=== PATIENT | male | born 1985 | race Caucasian/White ===

== ENCOUNTER 2021-01-02 11:29 | Emergency (ER) | payer OTHER ==
[~2021-01-02] VITALS: Ht 180.3 cm; Wt 100.0 kg
[2021-01-02 14:27] LABS: BASO % 0.1 % (0.0-1.0); EOS # 0.1 10^3/uL (0.0-0.5); EOS % 0.9 % (0.0-3.0); HEMATOCRIT 46.1 % (42.0-52.0); HEMOGLOBIN 14.9 g/dl (13.5-17.5); LYMPH # 1.1 10^3/uL (1.5-5.0); LYMPH % 8.1 % (24.0-44.0); MEAN CORPUSCULAR HGB CONC 32.3 g/dl (32.0-36.5); MEAN CORPUSCULAR VOLUME 83.7 fl (80.0-96.0); MONO # 1.2 10^3/uL (0.0-0.8); MONO % 8.2 % (2.0-8.0); NEUTROPHILS # 11.6 10^3/uL (1.5-8.5); NEUTROPHILS % 82.3 % (36.0-66.0); PLATELET COUNT, AUTOMATED 216 10^3/uL (150-450); RED BLOOD COUNT 5.51 10^6/uL (4.30-6.10); WHITE BLOOD COUNT 14.1 10^3/uL (4.0-10.0)
[2021-01-02] MEDS ORDERED: VALA1TAB5 PO (14:28)
[2021-01-02 14:34] LABS: APPEARANCE, URINE CLEAR (CLEAR); BACTERIA, URINE AUTO NEGATIVE (NEGATIVE); BILIRUBIN, URINE AUTO NEGATIVE (NEGATIVE); BLOOD, URINE BLOOD 1+ (NEGATIVE); COLOR, URINE STRAW (YELLOW); GLUCOSE, URINE (UA) AUTO NEGATIVE (NEGATIVE); KETONE, URINE AUTO TRACE mg/dL (NEGATIVE); LEUKOCYTE ESTERASE, URINE AUTO NEGATIVE (NEGATIVE); MUCUS, URINE SMALL (NEGATIVE); NITRITE, URINE AUTO NEGATIVE (NEGATIVE); PROTEIN, URINE AUTO NEGATIVE (NEGATIVE); RBC, URINE AUTO 2 /HPF (0-3); SPECIFIC GRAVITY URINE AUTO 1.006 (1.002-1.035); SQUAMOUS EPITHELIAL CELL UR AU 0 /HPF (0-6); UROBILINOGEN, URINE AUTO 0.2 mg/dL (0.0-2.0); WBC, URINE AUTO 1 /HPF (0-3)
[2021-01-02 14:56] LABS: BLOOD UREA NITROGEN 13 MG/DL (7-18); CARBON DIOXIDE LEVEL 27 MEQ/L (21-32); CHLORIDE LEVEL 107 MEQ/L (98-107); CK-MB VALUE MASS < 1.0 NG/ML (<3.6); CPK CREATINE PHOSPHOKINASE 206 U/L (39-308); CREATININE FOR GFR 1.27 MG/DL (0.70-1.30); GLOMERULAR FILTRATION RATE > 60.0 (>60); GLUCOSE, FASTING 80 MG/DL (70-100); MB/CK RELATIVE INDEX 0.49 (< OR =4); POTASSIUM SERUM 4.2 MEQ/L (3.5-5.1); SODIUM LEVEL 139 MEQ/L (136-145); TROPONIN I < 0.02 NG/ML (< 0.10)
[2021-01-02 15:29] VITALS: BP 137/67
== END 2021-01-02 15:30 | disposition home or self-care (01) ==
LOC: M ED 11:29
DX: B02.9 Zoster without complications (principal); R53.83 Other fatigue; G89.29 Other chronic pain; M54.5 Low back pain; F17.200 Nicotine dependence, unspecified, uncomplicated

== ENCOUNTER 2021-04-27 12:42 | Inpatient (IN) | payer OTHER ==
[~2021-04-27] VITALS: Ht 180.3 cm; Wt 96.8 kg
[~2021-04-27 12:42] MED LIST: VALA1TAB5 PO
--- OUTSIDE RECORDS SUMMARY | 2021-04-27 12:47 | CCD ---
Author Author [facility] Organization [facility] Address Unknown Phone Unavailable Care Team Providers Care Fat Purification Worker Name Role Phone Betancourt, Yas CONCRETE BUILDING ASSEMBLER Unavailable Unavailable Betancourt, Yas CONCRETE BUILDING ASSEMBLER Unavailable Unavailable Betancourt, Yas CONCRETE BUILDING ASSEMBLER Unavailable Unavailable Betancourt, Yas CONCRETE BUILDING ASSEMBLER Unavailable Unavailable Betancourt, Yas CONCRETE BUILDING ASSEMBLER Unavailable Unavailable Betancourt, Yas CONCRETE BUILDING ASSEMBLER Unavailable Unavailable Betancourt, Yas CONCRETE BUILDING ASSEMBLER Unavailable Unavailable Betancourt, Yas CONCRETE BUILDING ASSEMBLER Unavailable Unavailable Betancourt, Yas CONCRETE BUILDING ASSEMBLER Unavailable Unavailable Betancourt, Yas CONCRETE BUILDING ASSEMBLER Unavailable Unavailable Betancourt, Yas CONCRETE BUILDING ASSEMBLER Unavailable Unavailable Betancourt, Yas CONCRETE BUILDING ASSEMBLER Unavailable Unavailable Betancourt, Yas CONCRETE BUILDING ASSEMBLER Unavailable Unavailable Didier Palomino MD Unavailable Unavailable Didier Palomino MD Unavailable Unavailable Didier Palomino MD Unavailable Unavailable Didier Palomino MD Unavailable Unavailable Didier Palomino MD Unavailable Unavailable Didier Palomino MD Unavailable Unavailable UNKNOWN, [facility] Unavailable Unavailable Yeimy AMADO MD Unavailable Unavailable Yeimy AMADO MD Unavailable Unavailable Yeimy AMADO MD Unavailable Unavailable Yeimy AMADO MD Unavailable Unavailable Yeimy AMADO MD Unavailable Unavailable Yeimy AMADO MD Unavailable Unavailable Yeimy AMADO MD Unavailable Unavailable Yeimy AMADO MD Unavailable Unavailable Yeimy AMADO MD Unavailable Unavailable Yeimy AMADO MD Unavailable Unavailable Yeimy AMADO MD Unavailable Unavailable Yeimy AMADO MD Unavailable Unavailable Yeimy AMADO MD Unavailable Unavailable Yeimy AMADO MD Unavailable Unavailable Yeimy AMADO MD Unavailable Unavailable Yeimy AMADO MD Unavailable Unavailable Yeimy AMADO MD Unavailable Unavailable ANEUDY, Yeimy CAO MD Unavailable Unavailable ANEUDY, Yeimy CAO MD Unavailable Unavailable ANEUDY, Yeimy CAO MD Unavailable Unavailable NON, PHYSICIAN STAFF Unavailable Unavailable Re-disclosure Warning The records that you are about to access may contain information from federally-assisted alcohol or drug abuse programs. If such information is present, then the following federally mandated warning applies: This information has been disclosed to you from records protected by federal confidentiality rules (42 CFR part 2). The federal rules prohibit you from making any further disclosure of this information unless further disclosure is expressly permitted by the written consent of the person to whom it pertains or as otherwise permitted by 42 CFR part 2. A general authorization for the release of medical or other information is NOT sufficient for this purpose. The Federal rules restrict any use of the information to criminally investigate or prosecute any alcohol or drug abuse patient.The records that you are about to access may contain highly sensitive health information, the redisclosure of which is protected by Article 27-F of the [facility] Public Health law. If you continue you may have access to information: Regarding HIV / AIDS; Provided by facilities licensed or operated by the [facility] Office of Mental Health; or Provided by the [facility] Office for People With Developmental Disabilities. If such information is present, then the following [facility] mandated warning applies: This information has been disclosed to you from confidential records which are protected by state law. State law prohibits you from making any further disclosure of this information without the specific written consent of the person to whom it pertains, or as otherwise permitted by law. Any unauthorized further disclosure in violation of state law may result in a fine or long term sentence or both. A general authorization for the release of medical or other information is NOT sufficient authorization for further disc losure. Encounters Encounter Providers Location Date Indications Data Source(s ) Emergency Attender: NASH AMADO MDConsultant: PHIL UNKNOW N 04/18/2021 05:13:00 PM EDT - 04/18/2021 08:09:00 PM EDT [facility] Patient discharged. Emergency Attender: Didier Palomino MDConsultant: STAFF NON 04/11/2021 11:48:00 AM EDT - 04/11/2021 02:20:00 PM EDT [facility] Patient discharged. Outpatient Attender: Yas Boykin adriana 12/28/2020 03:35:00 PM EDT [facility] ([facility]) Medications Medication Brand Name Start Date Product Form Dose Route Admi nistrative Instructions Pharmacy Instructions Status Indications Reaction Description Data Source(s) Mupirocin 0.02 MG/MG Topical Ointment Mupirocin 12/28/2020 12:00:00 AM EDT active [facility] ([facility]) Cephalexin 500 MG Oral Tablet Cephalexin 12/28/2020 12:00:00 AM EDT ORAL active [facility] ([facility] Ibuprofen 800 MG Oral Tablet Ibuprofen 12/28/2020 12:00:00 AM EDT ORAL active [facility] ([facility] Insurance Providers Payer name Policy type / Coverage type Policy ID Covered libertarian ID Covered libertarian's relationship to chavez Policy Chavez Plan Information [facility] [employer] [id number] [facility] [employer] - O/P [id number] 18 [id number] [facility] [employer] - O/P [id number] Problems, Conditions, and Diagnoses Code Display Name Description Problem Type Effective Dates Data Source(s) L57961 Personal history of nicotine dependence Personal history of nicotine dependence Diagnosis 04/18/2021 05:13:00 PM EDT [facility] Z8616 PERSONAL HISTORY OF COVID-19 PERSONAL HISTORY OF COVID -19 Diagnosis 04/18/2021 05:13:00 PM EDT [facility] U47758 CONTACT WITH AND SUSPECTED EXPOSURE TO C OVID-19 CONTACT WITH AND SUSPECTED EXPOSURE TO COVID-19 Diagnosis 04/18/2021 05:13:[address] [facility] E860 Dehydration Dehydration Diagnosis 04/18/2021 05:13:00 PM EDT [facility] J069 Acute upper respiratory infection, unspe cified Acute upper respiratory infection, unspecified Diagnosis 04/18/2021 05:13:00 PM EDT [facility] R059 Cough, unspecified Cough, unspecified Diagnosis 05:13:00 PM EDT [facility] J40 Bronchitis, not specified as acute or ch ronic Bronchitis, not specified as acute or chronic Diagnosis 04/11/2021 11:48:00 AM EDT [facility] R0600 Dyspnea, unspecified Dyspnea, unspecified Diagnosis 04/11/2021 11:48:00 AM EDT [facility] Surgeries/Procedures Procedure Description Date Indications Data Source(s) OFFICE OUTPATIENT NEW 30 MINUTES 12/28/2020 12:00:00 A M EDT [facility], [facility]) Results ID Date Data Source [id number] 04/18/2021 05:13:00 PM EDT [facility] 1 OrderSheet [facility] Emergency Department [address] [place] [address] Phone #: ext- [phone] 04/18/2021 16:46 Patient: JAH ZAMORA Sex: M : 1985 Age: 35yWEIGHT:95.2 kg (S) HEIGHT:71 inches (S) BMI:29.3ALLERGIES: NoneCHIEF COMPLAINT: coughDIAGNOSIS: O/E - dehydrated, Upper respiratory infectionLAB ORDERSOrder Description Priority Entered Acknowledged InitialedCBC w Diff STAT 18:06 04/18/2021 Ack'd: 18:08 18:25 Aneudy Coughlin Norma MD; Oleksandr CoughlinCMP STAT 18:06 04/18/2021 Ack'd: 18:08 18:25 Aneudy Coughlin Norma MD; Oleksandr CoughlinLactic Acid STAT 18:06 04/18/2021 Ack'd: 18:08 18:25 Aneudy Coughlin Norma MD; Oleksandr CoughlinInfluenza Nasal A B STAT 18:06 04/18/2021 Ack'd: 18:08 18:25 Aneudy Coughlin Norma MD; Oleksandr CoughlinRSV STAT 18:06 04/18/2021 Ack'd: 18:08 18:25 Aneudy Coughlin Norma MD; Oleksandr CoughlinCORONAVIRUS STAT 18:06 04/18/2021 Ack'd: 18:09 18:25 MUKUND Coughlin-19 (Not Nash Amado MD; Oleksandr CoughlinSymptomatic asDefined by CDC)(04/18/2021) (NotFirst Test) (NotHospitalized) (Not) (NotResident inCongregate CareSetting) (NotEmployed inHealthcare Setting)Magnesium STAT 18:06 04/18/2021 Ack'd: 18:09 18:25 Aneudy Coughlin Norma MD; Oleksandr Coughlin 2 OrderSheet [facility] Emergency Department [address] [place] [address] Phone #: ext- [phone] 04/18/2021 16:46 --------- Patient: JAH ZAMORA Sex: M : 1985 Age: 35yDIAGNOSTIC STUDY ORDERSOrder Description Priority Entered Acknowledged InitialedChest Portable 1 STAT 18:06 04/18/2021 Ack'd: 18:09 18:25 Jorje Coughlin Norma MD; Oleksandr Coughlin(Oxygen?(No)) NOTES: ?COVID Reason for Study: CongestionMEDICATION/IV/DRIP/FLUID ORDERSOrder Description Priority Entered Acknowledged InitialedIV NS 1000 mL 18:06 04/18/2021 18:26 Ced,Bolus : Bolus 1000 Nash Amado MD; Sukhwinder (X1)IV NS 1000 mL 18:15 04/18/2021 19:11 Ced,Bolus : Bolus 1000 Nash Amado MD; OleksandrmL (X1)DuoNeb 3 mL X2 19:15 04/18/2021 19:27 CedDoses (Filtered): 6 Nash Amado MD; Sukhwinder (3 mL [id number])GENERAL ORDERSOrder Description Priority Entered Acknowledged Initialed[Electronically signed by Oleksandr Coughlin (20:09 04/18/2021)][Electronically signed by Nash Amado MD (06:33 04/19/2021)][Electronically locked by Oleksandr Coughlin (20:09 04/18/2021)] Name Value Range Interpretation Code Description Data Marlene rce(s) Supporting Document(s) ID Date Data Source [id number] 04/18/2021 05:13:00 PM EDT [facility] 1 Medication Reconciliation Report [facility] Emergency Department [address] [place] [address] Phone #: ext- [phone] 04/18/2021 16:46 Patient: JAH ZAMORA Sex: M : 1985 Age: 35yWeight: 95.2 kgHeight/Length: 71 in.BMI: 29.3ALLERGIES: NoneThe patient's Home Medications are listed below:CONTINUE TAKING THE FOLLOWING MEDICATIONS: Antidepressant name unknown busPIRone HCl Oral Cyclobenzaprine HCl Oral Gabapentin Oral Melatonin Oral (3 mg) ProAir HFA Inhalation 2 puffs, prn Tessalon Perles Oral, prn traZODone HCl OralThe source(s) of the original Home Medication information:patientThe following Medications were given to the patient in the Emergency Department:NS [IV] IV Fluids bolus 1000 mL wide open, administered: 18:26 04/18/2021NS [IV] IV Fluids bolus 1000 mL wide open, administered: 19:11 1Duoneb [Neb Tx] Neb TX 2 unit dose, administered: 19:27 04/18/2021The following Medications were prescribed to the patient: 2 Medication Reconciliation Report [facility] Emergency Department [address] [place] [address] Phone #: ext- [phone] 04/18/2021 16:46 Patient: JAH ZAMORA Sex: M : 1985 Age: 35yalbuterol sulfate HFA 90 mcg/actuation aerosol inhaler Inhale 2 puff four times a day as needed for 7 days-- prn wheezing. Dispense 18 gram. Refills: 1. Substitution permitted. Note to Pharmacy - USE RxDISCOUNT CARD: $45.56, BIN:[id number], PCN:ANGELA, Group:[id number], ID:[id number].Pharmacy - [facility] [address] [address] [facility] [address] ; [place] [address]. . -- Nash Amado MD Name Value Range Interpretation Code Description Data Marlene rce(s) Supporting Document(s) ID Date Data Source [id number] 04/18/2021 05:13:00 PM EDT [facility] 1 Medication Administration Record [facility] Emergency Department [address] [place] [address] Phone #: ext- [phone] 04/18/2021 16:46 Patient: JAH ZAMORA Sex: M : 1985 Age: 35yWeight: 95.2 kgHeight/Length: 71 inBMI: 29.3ALLERGIES: None Date/Time Medication Administered Medication OrderedStart NS [IV] IV NS 1000 mL Bolus : Bolus 569925:26 04/18/2021 Dose: IV Fluids mL (X1)Oleksandr Coughlin, Bolus: 1000 mL wide open---- Dispensed: 1000 mL bagStop Site: #1 left AC20:00 04/18/2021Oleksandr Coughlin,Start NS [IV] IV NS 1000 mL Bolus : Bolus 543005:11 04/18/2021 Dose: IV Fluids mL (X1)Oleksandr Coughlin, Bolus: 1000 mL wide open---- Dispensed: 1000 mL bagStop Site: #1 left AC20:00 04/18/2021Oleksandr Coughlin,Given DUONEB [NEB TX] DuoNeb 3 mL X2 Doses (Filtered):19:27 04/18/2021 Dose: 2 unit dose Nebulizer Neb TX 6 mL (3 mL X2 Doses)Oleksandr Coughlin,----Stop19:45 04/18/2021Oleksandr Coughlin, Name Value Range Interpretation Code Description Data Marlene rce(s) Supporting Document(s) ID Date Data Source [id number] 04/18/2021 05:13:00 PM EDT [facility] 1 General Instructions [facility] Emergency Department [address] [place] [address] Phone #: ext- [phone] 04/18/2021 16:46 Patient: JAH ZAMORA Sex: M : 1985 Age: 35yMild dehydrationAcute upper respiratory infection.INSTRUCTIONSDo not work (until cleared from quarantine when you receive negative covid results.).(drink plenty of fluids. you may take tylenol and motrin for pain. return if worse or any new symptoms.take the inhaler as instructed.).Warnings: Further evaluation is necessary.GENERAL WARNINGS: Return or contact your physician immediately if your condition worsens orchanges unexpectedly, if not improving as expected, or if other problems arise.Your Current Medications: Your current home medications have been reviewed.CONTINUE TAKING THE FOLLOWING MEDICATIONS:Antidepressant name unknown*.busPIRone HCl Oral.Cyclobenzaprine HCl Oral.Gabapentin Oral.Melatonin Oral : Tablet 3 mg.ProAir HFA Inhalation : 2 puffs, prn.Tessalon Perles Oral : prn.traZODone HCl Oral.Prescription Medications:albuterol sulfate HFA 90 mcg/actuation aerosol inh aler Inhale 2 puff four times a day as needed for 7 days-- prn wheezing. Dispense 18 gram. Refills: 1. Substitution permitted. Note to Pharmacy - USE RxDISCOUNT CARD: $45.56, BIN:[id number], PCN:ANGELA, Group:[id number], ID:[id number].Pharmacy - [facility] [address] [address] [facility] [address] ; [place] [address]. .Follow-up:Follow up with your doctor Wednesday even if well. Call for an appointment. Reason for referral: evaluation.Summary of care provided to patient via paper.Understanding of the discharge instructions verbalized by patient. 2 General Instructions [facility] Emergency Department [address] [place] [address] Phone #: ext- [phone] 04/18/2021 16:46 Patient: JAH ZAMORA Acc t#: [id number] Sex: M : 1985 Age: 35y ADDITIONAL INFORMATIONDehydration (Adult)Dehydration occurs when your body loses too much fluid. This may be the result of prolongedvomiting or diarrhea, excessive sweating, or a high fever. It may also happen if you don't drinkenough fluid when you're sick or out in the heat. Misuse of diuretics (water pills) can also be a cause.Symptoms include thirst, decreased urine output, and darker colored urine. You may also feel dizzy,weak, fatigued, or very drowsy. The diet described below is usually enough to treat dehydration. Insome cases, you may need medicine.Home care Drink at least 12, 8-ounce glasses of fluid every day to resolve the dehydration. Fluid may include water; orange juice; lemonade; apple, grape, or cranberry juice; clear fruit drinks; electrolyte replacement and sports drinks; and teas and coffee without caffeine. Don't drink alcohol. If you have been diagnosed with a kidney disease, ask your doctor how much and what types of fluids you should drink to prevent dehydration. If you have kidney disease, fluid can build up in the body. This can be dangerous to your health. If you have a fever, muscle aches, or a headache as a result of a cold or flu, you may take acetaminophen or ibuprofen, unless another medicine was prescribed. If you have chronic liver or kidney disease, or have ever had a stomach ulcer or gastrointestinal bleeding, talk with your healthcare provider before using these medicines. Don't take aspirin if you are younger than 18 and have a fever. In children with fever, aspirin raises the chance for severe liver injury and .Follow-up careFollow up with your healthcare provider, or as advised.When to seek medical adviceCall your healthcare provider right away if any of these occur: Continued vomiting Frequent diarrhea (more than 5 times a day); blood (red or black color) or mucus in diarrhea Swollen abdomen or increasing abdominal pain Reduced urine output or extreme thirst Fever of 100.4F (38C) or higher 3 General Instructions [facility] Emergency Department [address] [place] [address] Phone #: ext- [phone] 04/18/2021 16:46 Patient: JAH ZAMORA Sex: M : 1985 Age: 35yCall 911Call 911 or get medical care right away if you have any of the following: Weakness, dizziness, or fainting Unusual drowsiness or confusion Blood in vomit or stool [phone] [employer] [place] [address]. All rights reserved. This information is not intended as asubstitute for professional medical care. Always follow your healthcare professional's instructions.Viral Upper Respiratory Illness (Adult) 4 General Instructions [facility] Emergency Department [address] [place] [address] Phone #: ext- [phone] 04/18/2021 16:46 Patient: JAH ZAMORA Sex: M : 1985 Age: 35yYou have a viral upper respiratory illness (URI), which is another term for the comm on cold. Thisillness is contagious during the first few days. It is spread through the air by coughing and sneezing. Itmay also be spread by direct contact (touching the sick person and then touching your own eyes,nose, or mouth). Frequent handwashing will decrease risk of spread. Most viral illnesses go awaywithin 7 to 10 days with rest and simple home remedies. Sometimes the illness may last for severalweeks. Antibiotics will not kill a virus, and they are generally not prescribed for this condition.Home care If symptoms are severe, rest at home for the first 2 to 3 days. When you resume activity, don't let yourself get too tired. 5 General Instructions [facility] Emergency Department [address] [place] [address] Phone #: ext- [phone] 04/18/2021 16:46 Patient: JAH ZAMORA Sex: M : 1985 Age: 35y Don't smoke. If you need help stopping, talk with your healthcare provider. Avoid being exposed to cigarette smoke (yours or others'). You may use acetaminophen or ibuprofen to control pain and fever, unless another medicine was prescribed. If you have chronic liver or kidney disease, have ever had a stomach ulcer or gastrointestinal bleeding, or are taking blood-thinning medicines, talk with your healthcare provider before using these medicines. Aspirin should never be given to anyone under 18 years of age who is ill with a viral infection or fever. It may cause severe liver or brain damage. Your appetite may be poor, so a light diet is fine. Stay well hydrated by drinking 6 to 8 glasses of fluids per day (water, soft drinks, juices, tea, or soup). Extra fluids will help loosen secretions in the nose and lungs. Hpnl-ejq-wwnipvv cold medicines will not shorten the length of time you're sick, but they may be helpful for the following symptoms: cough, sore throat, and nasal and sinus congestion. If you take prescription medicines, ask your healthcare provider or pharmacist which lzsj-nmk-hblhdmg medicines are safe to use. (Note: Don't use decongestants if you have high blood pressure.)Follow-up careFollow up with your healthcare provider, or as advised.When to seek medical adviceCall your healthcare provider right away if any of these occur: Cough with lots of colored sputum (mucus) Severe headache; face, neck, or ear pain Difficulty swallowing due to throat pain Fever of 100.4F (38C) or higher, or as directed by your healthcare provider Call 911 Call 911 if any of these occur: Chest pain, shortness of breath, wheezing, or difficulty breathing Coughing up blood Very severe pain with swallowing, especially if it goes along with a muffled voice [employer]. [address] [place] [address]. All rights reserved. 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 Always follow your healthcare professional's instructions. You have been given the following additional information: Dehydration (Adult) URI, Viral, No Abx (Adult) Do not work (until cleared from quarantine when you rec eive negative covid results.).(Electronically signed by Nash Amado MD 04/19/2021 06:33) Name Value Range Interpretation Code Description Data Marlene rce(s) Supporting Document(s) ID Date Data Source [id number] 04/18/2021 05:13:00 PM EDT [facility] 1 Clinical Report - Nurses [facility] Emergency Department [address] [place] [address] Phone #: ext- [phone] 04/18/2021 16:46 Patient: JAH ZAMORA Sex: M : 1985 Age: 35yTRIAGEArrived by private vehicle. Historian: patient. Accompanied by spouse (In Vehicle).Triage time: 16:47 04/18/2021. Acuity: LEVEL 3.Chief Complaint: (COVID symptoms).Alert.Onset. (8 days ago). ( Pt states he has been sick for the last 8 days, chest tightness, sore throat, chills,productive clear cough, feels that his feet and hands are tingly. Pt states he was seen in this ER 1 weekago and COVID test at this time was negative however pt continues to feel worse and is concerned. Ptstates his lungs feel very sore. 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 --16:53 04/18/21 Ginny Lozano R.N.16:47 04/18/21. Pain level now 12/28. --16:53 10/29/21 Ginny Lozano R.N.20:08 04/18/21. BP: deferred. HR: deferred. RR: deferred. O2 saturation: deferred. Temp: deferred. Painlevel now deferred. --20:09 04/18/21 CdeOleksandr.Weight: 95.2 kg stated. Height/Length: 71 inches Per Patient. BMI: 29.3. --16:45 04/18/21 Ginny Lozano R.N.MedicationsProAir HFA Inhalation 2 puffs, as needed. --16:51 04/18/21 Ginny Lozano R.N. Tessalon Perles Oral, as needed. --16:51 04/18/21 Ginny Lozano R.N. Antidepressant name unknown. busPIRone HCl Oral. Cyclobenzaprine HCl Oral. Gabapentin Oral. Melatonin Oral (Tablet 3 mg). traZODone HCl Oral. --17:21 04/18/21 Valerie Donnelly R.N.AllergiesNone. --17:21 04/18/21 Valerie Donnelly R.N.PROBLEMS:Arthritis.Anxiety Reaction. 2 Clinical Report - Nurses [facility] Emergency Department [address] [place] [address] Phone #: ext- [phone] 04/18/2021 16:46 Patient: JAH ZAMORA Sex: M : 1985 Age: 35y COVID-19. Herpes Zoster. Depression. --17:21 04/18/21 Valerie Donnelly R.N. Medication/allergy information source: the patient. --16:53 04/18/21 Ginny Lozano R.N. ADDITIONAL SURGERIES: None. --17:21 04/18/21 Valerie Donnelly R.N. History PAST MEDICAL HX: Immunizations: up-to-date and (Pt has had COVID-19 vaccine). SOCIAL HX: Former smoker (Pt vapes). No alcohol use or drug use. He was offered HIV testing but declined. Patient education was provided. He was of fered hepatitis C testing but declined. Patient education was provided. ( COVID screen positive for cough, chest tightness, sore throat; Pt has had contact with another coworker who is also currently on quarantine, pt denies travel, denies loss of taste/smell). He has not traveled outside the [place] Infectious disease exposure: No infectious disease exposure. The patient may have been exposed to Coronavirus. Mask placed on patient. Staff notified. Patient taken to negative air flow isolation room. Patient is not a known carrier of tuberculosis, hepatitis, HIV, MRSA or VRE. Patient is not a known carrier of CRE. SELF HARM ASSESSMENT: Self harm assessment was performed. The patient answered "no" to the question(s) "Do you have thoughts of harming or killing yourself?" and "Do you have a plan for harming or killing yourself?". ABUSE ASSESSMENT: Abuse assessment. The patient had positive responses to the question(s) "Do you feel safe in your home?". Abuse denied. No suspicion of abuse. No report of abuse. NUTRITIONAL RISK ASSESSMENT: The nutritional risk assessment revealed no deficiencies. FUNCTIONAL ASSESSMENT: Functional assessment: no impairments noted. LEARNING NEEDS ASSESSMENT: The learning needs assessment revealed no barriers. FALL RISK ASSESSMENT: Fall risk assessment completed. No risk factors identified. SKIN INTEGRITY ASSESSMENT: Skin integrity risk assessment completed. No skin integrity risk identified. --16:53 04/18/21 Ginny Lozano R.N. Interventions Identification band on patient. --16:53 04/18/21 Ginny Lozano R.N.PHYSICAL ASSESSMENTGENERAL / NEURO / PSYCH: Alert. Oriented X 4. Appears in no acute distress. 3 Clinical Report - Nurses [facility] Emergency Department [address] [place] [address] Phone #: ext- [phone] 04/18/2021 16:46 Patient: JAH ZAMORA Sex: M : 1985 Age: 35y HEENT: Pupils equal, round and reactive to light. No facial asymmetry noted. Mucous membranes are pink. RESPIRATORY: Mild respiratory distress. The patient can speak in full sentences. Chest nontender. Decreased breath sounds diffusely over both lungs. Expiratory wheezes in the left upper lung. CVS: Normal sinus rhythm noted. Capillary refill less than 2 seconds. Pulses within normal limits. GI / : Abdomen soft and nontender and normal bowel sounds. SKIN: Skin intact. Skin is warm and dry. Normal skin turgor. --17:32 04/18/21 Oleksandr Coughlin.NURSING PROGRESS NOTESReassurance given. Two patient identifiers checked. Call light placed in reach. Side rails up x 2. Bedplaced in lowest position. Brakes of bed on. Patient ready for evaluation. --17:32 04/18/21 Oleksandr Coughlin 17:32 04/18/21. BP: 144/96. MAP: 112. HR: 108. RR: 20. O2 saturation: 96%. Temp: 98 F. Pain level now: 09/28. --17:32 04/18/21 Oleksandr Coughlin 18:13 04/18/21. BP: 143/95. MAP: 111. HR: 102. O2 saturation: 95%. --18:13 04/18/21 Jeff Ashley 18:26 04/18/2021 Site #1 started via IV in the left antecubital space with an 20g angiocath, with aseptic technique and good blood return; one attempt. Saline lock flushed with 10 mL saline. --18:26 04/18/21 Oleksandr Coughlin 18:26 04/18/2021 Started bag #1 1000 mL IV Fluids NS; bolus of 1000 mL wide open via site #1 via IV pump. Allergies verified and confirmed 5 rights. IV patency established. IV site checked: no pain, redness, or swelling. IV flushed thoroughly pre- and post- medication administration. Information reviewed with patient including reason for taking this medication, signs of allergic reaction and precautions. Verbalizes understanding. --18:26 04/18/21 Oleksandr Coughlin 19:11 04/18/2021 Started bag #1 1000 mL IV Fluids NS; bolus of 1000 mL wide open via site #1 via IV pump. Allergies verified and confirmed 5 rights. IV patency established. IV site checked: no pain, redness, or swelling. IV flushed thoroughly pre- and post-medication administration. Information reviewed with patient including reason for taking this medication, signs of allergic reaction and precautions. Verbalizes understanding. --19:11 04/18/21 Oleksandr Coughlin 19:27 04/18/2021 Duoneb Neb TX Nebulizer 2 unit dose given. Given by the nurse. Allergies verified and confirmed 5 rights. Information reviewed with patient including reason for taking this medication, signs of allergic reaction and precautions. Verbalizes understanding. --19:27 04/18/21 Oleksandr Coughlin Monitoring of patient in place. Reassurance given to the patient. Reassessment after medication administered. Respiratory distress still present but improving. Reassessment after fluids administered. He is calm and resting quietly. Overall patient status is the same. RESPIRATORY: No respiratory distress. Decreased breath sounds diffusely over both lungs. CVS: Normal sinus rhythm noted. SKIN: Skin is warm and dry. Skin color within normal limits. Two patient identifiers checked. Call light 4 Clinical Report - Nurses [facility] Emergency Department [address] [place] [address] Phone #: ext- [phone] 04/18/2021 16:46 Patient: JAH ZAMORA Sex: M : 1985 Age: 35y placed in reach. Side rails up x 2. Bed placed in lowest position. Brakes of bed on. Patient waiting for disposition. --19:33 04/18/21 Oleksandr Coughlin 19:39 04/18/21. BP: 135/86. MAP: 102. HR: 85. O2 saturation: 100%. --19:40 10/29/21 Jeff Ashley.DISPOSITION / DISCHARGE 20:01 04/18/21. BP: 157/77. MAP: 103. HR: 94. RR: 18. O2 saturation: 99%. Temp: 98.3 F. --20:02 04/18/21 Jeff Ashley Departure time: 20:07 04/18/2021. No learning barriers present. Discharge instructions provided and reviewed with the patient. Reviewed warnings (rETURN FOR WORSENING CONDITION). Reviewed medication(s) side effects, precautions, dosing and course information. Prescription(s) given to the patient and sent electronically to pharmacy (albuterol inh.). Reviewed referral to a primary care physician for followup. Activity restrictions (rest) reviewed. Work note given. Patient verbalized understanding. Written instructions provided in Niuean. No treatment instructions, diet instructions, follow up contact number given or stop smoking instructions. The patient was discharged by the physician. He was discharged home and unaccompanied at time of discharge. He left ambulatory and via private vehicle. Patient driving. --20:07 04/18/21 Oleksandr Coughlin 20:07 04/18/21. Pain level now: 0/10. --20:07 04/18/21 Oleksandr Coughlin 19:45 04/18/2021 Donavon MCCARTHY discontinued upon discharge. --20:08 04/18/21 Oleksandr Coughlin 19:57 04/18/2021 Site #1 removed upon discharge. Bandage applied. --20:07 04/18/21 Oleksandr Coughlin 20:00 04/18/2021 IV Fluids NS vi a IV site #1 Discontinued: upon discharge. Total amount infused: 1000 mL. --20:08 04/18/21 Oleksandr Coughlin 20:00 04/18/2021 IV Fluids NS via IV site #1 Discontinued: upon discharge. Total amount infused: 1000 mL. IV patency established. IV site checked: no pain, redness, or swelling. IV flushed thoroughly. --20:08 04/18/21 Oleksandr Coughlin.Locked/Released at 04/18/2021 20:09 by Oleksandr Coughlin Name Value Range Interpretation Code Description Data Marlene rce(s) Supporting Document(s) ID Date Data Source [id number] 04/18/2021 05:13:00 PM EDT [facility] 1 Clinical Report - Physicians/Mid Levels [facility] Emergency Department [address] [place] [address] Phone #: ext- [phone] 04/18/2021 16:46 Patient: JAH ZAMORA Sex: M : 1985 Age: 35y Arrived- By ambulance. Historian- patient and EMS personnel. Disposition decision: 19:55 04/18/2021.HISTORY OF PRESENT ILLNESS Chief Complaint: COUGH. This started 8 days ago and is still present. At its maximum, severity described as moderate. When seen in the E.D., severity described as mild. Modifying factors- worsened by cough. Relieved by rest. No loss of appetite, weight loss, headache, visual disturbance or muscle aches. No weakness. He has had fatigue. Denies sleep problem. (Onset. (8 days ago). ( Pt states he has been sick for the last 8 days, chest tightness, sore throat, chills, productive clear cough, feels that his feet and hands are tingly. Pt states he was seen in this ER 1 week ago and COVID test at this time was negative however pt continues to feel worse and is concerned. Pt states his lungs feel very sore. Pt finished prescribed prednisone, was also given tessalon and proair).). Similar symptoms previously. Recent medical care: The patient was seen recently by a health care provider.REVIEW OF SYSTEMSNo fever, sinus drainage, nasal congestion or difficulty breathing. No chest pain or pain, abdominal painor pain or nausea. No vomiting, diarrhea, black stools or bloody stools. No skin rash or rash, back painor pain or calf pain. No headache, blackouts, double vision or vision or fever. No ear pain, runny nose,difficulty breathing, vomiting or urinary frequency. No hematuria, joint pain, headache, seizure or easybruising. No difficulty with urination. The patient has had a sore throat, chills and a sore throat, coughand cough. He has had chills and nausea. No difficulty with ambulation.PAST HISTORYSee nurses notes. Problems: Anxiety Reaction. Depression. Additional Surgeries: None. Medications: Antidepressant name unknown. busPIRone HCl Oral. Cyclobenzaprine HCl Oral. Gabapentin Oral. 2 Clinical Report - Physicians/Mid Levels [facility] Emergency Department [address] [place] [address] Phone #: ext- [phone] 04/18/2021 16:46 Patient: JAH ZAMORA Sex: M : 1985 Age: 35y Melatonin Oral (Tablet 3 mg). traZODone HCl Oral. Tessalon Perles Oral, as needed. ProAir HFA Inhalation 2 puffs, as needed. Allergies: None.SOCIAL HISTORYNo drug use.ADDITIONAL NOTESThe nursing notes have been reviewed.PHYSICAL EXAMVital Signs: 04/18/2021 20:07 Pain level now: 0/10.04/18/2021 20:01 BP: 157/77. MAP: 103. HR: 94. RR: 18. O2 saturation: 99%. Temp: 98.3 F.04/18/2021 19:39 BP: 135/86. MAP: 102. HR: 85. O2 saturation: 100%.04/18/2021 18:13 BP: 143/95. MAP: 111. HR: 102. O2 saturation: 95%.04/18/2021 17:32 BP: 144/96. MAP: 112. HR: 108. RR: 20. O2 saturation: 96%. Temp: 98 F. Pain levelnow: 4/10. Have been reviewed and appear to be correct. Hypertensive. Heart rate normal.Respiratory rate normal. Temperature normal. Oxygen saturation normal.Appearance: Alert. No acute distress.Eyes: Pupils equal, round and reactive to light. Eyes normal inspection.ENT: Ears normal. Nose normal. Pharynx normal.Neck: Normal inspection. Neck supple.CVS: Normal heart rate and rhythm. Heart sounds normal. Pulses normal.Respiratory: No respiratory distress. Mild bilateral wheezes present. Chest nontender.Abdomen: No visible injury. Soft and nontender. Bowel sounds normal.Back: Normal inspection.Skin: Skin warm and dry. Normal skin color. No rash. Normal skin turgor.Extremities: Extremities exhibit normal ROM. No lower extremity edema.Neuro: Oriented X 3. No motor deficit. No sensory deficit.LABS, X-RAYS, AND EKGLaboratory Tests: CBC w Diff: (CHEN: 04/18/2021 18:22) ( MsgRcvd 04/18/2021 19:10) Final results Test Result Flag Units (Reference) CBC W/AUTOMATED DIFF COMPLETE BLOOD COUNT WBC 14.1 H 10/uL (4.2 - 11.0) RBC 5.58 10/uL (4.50 - 6.30) HEM OGLOBIN 15.7 g/dL (14.0 - 16.0) HEMATOCRIT 47.0 % (41.0 - 51.0) MCV 84.2 fL (80.0 - 94.0) MCH 28.1 pg (27.0 - 34.0) MCHC 33.4 g/dL (31.0 - 36.0) 3 Clinical Report - Physicians/Mid Levels [facility] Emergency Department [address] [place] [address] Phone #: ext- [phone] 04/18/2021 16:46 ------ Patient: JAH ZAMORA Sex: M : 1985 Age: 35y RDW 13.4 % (11.5 - 14.8) PLATELETS 275 10/uL (150 - 450) MPV 10.2 fL (7.4 - 10.4) NEUT 53.0 % (37.0 - 80.0) LYMPH 26.5 % (25.0 - 40.0) MONO 10.0 H % (3.0 - 8.0) EOS 9.4 H % (0.0 - 7.0) BASO 0.5 % (0.0 - 2.0) %IG 0.6 H % (0.0 - 0.0) %NRBC 0.0 % (0.0 - 0.0) #NEUT 7.45 H 10/uL (2.00 - 6.90) #LYMPH 3.73 H 10/uL (0.60 - 3.40) #MONO 1.41 H 10/uL (0.00 - 0.90) #EOS 1.32 H 10/uL (0.00 - 0.70) #BASO 0.07 10/uL (0.00 - 0.20) #IG 0.09 10/uL (0.00 - 0.10) #NRBC 0.00 10/uL (0.00 - 0.00) MANUAL DIFF SEE BELOW SEGS 63 % (37 - 80) %LYMPH 20 L % (25 - 40) %MONO 8 % (3 - 8) %EOS 9 H % (0 - 7) RBC MORPH SEE BELOW { SICKLE CELL (NORMAL: NONE SEEN ) SMUDGE CELLS 1+ A (NORMAL: NONE PLT EST NORMAL (NORMAL: NASH COMMENT: CMP: (CHEN: 04/18/2021 18:22) ( MsgRcvd 04/18/2021 18:51) Final results Test Result Flag Units (Reference) COMPREHENSIVE METABOLIC PANEL COMPREHENSIVE METABOLIC PANEL SODIUM 139 mEq/L (134 - 153) POTASSIUM 4.2 mEq/L (3.6 - 5.0) CHLORIDE 105 mEq/L (98 - 107) CO2 24 MEQ/L (22 - 30) GLUCOSE 136 H MG/DL (70 - 99) BUN 11 MG/DL (7 - 21) CREATININE 1.1 MG/DL (0.7 - 1.5) BUN/CREAT 10 (8 - 27) TOTAL PROTEIN 7.1 G/DL (6.3 - 8.2) ALBUMIN 4.5 G/DL (3.9 - 5.0) GLOBULIN 2.6 GM/DL (2.4 - 3.2) A/G RATIO 1.7 (0.8 - 2.0) CALCIUM 9.0 MG/DL (8.4 - 10.2) TOTAL BILI <0.7 MG/DL (0.2 - 1.3) ALKALINE PHOS 55 U/L (38 - 126) SGOT/AST 13 U/L (5 - 40) SGPT/ALT 20 U/L (7 - 56) ANION GAP 10.0 mmol/L (8.0 - 16.0) AGE 35 yrs NON-AA GFR >60 mL/min AFR AMER GFR >60 mL/min Male GFR Interprentation 20-49 yrs >60 mL/min Uvuhma27-08 yrs >56 mL/min Normal 60-69 yrs >49 mL/min Normal 70-79yrs>42 mL/min Normal 80 and above >35 mL/min Normal Female GFR 4 Clinical Report - Physicians/Mid Levels [facility] Emergency Department [address] [place] [address] Phone #: ext- [phone] 04/18/2021 16:46 Patient: JAH ZAMORA Sex: M : 1985 Age: 35y Interpretation 20-39 yrs >60 mL/min Normal 40-49 yrs >58 mL/min Normal 50-59 yrs >51 mL/min Normal 60-69 yrs >45 mL/min Normal 70-79 yrs >39 mL/min Normal 80 and above >32 mL/min Normal Lactic Acid: (CHEN: 04/18/2021 18:22) ( MsgRcvd 04/18/2021 18:42) Final results Test Result Flag Units (Reference) LACTIC ACID 2.5 H MMOL/L (0.2 - 2.2) Influenza Nasal A B: (CHEN: 04/18/2021 18:22) ( MsgRcvd 04/18/2021 19:01) Final results Test Result Flag Units (Reference) INFLUENZA A NEGATIVE (NORMAL: NEGAT INFLUENZA B NEGATIVE (NORMAL: NEGAT INFLUENZA A REENTER NEGATIVE (NORMAL: NEGAT INFLUENZA B REENTER NEGATIVE (NORMAL: NEGAT PROCEDURAL CONTROL VALID KIT LOT # [id number] 04/18/21.MRW. KIT EXP DATE 02.16.22 04/18/21.MRW.The Influenza A utilizing an isothermal nucleic acid amplification technology for thequalitative detection of influenza A and B viral RNA.Negative results do not preclude influenza virus infection and should not beused as the sole basis for diagnosis, treatment or other patient managementdecisions. RSV: (CHEN: 04/18/2021 18:22) ( MsgRcvd 04/18/2021 18:53) Final results Test Result Flag Units (Reference) RSV ANTIGEN NEGATIVE (NORMAL: NEGAT RSV ANTIGEN REENTER NEGATIVE (NORMAL: NEGAT { PROCEDURAL CONTROL VALID ){ KIT LOT # [id number] ){ KIT EXP DATE 10.01.21 ) Magnesium: (CHEN: 04/18/2021 18:22) ( MsgRcvd 04/18/2021 18:51) Final results Test Result Flag Units (Reference) MAGNESIUM 2.0 MG/DL (1.7 - 2.2) Chest Portable 1 View: (CHEN: 04/18/2021 18:06) ( MsgRcvd 04/18/2021 19:46) In Progress CHEST PORTABLE Reason(s): Congestion TRANSPORTATION: P IV? O2? Oxygen?(No) Room: ED CMTS: ?COVID.PROGRESS AND PROCEDURESCourse of Care: pt presents for evaluation of his viral illness. he was tested negative for covid 1 weekago. he was retested today. cxr negative. flu and rsv negative. he was given 2 l of ns and 2 duonebs.he felt markedly better. a rx for inhalers written. pt w as discharged and instructed to quarantine until hiscovid results are negative. Patient/family counseled. 5 Clinical Report - Physicians/Mid Levels [facility] Emergency Department [address] [place] [address] Phone #: ext- [phone] 04/18/2021 16:46 Patient: JAH ZAMORA Sex: M : 1985 Age: 35y Disposition: Discharged. Condition: good and stable.CLINICAL IMPRESSION Mild dehydration Acute upper respiratory infection.INSTRUCTIONS Do not work (until cleared from quarantine when you receive negative covid results.). (drink plenty of fluids. you may take tylenol and motrin for pain. return if worse or any new symptoms. take the inhaler as instructed.). Warnings: Further evaluation is necessary. GENERAL WARNINGS: Return or contact your physician immediately if your condition worsens or changes unexpectedly, if not improving as expected, or if other problems arise. Your Current Medications: Your current home medications have been reviewed. CONTINUE TAKING THE FOLLOWING MEDICATIONS: Antidepressant name unknown*. busPIRone HCl Oral. Cyclobenzaprine HCl Oral. Gabapentin Oral. Melatonin Oral : Tablet 3 mg. ProAir HFA Inhalation : 2 puffs, prn. Tessalon Perles Oral : prn. traZODone HCl Oral. Prescription Medications: albuterol sulfate HFA 90 mcg/actuation aerosol inhaler Inhale 2 puff four times a day as needed for 7 days -- prn wheezing. Dispense 18 gram. Refills: 1. Substitution permitted. Note to Pharmacy - USE Rx DISCOUNT CARD: $45.56, BIN:[id number], PCN:[id number], Group:[id number], ID:[id number]. Pharmacy - [facility] [id number] [facility] [address] ; [place] [address]. . Follow-up: Follow up with your doctor Wednesday even if well. Call for an appointment. Reason for referral: evaluation. Summary of care provided to patient via paper. Understanding of the discharge instructions verbalized by patient. 6 Clinical Report - Physicians/Mid Levels [facility] Emergency Department [address] [place] [address] Phone #: ext- [phone] 04/18/2021 16:46 Patient: JAH ZAMORA Sex: M : 1985 Age: 35y(Electronically signed by Nash Amado MD 04/19/2021 06:33) Name Value Range Interpretation Code Description Data Marlene rce(s) Supporting Document(s) ID Date Data Source [id number] 04/18/2021 05:13:00 PM EDT [facility] Addenda for JAH ZAMORA VisitID: [id number] Date: 11:28pt informed of negative covid test, pt verbalized understanding(Electronically signed by Valerie Donnelly R.N. - 04/21/2021 11:28) Name Value Range Interpretation Code Description Data Marlene rce(s) Supporting Document(s) ID Date Data Source [id number] 04/19/2021 09:36:[address] [facility] [address] [place] [address] PHONE: [phone] FAX: [phone] Name .................. : NOAH TYSON Acct Number.................. : [id number] ROOM. ................. : [facility] MR Number ................... : [id number] Stay type ............. : E/R Discharge Date......... ... : 04/18/21 Admit Date ... ...... : 04/18/21 Admit Phys .................... : COONEYNORM Date of ....... : 1985 Family Phys ................... : UNKNOWN BEVERLY Phone .................. : [phone] Age ................................ : 35 Film# .................. .:[id number] Sex ................................. : M Unsigned transcriptions are preliminary reports and do not represent a medical or legal document CHEST PORTABLE [id number] COMPLETE:04/18/21 19:46 MARCIO [id number] Reason(s): Congestion PORTABLE CHEST SINGLE VIEW 6:41 PM HISTORY: Congestion COMPARISON: 04/11/21 FINDINGS: Mediastinal and hilar structures are normal. Cardiac silhouette is unremarkable. Lungs are clear. No pulmonary edema. No pleural effusions or pneumothorax. IMPRESSION: Normal exam. Electronically Reviewed and Signed By Pastor Dobson MD , 04/19/21 09:36, MANFRED Transcribe Initials: DZ , Transcribe Date: 04/19/21 09:10, Dictation Date: Copy for: EMERGENCY DEPT via modem Copy for: 710 MED REC DISCHARGED Page 1 of 1 Name Value Range Interpretation Code Description Data Marlene rce(s) Supporting Document(s) ID Date Data Source [id number] 04/18/2021 06:22:00 PM [facility] Name Value Range Interpretation Code Description Data Marlene rce(s) Supporting Document(s) SARS coronavirus 2 RNA Not Detected [facility] and reported by [facility]. ID Date Data Source [id number] 04/21/2021 06:20:00 AM EDT [facility] Name Value Range Interpretation Code Description Data Marlene rce(s) Supporting Document(s) SARS-CoV-2, KEVEN Not Detected Not Detected [facility] This nucleic acid amplification test was developed and its performancecharacteristics determined by [facility]. Nucleic acidamplification tests include RT-PCR and TMA. This test has not beenFDA cleared or approved. This test has been authorized by FDA underan Emergency Use Authorization (EUA). This test is only authorizedfor the duration of time the declaration that circumstances existjustifying the authorization of the emergency use of in vitrodiagnostic tests for detection of SARS-CoV-2 virus and/or diagnosisof COVID-19 infection under section 564(b)(1) of the Act, 21 U.S.C.360bbb-3(b) (1), unless the authorization is terminated or revokedsooner.When diagnostic testing is negative, the possibility of a falsenegative result should be considered in the context of a patient'srecent exposures and the presence of clinical signs and symptomsconsistent with COVID- 19. An individual without symptoms of COVID-19and who is not shedding SARS-CoV-2 virus would expect to have anegative (not detected) result in this assay. ID Date Data Source [id number] 04/18/2021 07:09:00 PM EDT [facility] Name Value Range Interpretation Code Description Data Marlene rce(s) Supporting Document(s) CBC W/AUTOMATED DIFF [facility] COMPLETE BLOOD COUNT Leukocytes [#/volume] in Blood by Automated count 14.1 10^3/uL 4.2 - 11.0 H [facility] Erythrocytes [#/volume] in Blood by Automated count 5.58 10^6/uL 4. 50 - 6.30 [facility] Hemoglobin [Mass/volume] in Blood 15.7 g/dL 14.0 - 16.0 [facility] Hematocrit [Volume Fraction] of Blood by Automated count 47.0 % 4 1.0 - 51.0 [facility] Erythrocyte mean corpuscular volume [Entitic volume] by Auto mated count 84.2 fL 80.0 - 94.0 [facility] Erythrocyte mean corpuscular hemoglobin [Entitic mass] by Automated count 28.1 pg 27.0 - 34.0 [facility] Erythrocyte mean corpuscular hemoglobin concentration [Mass/volume] by Automated count 33.4 g/dL 31.0 - 36.0 [facility] Erythrocyte distribution width [Ratio] by Automated count 13.4 % 11.5 - 14.8 [facility] Platelets [#/volume] in Blood by Automated count 275 10^3/uL 150 - 45 0 [facility] Platelet mean volume [Entitic volume] in Blood by Automated count 10.2 fL 7.4 - 10.4 [facility] Neutrophils/100 leukocytes in Blood by Automated count 53.0 % 37. 0 - 80.0 [facility] Lymphocytes/100 leukocytes in Blood by Manual count 26.5 % 25.0 - 40.0 [facility] Monocytes/100 leukocytes in Blood by Automated count 10.0 % 3.0 - 8.0 H [facility] Eosinophils/100 leukocytes in Blood by Automated count 9.4 % 0.0 - 7.0 H [facility] Basophils/100 leukocytes in Blood by Automated count 0.5 % 0.0 - 2.0 [facility] %IG 0.6 % 0.0 - 0.0 H [facility] %NRBC 0.0 % 0.0 - 0.0 [facility] Neutrophils [#/volume] in Blood by Automated count 7.45 10^3/uL 2.00 - 6.90 H [facility] Lymphocytes [#/volume] in Blood by Automated count 3.73 10^3/uL 0.60 - 3.40 H [facility] Monocytes [#/volume] in Blood by Automated count 1.41 10^3/uL 0.00 - 0.90 H [facility] Eosinophils [#/volume] in Blood by Automated count 1.32 10^3/uL 0.00 - 0.70 H [facility] Basophils [#/volume] in Blood by Automated count 0.07 10^3/uL 0.00 - 0.20 [facility] #IG 0.09 10^3/uL 0.00 - 0.10 [facility] #NRBC 0.00 10^3/uL 0.00 - 0.00 [facility] MANUAL DIFF SEE BELOW [facility] ital Segmented neutrophils/100 leukocytes in Blood by Manual count 63 % 37 - 80 [facility] %LYMPH 20 % 25 - 40 L [facility] %MONO 8 % 3 - 8 [facility] %EOS 9 % 0 - 7 H [facility] RBC MORPH SEE BELOW [facility] { SICKLE CELL (NORMAL: NONE SEEN ) Smudge cells [Presence] in Blood by Light microscopy 1+ NASH L: NONE SEEN A [facility] Platelet adequacy [Presence] in Blood by Light microscopy NORMAL NORMAL: NORMAL [facility] COMMENT: ID Date Data Source [id number] 04/18/2021 07:00:00 PM EDT [facility] Name Value Range Interpretation Code Description Data Marlene rce(s) Supporting Document(s) Influenza virus A Ag [Presence] in Nasopharynx by Immunoassa y NEGATIVE NORMAL: NEGATIVE [facility] Influenza virus B Ag [Presence] in Nasopharynx by Immunoassa y NEGATIVE NORMAL: NEGATIVE [facility] NEGATIVENEGATIVE PROCEDURAL CO NTROL VALID KIT LOT # _[id number] 04/18/21.MRW. KIT EXP DATE 02.16.22 04/18/21.MRW.The Influenza A & B assay is a rapid molecular in vitro diagnostic testutilizing an isothermal nucleic acid amplification technology for thequalitative detection of influenza A and B viral RNA.Negative results do not preclude influenza virus infection and should not beused as the sole basis for diagnosis, treatment or other patient managementdecisions. ID Date Data Source [id number] 04/18/2021 06:53:00 PM EDT [facility] Value Range Interpretation Code Description Data Marlene rce(s) Supporting Document(s) RSV ANTIGEN NEGATIVE NORMAL: NEGATIVE [facility] RSV ANTIGEN REENTER NEGATIVE NORMAL: NEGATIVE [facility] { PROCEDURAL CONTROL VALID ){ KIT LOT # [id number] ){ KIT EXP DATE 10.01.21 ) ID Date Data Source [id number] 04/18/2021 06:51:00 PM EDT [facility] Name Value Range Interpretation Code Description Data Marlene rce(s) Supporting Document(s) COMPREHENSIVE METABOLIC PANEL [facility] COMPREHENSIVE METABOLIC PANEL Sodium [Moles/volume] in Serum or Plasma 139 mEq/L 134 - 153 [facility] Potassium [Moles/volume] in Serum or Plasma 4.2 mEq/L 3.6 - 5.0 [facility] Chloride [Moles/volume] in Serum or Plasma 105 mEq/L 98 - 107 [facility] Carbon dioxide, total [Moles/volume] in Serum or Plasma 24 MEQ/L 22 - 30 [facility] Glucose [Mass/volume] in Serum or Plasma 136 MG/DL 70 - 99 [facility] BUN 11 MG/DL 7 - 21 [facility] al Creatinine [Mass/volume] in Serum or Plasma 1.1 MG/DL 0.7 - 1.5 [facility] BUN/CREAT 10 8 - 27 [facility] Protein [Mass/volume] in Serum or Plasma 7.1 G/DL 6.3 - 8.2 [facility] Albumin [Mass/volume] in Serum or Plasma 4.5 G/DL 3.9 - 5.0 [facility] Globulin [Mass/volume] in Serum by calculation 2.6 GM/DL 2.4 - 3.2 [facility] A/G RATIO 1.7 0.8 - 2.0 [facility] Calcium [Mass/volume] in Serum or Plasma 9.0 MG/DL 8.4 - 10.2 [facility] Bilirubin.total [Mass/volume] in Serum or Plasma <0.7 MG/DL 0.2 - 1.3 [facility] Alkaline phosphatase [Enzymatic activity/volume] in Serum or Plasma 55 U/L 38 - 126 [facility] Aspartate aminotransferase [Enzymatic activity/volume] in Serum or Plasma 13 U/L 5 - 40 [facility] Alanine aminotransferase [Enzymatic activity/volume] in Seru m or Plasma 20 U/L 7 - 56 [facility] Anion gap 3 in Serum or Plasma 10.0 mmol/L 8.0 - 16.0 [facility] AGE 35 yrs [facility] al NON-AA GFR >60 mL/min [facility] ital AFR AMER GFR >60 mL/min [facility] Ho spital Male GFR In terprentation 20-49 yrs >60 mL/min Normal 50-59 yrs >56 mL/min Normal 60-69 yrs >49 mL/min Normal 70-79yrs >42 mL/min Normal 80 and above >35 mL/min Normal Female GFR Interpretation 20-39 yrs >60 mL/min Normal 40-49 yrs >58 mL/min Normal 50-59 yrs >51 mL/min Normal 60-69 yrs >45 mL/min Normal 70-79 yrs >39 mL/min Normal 80 and above >32 mL/min Normal ID Date Data Source [id number] 04/18/2021 06:51:00 PM EDT [facility] Name Value Range Interpretation Code Description Data Marlene rce(s) Supporting Document(s) Magnesium [Mass/volume] in Serum or Plasma 2.0 MG/DL 1.7 - 2.2 [facility] ID Date Data Source [id number] 04/18/2021 06:42:00 PM EDT [facility] Name Value Range Interpretation Code Description Data Marlene rce(s) Supporting Document(s) Lactate [Moles/volume] in Serum or Plasma 2.5 MMOL/L 0.2 - 2.2 H [facility] ID Date Data Source [id number] 04/11/2021 11:48:00 AM EDT [facility] 1 OrderSheet [facility] Emergency Department [address] [place] [address] Phone #: ext- [phone] 04/11/2021 11:32 Patient: JAH ZAMORA Sex: M : 1985 Age: 35yWEIGHT:95.2 kg (S) HEIGHT:71 inches (S) BMI:29.3ALLERGIES: NoneCHIEF COMPLAINT: chest pain, dyspneaDIAGNOSIS: Severe acute respiratory syndrome coronavirusLAB ORDERSOrder Description Priority Entered Acknowledged InitialedCBC w Diff STAT 12:21 12:27 Josué STEPHEN;CMP STAT 12:21 04/11/2021 12:27 Josué Peng RN PA;Troponin-T STAT 12:21 04/11/2021 12:27 Josué STEPHEN;Influenza Nasal A B STAT 12:21 04/11/2021 12:27 Josué Peng RN PA;Rapid Strep Screen STAT 12:21 04/11/2021 12:27 Josué Peng RN PA;CORONAVIRUS STAT 13:51 04/11/2021 13:53 TerryCOVID-19 Bry Peng RN(Symptomatic as PA;Defined by CDC)(04/10/2021) (FirstTest) (NotHospitalized) (Not) (NotResident inCongregate CareSetting) (NotEmployed inHealthcare Setting)DIAGNOSTIC STUDY ORD ERSOrder Description Priority Entered Acknowledged InitialedChest 2 View STAT 12:21 04/11/2021 12:27 Josué 2 OrderSheet [facility] Emergency Department [address] [place] [address] Phone #: ext- [phone] 04/11/2021 11:32 Patient: JAH ZAMORA Sex: M : 1985 Age: 35y(Oxygen?(No)) Bry Peng RN PA; Reason for Study: Chest PainMEDICATION/IV/DRIP/FLUID ORDERSOrder Description Priority Entered Acknowledged InitialedDuoNeb 3 mL X2 12:21 04/11/2021 12:42 TerryDoses (Filtered): 6 Bry Peng RNmL (3 mL X2 PA;Doses)Dexamethasone 12:21 04/11/2021 12:43 TerryPO 10mg Bry Peng RN PA;Toradol IM 60 mg 12:21 04/11/2021 12:43 Josué Peng RN PA;GENERAL ORDERSOrder Description Priority Entered Acknowledged InitialedEKG 12:21 04/11/2021 12:27 Josué Peng RN PA;Blood Pressure 12:04/11/2021 12:27 Jackonityefri STEPHEN;[employer] Architect 12:04/11/2021 12:27 Josué(continuous) Bry Peng RN PA;Pulse oximeter 12:04/11/2021 12:27 Josué(Continuous) Bry STEPHEN;Vitals 12:04/11/2021 12:27 Josué STEPHEN;[Electronically signed by Josué Peng RN (14:30 04/11/2021)][Electronically signed by Bry Joseph (21:32 04/11/2021)][Electronically locked by Josué Peng RN (14:30 04/11/2021)] Name Value Range Interpretation Code Description Data Marlene rce(s) Supporting Document(s) ID Date Data Source [id number] 04/11/2021 11:48:00 AM EDT [facility] 1 Medication Reconciliation Report [facility] Emergency Department [address] [place] [address] Phone #: ext- [phone] 04/11/2021 11:32 [id number] Sex[facility] M : 1985 Age: 35yWeight: 95.2 kgHeight/Length: 71 in.BMI: 29.3ALLERGIES: NoneThe patient's Home Medications are listed below:CONTINUE TAKING THE FOLLOWING MEDICATIONS: Antidepressant name unknown busPIRone HCl Oral, 2x a day Cyclobenzaprine HCl Oral 10 mg Gabapentin Oral 300 mg, daily, at bedtime Melatonin Oral (3 mg) 1 tablet traZODone HCl Oral 50 mgThe source(s) of the original Home Medication information:Not obtained.The following Medications were given to the patient in the Emergency Department:Duoneb [Neb Tx] Neb TX 2 unit dose, administered: 12:42 04/11/2021examethasone [PO] PO 10 mg, administered: 12:42 04/11/2021Toradol [IM] IM 60 mg, administered: 12:43 04/11/2021The following Medications were prescribed to the patient:Medrol (Keagan) 4 mg tablets in a dose pack Take 1 tablet as directed for 6 days -- Dispense 21 tablet.Refills: 0. Substitution permitted.Pharmacy - [facility] [phone] [facility] [address] ; [place] [address]. FaxNumber: [phone]. 2 Medication Reconciliation Report [facility] Emergency Department [address] [place] [address] Phone #: ext- [phone] 04/11/2021 11:32 Patient: JAH ZAMORA Sex: M : 1985 Age: 35yazithromycin 250 mg tablet -- Take 2 tablets on the first day then one tablet daily for 4 days, totalduration is 5 days. Dispense 6 tablet. Refills: 0. Substitution permitted.Pharmacy - [facility] [id number] [facility] [address] ; [place] [address]. FaxNumber: .albuterol sulfate HFA 90 mcg/actuation aerosol inhaler Inhale 2 puff four times a day -- Dispense 8.5gram. Refills: 0. Substitution permitted.Pharmacy - [facility] [phone] [facility] [address] ; [place] [address]. Phone: .benzonatate 200 mg capsule Take 1 capsule three times a day as needed for 10 days -- Dispense 30capsule. Refills: 0. Substitution permitted.Pharmacy - [facility] [phone] [facility] [address] ; [place] [address]. . -- ZAFAR De Jesus Name Value Range Interpretation Code Description Data Marlene rce(s) Supporting Document(s) ID Date Data Source [id number] 04/11/2021 11:48:00 AM EDT [place] [id number] Medication Administration Record [facility] Emergency Department [address] [place] [address] Phone #: ext- [phone] 04/11/2021 11:32 Patient: JAH ZAMORA Sex: M : 1985 Age: 35yWeight: 95.2 kgHeight/Length: 71 inBMI: 29.3ALLERGIES: None Date/Time Medication Administered Medication OrderedGiven DUONEB [NEB TX] DuoNeb 3 mL X2 Doses (Filtered):12:42 04/11/2021 Dose: 2 unit dose Nebulizer Neb TX 6 mL (3 mL X2 Doses)Josué Peng RN----Stop13:16 04/11/2021Pretty Wilson DEXAMETHASONE [PO] Dexamethasone PO 10mg12:42 04/11/2021 Dose: 10 mg Solution/Elixir Pretty Stallings TORADOL [IM] (KETOROLAC Toradol IM 60 mg12:43 04/11/2021 TROMETHAMINE)Josué Peng RN Dose: 60 mg IM Name Value Range Interpretation Code Description Data Marlene rce(s) Supporting Document(s) ID Date Data Source [id number] 04/11/2021 11:48:00 AM EDT [facility] 1 General Instructions [facility] Emergency Department [address] [place] [address] Phone #: ext- [phone] 04/11/2021 11:32 [id number] Sex: M : 1985 Age: 35y Coronavirus COVID-19 presumed (confirmatory testing pending) with bronchitis.INSTRUCTIONS Do not work (3-5 days until Covid Test is complete). Warnings: Further evaluation is necessary. It is very important to follow up with a healthcare provider. GENERAL WARNINGS: Return or contact your physician immediately if your condition worsens or changes unexpectedly, if not improving as expected, or if other problems arise. SPECIFICALLY, return if there is worse lanie of the chest pain or difficulty breathing. Your Current Medications: Your current home medications have been reviewed. CONTINUE TAKING THE FOLLOWING MEDICATIONS: Antidepressant name unknown*. busPIRone HCl Oral : 2x a day. Cyclobenzaprine HCl Oral : 10 mg. Gabapentin Oral : 300 mg daily, at bedtime. Melatonin Oral : Tablet 3 mg, 1 tablet. traZODone HCl Oral : 50 mg. Prescription Medications: Medrol (Keagan) 4 mg tablets in a dose pack Take 1 tablet as directed for 6 days -- Dispense 21 tablet. Refills: 0. Substitution permitted. Pharmacy - [facility] [address] [facility] [address] [address] ; [place] [address]. . azithromycin 250 mg tablet -- Take 2 tablets on the first day then one tablet daily for 4 days, total duration is 5 days. Dispense 6 tablet. Refills: 0. Substitution permitted. [facility] [address] [facility] [address] [address] ; [place] [address]. . albuterol sulfate HFA 90 mcg/actuation aerosol inhaler Inhale 2 puff four times a day -- Dispense 8.5 gram. Refills: 0. Substitution permitted. [facility] [phone] [facility] [address] ; [place] [address]. . benzonatate 200 mg capsule Take 1 capsule three times a day as needed for 10 days -- Dispense 30 capsule. Refills: 0. Substitution permitted. 2 General Instructions [facility] Emergency Department [address] [facility], [place] [address] Phone #: ext- [phone] 04/11/2021 11:32 Patient: JAH ZAMORA Sex: M : 1985 Age: 35y Pharmacy - [facility] [id number] [facility] [address] ; [place] [address]. . Follow-up: Follow up with your doctor as needed. Reason for referral: evaluation and treatment. Summary of care provided to patient. Understanding of the discharge instructions verbalized by patient. ADDITIONAL INFORMATIONUnderstanding Coronavirus Disease 2019 (COVID-19)Coronavirus disease 2019 (COVID-19) is a virus that causes a respiratory illness. It is caused by acoronavirus called 2019 novel coronavirus (2019-nCoV). There are many types of coronavirus.Coronaviruses are a very common cause of bronchitis. They may sometimes cause lung infection(pneumonia). Symptoms can range from mild to severe respiratory illness. These viruses are alsofound in some animals. COVID- 19 was first found in people in [facility], in late 2019. In 2020,several cases of COVID-19 have been confirmed in the [place] COVID-19 is a rapidly- emerginginfectious disease. This means that scientists are actively researching it. There are informationupdates regularly.Public health officials are working to find the source. How the virus spreads is not yet fullyunderstood, but it seems to spread and infect people fairly easily. Some people who have beeninfected in an area may be unsure how or where they became infected. The virus may be spreadthrough droplets of fluid that a person coughs or sneezes into the air. It may be spread if you touch asurface with virus on it, such as a handle or object, and then touch your eyes, nose, or mouth.For the latest information, visit the CDC website at www.cdc.gov/coronavirus/2019-ncov.What are the symptoms of COVID-19?Some people have no symptoms or mild symptoms. Symptoms may appear 2 to 14 days aftercontact with the virus. Symptoms can include: Fever Coughing Trouble breathingWhat are possible complications from COVID-19?In many cases, this virus can cause infection (pneumonia) in both lungs. In some cases, this can 3 General Instructions [facility] Emergency Department [address] [place] [address] Phone #: ext- [phone] 04/11/2021 11:32 Patient: JAH ZAMORA Sex: M : 1985 Age: 35ycause .How is COVID-19 diagnosed?Your healthcare provider will ask about your symptoms. He or she will also ask about your recenttravel and contact with sick people. If your healthcare provider thinks you may have COVID-19, ryan wylie will work closely with your local health department and the CDC on testing. Follow all instructionsfrom your healthcare provider. COVID-19 is diagnosed by: Nasal and throat swab. A cotton-tipped swab is wiped inside your nose or throat. This is done to check for viruses in your nasal mucus. Sputum culture. A small sample of mucus coughed from your lungs (sputum) is collected if you have a cough. It is checked for the virus.How is COVID-19 treated?There is currently no medicine to treat the virus. Treatment is done to help your body while it fightsthe virus. This is known as supportive care. Supportive care may include: Pain medicine. These include acetaminophen and ibuprofen. They are used to help ease pain and reduce fever. Bed rest. This helps your body fight the illness.For severe illness, you may need to stay in the hospital. Care during severe illness may include: IV (intravenous) fluids.These are given through a vein to help keep your body hydrated. Oxygen. Supplemental oxygen or ventilation with a breathing machine (ventilator) may be given. This is done so you get enough oxygen in your body.Are you at risk for COVID-19?You are at risk for infection if you've been to a place where people have been sick with this virus or ifthere are people with COVID-19 in your area. You are at risk if you: Recently traveled to an area with a COVID-19 outbreak Had contact with a sick person who recently traveled to an area with a COVID-19 outbreak Had contact with a person who was diagnosed with or who may have COVID-19How can COVID-19 be prevented?There is no vaccine yet. The best prevention is to not have contact with the virus. The CDC advisesthat people should not travel to areas where there are COVID-19 outbreaks right now for any reason 4 General Instructions [facility] Emergency Department [address] [place] [address] Phone #: ext- [phone] 04/11/2021 11:32 Patient: JAH ZAMORA Sex: M : 1985 Age: 35ythat is not urgent. For the most current CDC travel advisories, visit the CDC website atwww.cdc.gov/coronavirus/2019-ncov/travelers.To help prevent spreading the infection, wash your hands often, or use an alcohol-based hand fork lift mechanic.The CDC advises that you shouldn't wear a face mask if you are not sick.To protect yourself from COVID-19: Wash your hands often with soap and clean, running water for at least 20 seconds. If you don't have access to soap and water, use an alcohol-based hand fork lift mechanic often. Make sure it has at least 60% alcohol. Don't touch your eyes, nose, or mouth unless you have clean hands. Don't have contact with people who are sick. Follow local instructions about being in public. For example, you may be told to not use public transport for a period of time. 5 General Instructions [facility] Emergency Department [address] [place] [address] Phone #: ext- [phone] 04/11/2021 11:32 Patient: JAH ZAMORA Sex: M : 1985 Age: 35y Experts don't know if animals spread 2019-nCoV. But it's always a good idea to wash your hands after touching any animals. Don't touch animals that may be sick. Don't share eating or drinking tools with sick people. Don't kiss someone who is sick. Clean surfaces often with disinfectant.If you were in an area with COVID-19 in the last 14 days: Call your healthcare provider. He or she can talk with local health staff to see what action may be needed. Follow all instructions from your provider. Take your temperature every morning and evening for at least 14 days. This is to check for fever. Keep a record of the readings. Keep watch for symptoms of the virus. Tell your provider right away if you have symptoms. Stay home if you are sick for any reason.If you were in an area with COVID-19 and have a fever or other symptoms: Stay home. Don't panic. Keep in mind that other illnesses can cause similar symptoms. Stay away from work, school, and public places. Limit physical contact with family members. Don't kiss anyone or share eating or drinking utensils. Clean surfaces you touch with disinfectant. This is to help prevent the virus from spreading. Cough or sneeze into a tissue, then throw away the tissue in the trash. Or cough or snee ze into the bend of your elbow. Wear a face mask. Call your healthcare provider. Explain that you have been exposed to COVID-19 and have symptoms. Do this before going to any hospital. Wait for instructions. Keep in mind that healthcare staff may wear protective equipment such as masks, gowns, gloves, and eye protection. You may be put in a separate room. This is to prevent the possible virus from spreading. Tell the healthcare staff about recent travel. This includes local travel on public transport. Staff may need to find other people you have been in contact with. Follow all instructions the healthcare staff give you. 6 General Instructions [facility] Emergency Department [address] [place] [address] Phone #: ext- [phone] 04/11/2021 11:32 Patient: JAH ZAMORA Sex: M : 1985 Age: 35yIf you have been diagnosed with COVID-19 Stay home. Don't leave your home unless you need to get medical care. Follow all instructions from your healthcare provider. Call your healthcare provider's office before going. They can prepare and give you instructions. This will help prevent the virus from spreading. Don't go to work, school, or public areas. Don't use public transport or taxis. Stay away from other people in your home. Wear a face mask. This is to protect other people from your germs. They do not need to wear face masks. Don't share household items or food. Cover your face with a tissue when you cough or sneeze. Throw the tissue away. Then wash your hands. Wash your hands often.Caregivers should: Follow all instructions from healthcare staff. Wear protective clothing as advised. Make sure the sick person wears a mask. Wash hands often. Keep track of the sick person's symptoms. Clean surfaces, fabrics, and laundry thoroughly. Keep other people away from the sick person.When to call your healthcare providerCall your healthcare provider: If you've recently traveled and have symptoms If you have been diagnosed with COVID-19 and your symptoms are worse [phone] [employer]. [address] [place] [address], [place] [address]. All rights reserved. 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 Always follow your healthcare professional's instructions. You have been given the following additional information: Coronavirus Disease 2019 (COVID-19) Do not work (3-5 days until Covid Test is complete).(Electronically signed by ZAFAR De Jesus 04/11/2021 21:32) Name Value Range Interpretation Code Description Data Marlene rce(s) Supporting Document(s) ID Date Data Source [id number] 04/11/2021 11:48:00 AM EDT [facility] 1 Clinical Report - Nurses [facility] Emergency Department [address] [place] [address] Phone #: ext- [phone] 04/11/2021 11:32 Patient: JAH ZAMORA Sex: M : 1985 Age: 35yTRIAGEArrived by private vehicle. Historian: patient. 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 Acuity: LEVEL 4.Chief Complaint: SORE THROAT and (SOB).11:57 04/11/21.This started last night. No fever, trouble handling secretions, mouth sores, ear pain or sinus pain. Noenlarged lymph nodes or facial pain. No toothache or swollen jaw.Treatment SUPERVISORY TRAINING SPECIALIST:None.SEPSIS SCREEN: SIRS SCREEN NEGATIVE. SEPSIS SCREEN NEGATIVE. No suspected or confirmedsigns of infection present. (11:57 04/11/2021). --11:57 04/11/21 Josué Peng RN11:50 04/11/21. BP: 129/87 (regular adult cuff) taken on the left arm, via an automated monitor, whilesitting. MAP: 101. HR: 79. RR: 18. O2 saturation: 95% on room air. Temp: 98.5 F (oral). Pain level now:12/28. --11:57 04/11/21 Josué Peng RN.Weight: 95.2 kg stated. Height/Length: 71 inches Per Patient. BMI: 29.3. --11:50 04/11/21 Josué Peng RN.MedicationsCyclobenzaprine HCl Oral 10 mg. --11:53 04/11/21 Josué Peng RN traZODone HCl Oral 50 mg. --11:53 04/11/21 Josué Peng RN Melatonin Oral (Tablet 3 mg) 1 tablet. --11:53 04/11/21 Josué Peng RN Gabapentin Oral 300 mg, daily at bedtime. --11:54 04/11/21 Josué Peng RN busPIRone HCl Oral, 2x a day. --11:54 04/11/21 Josué Peng RN Antidepressant name unknown. --11:54 04/11/21 Josué Peng RN.AllergiesNone. --11:52 04/11/21 Josué Peng RN.PROBLEMS:Herpes Zoster.Arthritis.Anxiety Reaction. 2 Clinical Report - Nurses [facility] Emergency Department [address] [place] [address] Phone #: ext- [phone] 04/11/2021 11:32 Patient: JAH ZAMORA [facility]#: [id number] Sex: M : 1985 Age: 35y Depression. --11:55 04/11/21 Josué Peng RN. ADDITIONAL SURGERIES: None. --11:55 04/11/21 Josué Peng RN. History 11:57 04/11/21. PAST MEDICAL HX: No history of dental caries. No history of strep throat, mononucleosis or abscess. SOCIAL HX: Smoker- current status unknown (06/24 ppd). No alcohol use or drug use. He was offered HIV testing but declined and hepatitis C testing but declined. He has not traveled outside the [place] Infectious disease exposure: No infectious disease exposure. SELF HARM ASSESSMENT: Self harm assessment was performed. The patient answered "no" to the question(s) "Have you recently felt down, depressed, or hopeless?", "Do you have thoughts of harming or killing yourself?", "Do you have a plan for harming or killing yourself?", "Have you recently had thoughts about harming or killing others?", "Do you have any dangerous items in your possession?", "Have you noticed less interest or pleasure in doing things?", "Are you here because you tried to hurt yourself?" and "Have you ever tried to hurt yourself before today?". ABUSE ASSESSMENT: Abuse history: reports abuse. (no). Abuse assessment. No suspicion of abuse. NUTRITIONAL RISK ASSESSMENT: The nutritional risk assessment revealed no deficiencies. FUNCTIONAL ASSESSMENT: Functional assessment: no impairments noted. LEARNING NEEDS ASSESSMENT: The learning needs assessment revealed no barriers. FALL RISK ASSESSMENT: Fall risk assessment completed. No risk factors identified. SKIN INTEGRITY ASSESSMENT: Skin integrity risk assessment completed. No skin integrity risk identified. --11:57 04/11/21 Josué Peng RN. Interventions 11:57 04/11/21. Identification band on patient. To room. --11:57 04/11/21 Josué Peng RN.PHYSICAL ASSESSMENTAmbulatory to room.GENERAL / NEURO / PSYCH: Alert. Oriented X 4. Appears in no acute distress.HEENT: Pupils equal, round and reactive to light. Pharynx within normal limits. Voice within normallimits.RESPIRATORY: Nonproductive cough. Decreased breath sounds right upper lung anteriorly; abnormalbreath sounds left upper lung anteriorly.CVS: Capillary refill less than 2 seconds. 3 Clinical Report - Nurses [facility] Emergency Department [address] [place] [address] Phone #: ext- [phone] 04/11/2021 11:32 Patient: JAH ZAMORA Sex: M : 1985 Age: 35y SKIN: Skin is warm and dry. --11:58 04/11/21 Josué Peng RN.NURSING PROGRESS NOTESPatient gowned. Head of bed elevated 75 degrees. Two patient identifiers checked. Call light placed inreach. Bed placed in lowest position. Brakes of bed on. Patient ready for evaluation- chart flagged.--11:58 04/11/21 Josué Peng RN 12:05 04/11/21. BP: 133/84. HR: 74. RR: 16. O2 saturation: 94%. --12:06 04/11/21 [facility] 12:42 04/11/2021 Duoneb Neb TX Nebulizer 2 unit dose given. Given by the nurse. Allergies verified and confirmed 5 rights. Information reviewed with patient. --12:42 04/11/21 Josué Peng RN 12:42 04/11/2021 Dexamethasone PO Solution/Elixir 10 mg given. Allergies verified and confirmed 5 rights. Information reviewed with patient. --12:43 04/11/21 Josué Peng RN 12:43 04/11/2021 Toradol (Ketorolac Tromet hamine) IM 60 mg given. Given in the left deltoid. Allergies verified and confirmed 5 rights. --12:43 04/11/21 Josué Peng RN Cardiac rhythm: normal sinus rhythm; (1230). EKG time: (12:30 04/11/2021). EKG was performed by a tech and shown to the PA. nsr. Checked patient name and birthdate. Blood samples drawn by tech. (1230). Patient ID band checked for patient name and birthdate: patient confirmed. Flu swab obtained by RN via nasal swab. Labeled in the presence of the patient and sent to lab (1235). Patient ID band checked for patient name and birthdate: patient confirmed. Throat swab obtained by nurse for rapid strep; labeled in the presence of the patient and sent to lab (1235). --12:44 04/11/21 Josué Peng RN 13:08 04/11/21. BP: 137/83. HR: 98. RR: 18. O2 saturation: 100%. --13:09 04/11/21 [facility] Patient transported to radiology by wheelchair with mask and hearing aid technician. (1320). --13:21 04/11/21 Josué Peng RN 13:16 04/11/2021 Donavon MCCARTHY discontinued upon: receiving physician order. --13:21 04/11/21 Josué Peng RN Patient returned from radiology by wheelchair with mask and hearing aid technician. (1328). --13:27 04/11/21 Josué Peng RN.DISPOSITION / DISCHARGE 14:05 04/11/21. BP: 133/85. HR: 103. RR: 16. O2 saturation: 99%. Temp: 98.7 F. Pain level now 7/10. --14:06 04/11/21 [facility] 13:45 04/11/2021 Toradol IM Response: pain is improving. Symptoms have improved the patient feels better. Physician assistant professor of drama notified. --14:20 04/11/21 Josué Peng RN 4 Clinical Report - Nurses [facility] Emergency Department [address] [place] [address] Phone #: ext- [phone] 04/11/2021 11:32 Patient: JAH ZAMORA Sex: M : 1985 Age: 35y 14:09 04/11/2021 Dexamethasone PO Response: no adverse reaction. Physician assistant professor of drama notified. --14:19 04/11/21 Josué Peng RN 14:15 04/11/21. Departu re time: 14:15 04/11/2021. Condition at departure: improved. No learning barriers present. Discharge instructions provided and reviewed with the patient. Reviewed medication(s) side effects, precautions, dosing and course information. Prescription(s) sent electronically to pharmacy. Reviewed rest instructions. Reviewed referrals. Provided to follow-up provider. Patient verbalized understanding. Written instructions provided in Niuean. 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 He was discharged home. He left ambulatory and via private vehicle. Patient driving. --14:19 04/11/21 Josué molina RN.Locked/Released at 04/11/2021 14:30 by Josué Peng RN Name Value Range Interpretation Code Description Data Marlene rce(s) Supporting Document(s) ID Date Data Source [id number] 0001 04/11/2021 11:48:00 AM EDT [facility] 1 Clinical Report - Physicians/Mid Levels [facility] Emergency Department [address] [place] [address] Phone #: ext- [phone] 04/11/2021 11:32 Patient: JAH ZAMORA Sex: M : 1985 Age: 35y Time Seen: 12:15 04/11/2021. Arrived- By private vehicle. Historian- patient.HISTORY OF PRESENT ILLNESS Chief Complaint: DYSPNEA and CHEST PAIN Cough, Sore Throat. This started last night last night started with sore throat and chest congestion with pain in both lower lungs and both upper lungs with deep breathing, pt works [employer] [place], no fever, pt coughing up clear to yellow phlegm and is still present. It was abrupt in onset and has been constant. The dyspnea is described as moderate. The patient has had sputum production, a cough, chest discomfort, dyspnea on exertion and chest pain. He has experienced sweating episodes. No fever, wheezing, chills, calf pain or foot swelling. No dizziness, numbness or palpitations. Similar symptoms previously. None. Recent medical care: The patient was seen recently at another facility in a clinic.REVIEW OF SYSTEMSThe patient has had a sore throat but not had weight loss. No muscle aches, eye irritation, nasaldischarge, nausea or vomiting. No abdominal pain, diarrhea, black stools, bloody stools or headache.No fainting episodes, difficulty with urination, skin rash, enlarged lymph nodes or joint pain.PAST HISTORYProblems:Herpes Zoster.Arthritis.Anxiety Reaction.Depression. Additional Surgeries: None. Medications: Antidepressant name unknown. busPIRone HCl Oral, 2x a day. Gabapentin Oral 300 mg, daily at bedtime. Melatonin Oral (Tablet 3 mg) 1 tablet. traZODone HCl Oral 50 mg. Cyclobenzaprine HCl Oral 10 mg. Allergies: None. 2 Clinical Report - Physicians/Mid Levels [facility] Emergency Department [address] [place] [address] Phone #: ext- [phone] 04/11/2021 11:32 Patient: JAH ZAMORA Sex: M : 1985 Age: 35ySOCIAL HISTORYLight tobacco smoker (cigarette)- less than 1/2 a pack per day. No alcohol use or drug use.PHYSICAL EXAMVital Signs: 04/11/2021 12:06 BP: 133/84. MAP: 100. HR: 74. RR: 16. O2 saturation: 94%. Have beenreviewed as normal. Oxygen saturation normal.Appearance: Alert. No acute distress.Eyes: Pupils equal, round and reactive to light. Eyes normal inspection.ENT: Ears normal. Nose normal. Pharynx normal.Neck: Normal inspection.CVS: Normal heart rate and rhythm. Heart sounds normal.Respiratory: No respiratory distress. Breath sounds normal.Abdomen: Soft and nontender. No organomegaly.Back: Normal inspection.Skin: Skin warm and dry. Normal skin color. No rash. Normal skin turgor.Extremities: Extremities exhibit normal ROM.Neuro: Oriented X 3.LABS, X- RAYS, AND EKGChest X-ray: No acute disease. Views: PA and lateral. The X-rays were interpreted by the radiologistand contemporaneously by me. Interpretation time: 13:49 04/11/2021.Laboratory Tests: Laboratory tests have been ordered, with results reviewed and considered in themedical decision making process. CBC w Diff: (CHEN: 04/11/2021 12:42) ( MsgRcvd 04/11/2021 12:57) Final results Test Result Flag Units (Reference) CBC W/AUTOMATED DIFF COMPLETE BLOOD COUNT WBC 8.9 10/uL (4.2 - 11.0) RBC 5.50 10/uL (4.50 - 6.30) HEMOGLOBIN 15.3 g/dL (14.0 - 16.0) HEMATOCRIT 45.6 % (41.0 - 51.0) MCV 82.9 fL (80.0 - 94.0) MCH 27.8 pg (27.0 - 34.0) MCHC 33.6 g/dL (31.0 - 36.0) RDW 13.2 % (11.5 - 14.8) PLATELETS 254 10/uL (150 - 450) MPV 10.4 fL (7.4 - 10.4) NEUT 33.4 L % (37.0 - 80.0) LYMPH 43.1 H % (25.0 - 40.0) MONO 10.8 H % (3.0 - 8.0) EOS 12.0 H % (0.0 - 7.0) BASO 0.5 % (0.0 - 2.0) %IG 0.2 H % (0.0 - 0.0) %NRBC 0.0 % (0.0 - 0.0) #NEUT 2.97 10/uL (2.00 - 6.90) #LYMPH 3.82 H 1 0/uL (0.60 - 3.40) #MONO 0.96 H 10/uL (0.00 - 0.90) #EOS 1.06 H 10/uL (0.00 - 0.70) #BASO 0.04 10/uL (0.00 - 0.20) #IG 0.02 10/uL (0.00 - 0.10) #NRBC 0.00 10/uL (0.00 - 0.00) 3 Clinical Report - Physicians/Mid Levels [facility] Emergency Department [address] [place] [address] Phone #: ext- [phone] 04/11/2021 11:32 Patient: JAH ZAMORA Sex: M : 1985 Age: 35y MANUAL DIFF NOT INDICATED RBC MORPH NOT INDICATEDCMP: (CHEN: 04/11/2021 12:42) ( MsgRcvd 04/11/2021 13:29) Final results Test Result Flag Units (Reference) COMPREHENSIVE METABOLIC PANEL COMPREHENSIVE METABOLIC PANEL SODIUM 142 mEq/L (134 - 153) POTASSIUM 4.4 mEq/L (3.6 - 5.0) CHLORIDE 106 mEq/L (98 - 107) CO2 25 MEQ/L (22 - 30) GLUCOSE 96 MG/DL (70 - 99) BUN 17 MG/DL (7 - 21) CREATININE 1.4 MG/DL (0.7 - 1.5) BUN/CREAT 12 (8 - 27) TOTAL PROTEIN 7.1 G/DL (6.3 - 8.2) ALBUMIN 4.9 G/DL (3.9 - 5.0) GLOBULIN 2.2 L GM/DL (2.4 - 3.2) A/G RATIO 2.2 H (0.8 - 2.0) CALCIUM 10.0 MG/DL (8.4 - 10.2) TOTAL BILI <0.7 MG/DL (0.2 - 1.3) ALKALINE PHOS 52 U/L (38 - 126) SGOT/AST 14 U/L (5 - 40) SGPT/ALT 15 U/L (7 - 56) ANION GAP 11.0 mmol/L (8.0 - 16.0) AGE 35 yrs NON-AA GFR >60 mL/min AFR AMER GFR >60 mL/min Male GFR Interprentation 20-49 yrs >60 mL/min [place]29-16 yrs >56 mL/min Normal 60-69 yrs >49 mL/min Normal 70-79yrs>42 mL/min Normal 80 and above >35 mL/min Normal Female GFRInterpretation 20-39 yrs >60 mL/min Normal 40-49 yrs >58 mL/minNormal 50-59 yrs >51 mL/min Normal 60-69 yrs >45 mL/min Lwhgur07-96 yrs >39 mL/min Normal 80 and above >32 mL/min NormalTroponin-T: (CHEN: 04/11/2021 12:42) ( [facility] 04/11/2021 13:29) Final results Test Result Flag Units (Reference) TROPONIN T <0.01 NG/ML (0.00 - 0.10) TROPONIN T0.1 ng/ml Recommended as the clinical threshold value forTroponin T.Influenza Nasal A B: (CHEN: 04/11/2021 12:42) ( [facility] 04/11/2021 13:06) Final results Test Result Flag Units (Reference) INFLUENZA A NEGATIVE (NORMAL: NEGAT INFLUENZA B NEGATIVE (NORMAL: NEGAT INFLUENZA A REENTER NEGATIVE (NORMAL: NEGAT INFLUENZA B REENTER NEGATIVE (NOR MAL: NEGAT PROCEDURAL CONTROL VALID KIT LOT # _[id number] 04/11/21.1305.JSK. KIT EXP DATE _02/16/22 04/11/21.1305.JSK.The Influenza A utilizing an isothermal nucleic acid amplification technology for thequalitativedetection of influenza A and B viral RNA.Negative results do not preclude influenza virus infection and shouldnot beused as the sole basis for diagnosis, treatment or other patient managementdecisions.Rapid Strep Screen: (CHEN: 04/11/2021 12:42) ( MsgRcvd 04/11/2021 13:00) Final results Test Result Flag Units (Reference) 4 Clinical Report - Physicians/Mid Levels [facility] Emergency Department [address] [place] [address] Phone #: ext- [phone] 04/11/2021 11:32 Patient: JAH ZAMORA Sex: M : 1985 Age: 35y RAPID STREP NEGATIVE (NORMAL: NEGAT RAPID STREP REENTER NEGATIVE (NORMAL: NEGAT { PROCEDURAL CONTROL VALID ){ KIT LOT # [id number] ){ KIT EXP DATE 07/18/22 )The Strep A 2 assay utilizes isothermal nucleic acid amplification technology fothe qualitative detection of Group A Strep bacterial nucleic acid in throat swabspecimens.All negative test results no longer need to be confirmed with a culture. Follow-up testing requiring a culture is necessary if clinical symptoms persist, or inthe event of an acute rheumatic fever outbreak. A culture will need to beordered by the Qualified Medical Provider.Negative results do not preclude infection with Group A Strep and should not beused as the sole basis for treatment..PROGRESS AND PROCEDURESCourse of Care: 13:49 Apr 11 2021. Evaluation after observation; results of tests back. (Discussed testresults and Chest x-ray and pt yvrose like to be tested for Covid, due to s/s will do PCR.). Patient counseled in person regarding the patient's stable condition, test results, diagnosis and need for follow-up. Patient agrees with plan of care. 13:50 Apr 11 2021. Disposition: Discharged home in good and improved condition (13:51 Apr 11 2021).CLINICAL IMPRESSION Coronavirus COVID-19 presumed (confirmatory testing pending) with bronchitis.INSTRUCTIONS Do not work (3-5 days until Covid Test is complete). Warnings: Further evaluation is necessary. It is very important to follow up with a healthcare provider. GENERAL WARNINGS: Return or contact your physician immediately if your condition worsens or changes unexpectedly, if not improving as expected, or if other problems arise. SPECIFICALLY, return if there is worsening of the chest pain or difficulty breathing. Your Current Medications: Your current home medications have been reviewed. CONTINUE TAKING THE FOLLOWING MEDICATIONS: Antidepressant name unknown*. busPIRone HCl Oral : 2x a day. Cyclobenzaprine HCl Oral : 10 mg. Gabapentin Oral : 300 mg daily, at bedtime. Melatonin Oral : Tablet 3 mg, 1 tablet. traZODone HCl Oral : 50 mg. Prescription Medications: 5 Clinical Report - Physicians/Mid [facility] Emergency Department [address] [place] [address] Phone #: ext- [phone] 04/11/2021 11:32 [id number] Sex: M : 1985 Age: 35y Medrol (Keagan) 4 mg tablets in a dose pack Take 1 tablet as directed for 6 days -- Dispense 21 tablet. Refills: 0. Substitution permitted. Pharmacy - [facility] [address] ; [place] [address]. Phone: . azithromycin 250 mg tablet -- Take 2 tablets on the first day then one tablet daily for 4 days, total duration is 5 days. Dispense 6 tablet. Refills: 0. Substitution permitted. Pharmacy - [facility] [id number] ; [place] [address]. . albuterol sulfate HFA 90 mcg/actuation aerosol inhaler Inhale 2 puff four times a day -- Dispense 8.5 gram. Refills: 0. Substitution permitted. Pharmacy - [facility] [address] ; [place] [address]. . benzonatate 200 mg capsule Take 1 capsule three times a day as needed for 10 days -- Dispense 30 capsule. Refills: 0. Substitution permitted. Pharmacy - [facility] [address] ; [place] [address]. Phone: . Follow-up: Follow up with your doctor as needed. Reason for referral: evaluation and treatment. Summary of care provided to patient. Understanding of the discharge instructions verbalized by patient.(Electronically signed by ZAFAR De Jesus 04/11/2021 21:32) Name Value Range Interpretation Code Description Data Marlene rce(s) Supporting Document(s) ID Date Data Source [id number] 04/11/2021 03:15:[address] [facility] [address] [place] [address] PHONE: [phone] FAX: [phone] Name ..............: NOAH TYSON Acct Number ...........................: [id number] ROOM. ............: VT-20 Number ............................: [id number] Stay type.........: E/R Discharge Date...............:04/11/21 Admit Date .....: 04/11/21 Admit Phys .............................: MARIBEL Aiken Date of ..: 1985 Family Phys ...........................: NON STAFF Phone..............: Age.................................:35 Film# ...............:[id number] Sex.................................:M Unsigned transcriptions are preliminary reports and do [place] represent [place] [id number] COMPLETE:04/11/21 14:22 [facility] [id number] Please See Scanned Results. Name Value Range Interpretation Code Description Data Marlene rce(s) Supporting Document(s) ID Date Data Source [id number] 04/11/2021 02:43:00 [place] [address] PHONE: [phone] FAX: [phone] Name .................. : NOAH TYSON Acct Number.................. : [id number] ROOM. ................. : [address] Number ................... : [id number] Stay type ............. : E/R Discharge Date......... ... : Admit Date ......... : 04/11/21 Admit Phys .................... : MARIBEL Aiken Date of ....... : 1985 Family Phys ................... : NON STAFF Phone .................. : Age ................................ : 35 Film# .................. .:[id number] Sex ................................. : M Unsigned transcriptions are preliminary reports and do not represent a medical or legal document CHEST 2 VIEWS [id number] COMPLETE:04/11/21 12:21 [id number] Reason(s): Chest Pain FRONTAL AND LATERAL CHEST 2 VIEWS INDICATION: Chest pain COMPARISON: None FINDINGS: Mediastinal and hilar structures are normal. Cardiac silhouette is unremarkable. The lungs are clear. No pleural effusions or pneumothorax. Skeletal structures appear intact. IMPRESSION: Normal exam. Electronically Reviewed and Signed By Tony Pitts MD , 04/11/21 14:43, DIMITRI Transcribe Initials: SSR, Transcribe Date: 04/11/21 13:58, Dictation Date: Copy for: [facility] via fax Copy for: EMERGENCY DEPT via modem Copy for: 710 MED REC DISCHARGED Page 1 of 1 Name Value Range Interpretation Code Description Data Marlene rce(s) Supporting Document(s) ID Date Data Source [id number] 04/11/2021 01:52:00 PM EDT [facility] Name Value Range Interpretation Code Description Data Marlene rce(s) Supporting Document(s) SARS coronavirus 2 RNA Not Detected [facility] This lab was ordered by [facility] alison and reported by [facility]. ID Date Data Source [id number] 04/12/2021 07:14:00 PM EDT [facility] Name Value Range Interpretation Code Description Data Marlene rce(s) Supporting Document(s) SARS-CoV-2, KEVEN Not Detected Not Detected [facility] This nucleic acid amplification test was developed and its performancecharacteristics determined by [facility]. Nucleic acidamplification tests include RT-PCR and TMA. This test has not beenFDA cleared or approved. This test has been authorized by FDA underan Emergency Use Authorization (EUA). This test is only authorizedfor the duration of time the declaration that circumstances existjustifying the authorization of the emergency use of in vitrodiagnostic tests for detection of SARS-CoV-2 virus and/or diagnosisof COVID-19 infection under section 564(b)(1) of the Act, 21 U.S.C.360bbb-3(b) (1), unless the authorization is terminated or revokedsooner.When diagnostic testing is negative, the possibility of a falsenegative result should be considered in the context of a patient'srecent exposures and the presence of clinical signs and symptomsconsistent with COVID- 19. An individual without symptoms of COVID-19and who is not shedding SARS-CoV-2 virus would expect to have anegative (not detected) result in this assay. SARS-CoV-2, KEVEN 2 DAY TAT Performed [facility] ID Date Data Source [id number] 04/11/2021 01:29:00 PM EDT [facility] Name Value Range Interpretation Code Description Data Marlene rce(s) Supporting Document(s) TROPONIN T <0.01 NG/ML 0.00 - 0.10 [facility] TROPONIN T0.1 ng/ml Recommended as the c linical threshold value forTroponin T. ID Date Data Source [id number] 04/11/2021 01:29:00 PM EDT [facility] Name Value Range Interpretation Code Description Data Marlene rce(s) Supporting Document(s) COMPREHENSIVE METABOLIC PANEL [facility] COMPREHENSIVE METABOLIC PANEL Sodium [Moles/volume] in Serum or Plasma 142 mEq/L 134 - 153 [facility] Potassium [Moles/volume] in Serum or Plasma 4.4 mEq/L 3.6 - 5.0 [facility] Chloride [Moles/volume] in Serum or Plasma 106 mEq/L 98 - 107 [facility] Carbon dioxide, total [Moles/volume] in Serum or Plasma 25 MEQ/L 22 - 30 [facility] Glucose [Mass/volume] in Serum or Plasma 96 MG/DL 70 - 99 [facility] BUN 17 MG/DL 7 - 21 [facility] al Creatinine [Mass/volume] in Serum or Plasma 1.4 MG/DL 0.7 - 1.5 [facility] BUN/CREAT 12 8 - 27 [facility] al Protein [Mass/volume] in Serum or Plasma 7.1 G/DL 6.3 - 8.2 [facility] Albumin [Mass/volume] in Serum or Plasma 4.9 G/DL 3.9 - 5.0 [facility] Globulin [Mass/volume] in Serum by calculation 2.2 GM/DL 2.4 - 3.2 L [facility] A/G RATIO 2.2 0.8 - 2.0 [facility] Calcium [Mass/volume] in Serum or Plasma 10.0 MG/DL 8.4 - 10.2 [facility] Bilirubin.total [Mass/volume] in Serum or Plasma <0.7 MG/DL 0.2 - 1.3 [facility] Alkaline phosphatase [Enzymatic activity/volume] in Serum or Plasma 52 U/L 38 - 126 [facility] Aspartate aminotransferase [Enzymatic activity/volume] in Serum or Plasma 14 U/L 5 - 40 [facility] Alanine aminotransferase [Enzymatic activity/volume] in Seru m or Plasma 15 U/L 7 - 56 [facility] Anion gap 3 in Serum or Plasma 11.0 mmol/L 8.0 - 16.0 [facility] AGE 35 yrs [facility] al NON-AA GFR >60 mL/min [facility] ital AFR AMER GFR >60 mL/min [facility] Ho spital Male GFR In terprentation 20-49 yrs >60 mL/min Normal 50-59 yrs >56 mL/min Normal 60-69 yrs >49 mL/min Normal 70-79yrs >42 mL/min Normal 80 and above >35 mL/min Normal Female GFR Interpretation 20-39 yrs >60 mL/min Normal 40-49 yrs >58 mL/min Normal 50-59 yrs >51 mL/min Normal 60-69 yrs >45 mL/min Normal 70-79 yrs >39 mL/min Normal 80 and above >32 mL/min Normal ID Date Data Source [id number] 04/11/2021 01:05:00 PM EDT [facility] Name Value Range Interpretation Code Description Data Marlene rce(s) Supporting Document(s) Influenza virus A Ag [Presence] in Nasopharynx by Immunoassa y NEGATIVE NORMAL: NEGATIVE [facility] Influenza virus B Ag [Presence] in Nasopharynx by Immunoassa y NEGATIVE NORMAL: NEGATIVE [facility] NEGATIVENEGATIVE PROCEDURAL CO NTROL VALID KIT LOT # [id number] 04/11/21.1305.JSK. KIT EXP DATE _02/16/22 04/11/21.1305.JSK.The Influenza A & B assay is a rapid molecular in vitro diagnostic testutilizing an isothermal nucleic acid amplification technology for thequalitative detection of influenza A and B viral RNA.Negative results do not preclude influenza virus infection and should not beused as the sole basis for diagnosis, treatment or other patient managementdecisions. ID Date Data Source [id number] 04/11/2021 01:00:00 PM EDT [facility] Name Value Range Interpretation Code Description [facility] Supporting Document(s) RAPID STREP NEGATIVE NORMAL: NEGATIVE [facility] RAPID STREP REENTER NEGATIVE NORMAL: NEGATIVE [facility] { PROCEDURAL CONTROL VALID ){ KIT LOT # [id number] ){ KIT EXP DATE 07/18/22 )The Strep A 2 assay utilizes isothermal nucleic acid amplification technology fothe qualitative detection of Group A Strep bacterial nucleic acid in throat swabspecimens.All negative test results no longer need to be confirmed with a culture. Follow-up testing requiring a culture is necessary if clinical symptoms persist, or inthe event of an acute rheumatic fever outbreak. A culture will need to beordered by the Qualified Medical Provider.Negative results do not preclude infection with Group A Strep and should not beused as the sole basis for treatment. ID Date Data Source [id number] 04/11/2021 12:57:00 PM EDT [facility] Name Value Range Interpretation Code Description Data [facility] rce(s) Supporting Document(s) CBC W/AUTOMATED DIFF [facility] COMPLETE BLOOD COUNT Leukocytes [#/volume] in Blood by Automated count 8.9 10^3/uL 4.2 - 1 1.0 [facility] Erythrocytes [#/volume] in Blood by Automated count 5.50 10^6/uL 4. 50 - 6.30 [facility] Hemoglobin [Mass/volume] in Blood 15.3 g/dL 14.0 - 16.0 [facility] Hematocrit [Volume Fraction] of Blood by Automated count 45.6 % 4 1.0 - 51.0 [facility] Erythrocyte mean corpuscular volume [Entitic volume] by Auto mated count 82.9 fL 80.0 - 94.0 [facility] Erythrocyte mean corpuscular hemoglobin [Entitic mass] by Automated count 27.8 pg 27.0 - 34.0 [facility] Erythrocyte mean corpuscular hemoglobin concentration [Mass/volume] by Automated count 33.6 g/dL 31.0 - 36.0 [facility] Erythrocyte distribution width [Ratio] by Automated count 13.2 % 11.5 - 14.8 [facility] Platelets [#/volume] in Blood by Automated count 254 10^3/uL 150 - 45 0 [facility] Platelet mean volume [Entitic volume] in Blood by Automated count 10.4 fL 7.4 - 10.4 [facility] Neutrophils/100 leukocytes in Blood by Automated count 33.4 % 37. 0 - 80.0 L [facility] Lymphocytes/100 leukocytes in Blood by Manual count 43.1 % 25.0 - 40.0 H [facility] Monocytes/100 leukocytes in Blood by Automated count 10.8 % 3.0 - 8.0 H [facility] Eosinophils/100 leukocytes in Blood by Automated count 12.0 % 0.0 - 7.0 H [facility] Basophils/100 leukocytes in Blood by Automated count 0.5 % 0.0 - 2.0 [facility] %[facility] 0.2 % [facility].0 [facility] % 0.0 - 0.0 [facility] al Neutrophils [#/volume] in Blood by Automated count 2.97 10^3/uL 2.00 - 6.90 [facility] Lymphocytes [#/volume] in Blood by Automated count 3.82 10^3/uL 0.60 - 3.40 H [facility] Monocytes [#/volume] in Blood by Automated count 0.96 10^3/uL 0.00 - 0.90 H [facility] Eosinophils [#/volume] in Blood by Automated count 1.06 10^3/uL 0.00 - 0.70 H [facility] Basophils [#/volume] in Blood by Automated count 0.04 10^3/uL 0.00 - 0.20 [facility] #IG 0.02 10^3/uL 0.00 - 0.10 [facility] #NRBC 0.00 10^3/uL 0.00 - 0.00 [facility] MANUAL DIFF NOT INDICATED [facility] RBC MORPH NOT INDICATED [facility] spital Procedure Social History No Information Vital Signs ID Date Data Source UNK Name Value Range Interpretation Code Description Data Source(s) Systolic blood pressure 136 mm[Hg] 136 mm[Hg] [facility] Diastolic blood pressure 83 mm[Hg] 83 mm[Hg] [facility] ([facility] Heart rate 69 /min 69 /min [facility] ([facility] Respiratory rate 14 /min 14 /min [facility] ( [facility] Oxygen saturation in Arterial blood by Pulse oximetry 98 % 98 % [facility] ([facility] Body temperature 97.7 [degF] 97.7 [degF] [facility] ([facility]) Body weight 205.00 [lb_av] 205.00 [lb_av] [facility] ([facility] Body height 71 [in_i] 71 [in_i] [facility] ([facility]) 5'11" Body mass index (BMI) [Ratio] 28.6 kg/m2 28.6 k g/m2 [facility] ([facility])
[2021-04-27] MEDS ORDERED: BUSP5TA PO (13:07)
[2021-04-27] MEDS ORDERED: TRAZ1TAB12 PO (13:07)
[2021-04-27] MEDS ORDERED: CYCL-707 PO (13:07)
[2021-04-27] MEDS ORDERED: GABA-283 PO (13:07)
[2021-04-27] MEDS ORDERED: CELE10TA PO (13:07)
[2021-04-27 13:44] LABS: HEMATOCRIT 45.3 % (42.0-52.0); HEMOGLOBIN 14.8 g/dl (13.5-17.5); MEAN CORPUSCULAR HEMOGLOBIN 27.5 pg (27.0-33.0); MEAN CORPUSCULAR HGB CONC 32.7 g/dl (32.0-36.5); PLATELET COUNT, AUTOMATED 225 10^3/uL (150-450); RED BLOOD COUNT 5.39 10^6/uL (4.30-6.10); WHITE BLOOD COUNT 7.4 10^3/uL (4.0-10.0)
--- OUTSIDE RECORDS SUMMARY | 2021-04-27 14:13 | CCD ---
Author Author [facility] Organization [facility] Address Unknown Phone Unavailable Care Team Providers Care Virtual Classroom Manager Name Role Phone Betancourt, Yas FIRE CHIEF Unavailable Unavailable Betancourt, Yas FIRE CHIEF Unavailable Unavailable Bteancourt, Yas FIRE CHIEF Unavailable Unavailable Betancourt, Yas FIRE CHIEF Unavailable Unavailable Betancourt, Yas FIRE CHIEF Unavailable Unavailable Betancourt, Yas FIRE CHIEF Unavailable Unavailable Betancourt, Yas FIRE CHIEF Unavailable Unavailable Betancourt, Yas FIRE CHIEF Unavailable Unavailable Betancourt, Yas FIRE CHIEF Unavailable Unavailable Betancourt, Yas FIRE CHIEF Unavailable Unavailable Betancourt, Yas FIRE CHIEF Unavailable Unavailable Betancourt, Yas FIRE CHIEF Unavailable Unavailable Betancourt, Yas FIRE CHIEF Unavailable Unavailable Didier Palomino MD Unavailable Unavailable Didier Palomino MD Unavailable Unavailable Didier Palomino MD Unavailable Unavailable Didier Palomino MD Unavailable Unavailable Didier Palomino MD Unavailable Unavailable Didier Palomino MD Unavailable Unavailable UNKNOWN, [facility] Unavailable Unavailable Yeimy AMADO MD Unavailable [...] is protected by Article 27-F of the [facility] Public Health law. If you continue you may have access to information: Regarding HIV / AIDS; Provided by facilities licensed or operated by the [facility] Office of Mental Health; or Provided by the [facility] Office for People With Developmental Disabilities. If such information is present, then the following [facility] mandated warning applies: This information has been [...] law may result in a fine or assisted sentence or both. A general authorization for the release of medical or other information is NOT sufficient authorization for further disc losure. Encounters Encounter Providers Location Date Indications Data Source(s ) Emergency Attender: NASH AMADO MDConsultant: PHIL UNKNOW N 04/18/2021 05:13:00 PM EDT - 04/18/2021 08:09:[address] [facility] Patient discharged. Emergency Attender: Didier Palomino MDConsultant: STAFF NON 04/11/2021 11:48:00 AM EDT - 04/11/2021 02:20:[address] [facility] Patient discharged. Outpatient Attender: Yas Boykin adriana 12/28/2020 03:35:00 PM EDT [facility] ([facility], [facility]) Medications Medication Brand Name Start Date Product Form Dose Route Admi nistrative Instructions Pharmacy Instructions Status Indications Reaction Description Data Source(s) Mupirocin 0.02 MG/MG Topical Ointment Mupirocin 12/28/2020 12:00:00 AM EDT active [facility] ([facility], [facility]) Cephalexin 500 MG Oral Tablet Cephalexin 12/28/2020 12:00:00 AM EDT ORAL active [facility] ([facility], [facility]) Ibuprofen 800 MG Oral Tablet Ibuprofen 12/28/2020 12:00:00 AM EDT ORAL active [facility] ([facility], [facility]) Insurance Providers Payer name Policy type / Coverage type Policy ID Covered alliance party ID Covered alliance party's relationship to chavez Policy Chavez Plan Information [employer] [id number] [employer] - O/P [id number] 18 [id number] [employer] - O/P [id number] Problems, Conditions, and Diagnoses Code Display Name Description Problem Type Effective Dates Data Source(s) W77887 Personal history of nicotine dependence Personal history of nicotine dependence Diagnosis 04/18/2021 05:13:[address] [facility] Z8616 PERSONAL HISTORY OF COVID-19 PERSONAL HISTORY OF COVID -19 Diagnosis 04/18/2021 05:13:[address] [facility] E40882 CONTACT WITH AND SUSPECTED EXPOSURE TO C OVID-19 CONTACT WITH AND SUSPECTED EXPOSURE TO COVID-19 Diagnosis 04/18/2021 05:13:00 PM EDT [facility] E860 Dehydration Dehydration Diagnosis 04/18/2021 05:13:[address] [facility] J069 Acute upper respiratory infection, unspe cified Acute upper respiratory infection, unspecified Diagnosis 04/18/2021 05:13:00 PM EDT [facility] R059 Cough, unspecified Cough, unspecified Diagnosis 05:13:[address] [facility] J40 Bronchitis, not specified as acute or ch ronic Bronchitis, not specified as acute or chronic Diagnosis 04/11/2021 11:48:[address] [facility] R0600 Dyspnea, unspecified Dyspnea, unspecified Diagnosis 04/11/2021 11:48:[address] [facility] Surgeries/Procedures Procedure Description Date Indications Data Source(s) OFFICE OUTPATIENT NEW 30 MINUTES 12/28/2020 12:00:00 A M EDT [facility], [facility]) Results ID Date Data Source [id number] 04/18/2021 05:13:[address] [facility] [address] [facility] Emergency Department [address] [place] [address] Phone #: ext- [phone] 04/18/2021 16:46 Patient: [...] Coughlin Norma MD; Oleksandr Coughlin [address] [facility] Emergency Department [address] [place] [address] Phone #: ext- [phone] 04/18/2021 16:46 --------- [...] 6 Nash Amado MD; Sukhwinder (3 mL [id number])GENERAL ORDERSOrder Description Priority Entered Acknowledged Initialed[Electronically signed by Oleksandr Coughlin (20:09 04/18/2021)][Electronically signed by Nash Amado MD (06:33 04/19/2021)][Electronically locked by Oleksandr Coughlin (20:09 04/18/2021)] Name Value Range Interpretation Code Description Data Marlene rce(s) Supporting Document(s) ID Date Data Source [id number] 04/18/2021 05:13:[address] [facility] [address] [facility] Emergency Department [address] [place] [address] Phone #: ext- [phone] 04/18/2021 16:46 Patient: [...] to the patient: [address] [facility] Emergency Department [address] [place] [address] Phone #: ext- [phone] 04/18/2021 16:46 Patient: JAH ZAMORA Sex: M : 1985 Age: 35yalbuterol sulfate HFA 90 mcg/actuation aerosol inhaler Inhale 2 puff four times a day as needed for 7 days-- prn wheezing. Dispense 18 gram. Refills: 1. Substitution permitted. Note to Pharmacy - USE RxDISCOUNT CARD: $45.56, BIN:[id number], PCN:ANGELA, Group:[id number], ID:[id number].Pharmacy - [facility] [address] ; [place] [address]. . -- Nash Amado MD Name Value Range Interpretation Code Description Data Marlene rce(s) Supporting Document(s) ID Date Data Source [id number] 04/18/2021 05:13:[address] [facility] [address] [facility] Emergency Department [address] [place] [address] Phone #: ext- [phone] 04/18/2021 16:46 Patient: JAH ZAMORA Sex: M : 1985 Age: 35yWeight: 95.2 kgHeight/Length: 71 inBMI: 29.3ALLERGIES: None Date/Time Medication Administered Medication OrderedStart NS [IV] IV NS 1000 mL Bolus : Bolus [id number]:26 04/18/2021 Dose: IV Fluids mL (X1)Oleksandr Coughlin, Bolus: 1000 mL wide open---- Dispensed: 1000 mL bagStop Site: #1 left AC20:00 04/18/2021Oleksandr Coughlin,Start NS [IV] IV NS 1000 mL Bolus : Bolus 743853:11 04/18/2021 Dose: IV Fluids mL (X1)Oleksandr Coughlin, Bolus: 1000 mL wide open---- Dispensed: 1000 mL bagStop Site: #1 left AC20:00 04/18/2021Oleksandr Coughlin,Given DUONEB [NEB TX] DuoNeb 3 mL X2 Doses (Filtered):19:27 04/18/2021 Dose: 2 unit dose Nebulizer Neb TX 6 mL (3 mL X2 Doses)Oleksandr Coughlin,----Stop19:45 04/18/2021Oleksandr Coughlin, Name Value Range Interpretation Code Description Data Marlene rce(s) Supporting Document(s) ID Date Data Source [id number] 04/18/2021 05:13:[address] [facility] [address] [facility] Emergency Department [address] [place] [address] Phone #: ext- [phone] 04/18/2021 16:46 Patient: [...] to Pharmacy - USE RxDISCOUNT CARD: $45.56, BIN:[id number], PCN:ANGELA, Group:[id number], ID:[id number].Pharmacy - [facility] [address] [facility] [address] ; [place] [address]. .Follow-up:Follow up with your doctor Wednesday even if well. Call for an appointment. Reason for referral: evaluation.Summary of care provided to patient via paper.Understanding of the discharge instructions verbalized by patient. [address] [facility] Emergency Department [address] [place] [address] Phone #: ext- [phone] 04/18/2021 16:46 Patient: JAH ZAMORA Acc t#: [id number] Sex: M : 1985 Age: 35y ADDITIONAL [...] 100.4F (38C) or higher [address] [facility] Emergency Department [address] [place] [address] Phone #: ext- [phone] 04/18/2021 16:46 Patient: JAH ZAMORA Sex: M : 1985 Age: 35yCall 911Call 911 or get medical care right away if you have any of the following: Weakness, dizziness, or fainting Unusual drowsiness or confusion Blood in vomit or stool [phone] [employer]. [address] [place] [address] 45595. All rights reserved. This information is not intended as asubstitute for professional medical care. Always follow your healthcare professional's instructions.Viral Upper Respiratory Illness (Adult) [address] [facility] Emergency Department [address] [place] [address] Phone #: ext- [phone] 04/18/2021 16:46 Patient: [...] yourself get too tired. [address] [facility] Emergency Department [address] [place] [address] Phone #: ext- [phone] 04/18/2021 16:46 Patient: [...] loosen secretions in the nose and lungs. Oyly-lqa-xwjijtv cold medicines will not shorten the length of time you're sick, but they may be helpful for the following symptoms: cough, sore throat, and nasal and sinus congestion. If you take prescription medicines, ask your healthcare provider or pharmacist which rwyr-qdk-fwvfilu medicines are safe to use. (Note: Don't [...] it goes along with a muffled voice [employer]. [address] [place] [address] 41825. All rights reserved. This information is not intended as a [address] [facility] Emergency Department [address] [place] [address] Phone #: ext- [phone] 04/18/2021 16:46 Patient: [...] rce(s) Supporting Document(s) ID Date Data Source [id number] 04/18/2021 05:13:[address] [facility] 1 Clinical Report - Nurses 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 --16:53 04/18/21 Ginny Lozano R.N.16:47 04/18/21. Pain level now 12/28. --16:53 10/29/21 Ginny Lozano R.N.20:08 04/18/21. BP: deferred. HR: deferred. RR: deferred. O2 saturation: deferred. Temp: deferred. Painlevel now deferred. --20:09 04/18/21 CedOleksandr.Weight: 95.2 kg stated. Height/Length: 71 inches Per [...] R.N.PROBLEMS:Arthritis.Anxiety Reaction. 2 Clinical Report - Nurses [facility] Emergency Department [address] [place] [address] Phone #: ext- [phone] 04/18/2021 16:46 Patient: [...] acute distress. 3 Clinical Report - Nurses [facility] Emergency Department [address] [place] [address] Phone #: ext- [phone] 04/18/2021 16:46 Patient: JAH ZAMORA Sex: M [...] Call light 4 Clinical Report - Nurses [facility] Emergency Department [address] [place] [address] Phone #: ext- [phone] 04/18/2021 16:46 Patient: JAH ZAMORA Sex: M [...] Patient verbalized understanding. Written instructions provided in [place] [employer]. No treatment instructions, diet instructions, follow up [...] rce(s) Supporting Document(s) ID Date Data Source [id number] 04/18/2021 05:13:[address] [facility] 1 Clinical Report - Physicians/Mid Levels [facility] Emergency Department [address] [place] [address] Phone #: ext- [phone] 04/18/2021 16:46 Patient: [...] Oral. 2 Clinical Report - Physicians/Mid Levels [facility] Emergency Department [address] [place] [address] Phone #: ext- [phone] 04/18/2021 16:46 Patient: [...] 36.0) 3 Clinical Report - Physicians/Mid Levels [facility] Emergency Department [address] [place] [address] Phone #: ext- [phone] 04/18/2021 16:46 ------ Patient: JAH ZAMORA Sex: [...] Male GFR Interprentation 20-49 yrs >60 mL/min Fynzgt28-09 yrs >56 mL/min Normal 60-69 yrs >49 mL/min Normal 70-79yrs>42 mL/min Normal 80 and above >35 mL/min Normal Female GFR 4 Clinical Report - Physicians/Mid Levels [facility] Emergency Department [address] [place] [address] Phone #: ext- [phone] 04/18/2021 16:46 Patient: [...] PROCEDURAL CONTROL VALID ){ KIT LOT # [id number] ){ KIT EXP DATE 10.01.21 ) Magnesium: [...] counseled. 5 Clinical Report - Physicians/Mid Levels [facility] Emergency Department [address] [place] [address] Phone #: ext- [phone] 04/18/2021 16:46 Patient: [...] Pharmacy - USE Rx DISCOUNT CARD: $45.56, BIN:[id number], PCN:ANGELA, Group:[id number], ID:[id number]. Pharmacy - [facility] [address] [facility] [address] ; [place] [address]. . Follow-up: Follow up with your doctor Wednesday even if well. Call for an appointment. Reason for referral: evaluation. Summary of care provided to patient via paper. Understanding of the discharge instructions verbalized by patient. 6 Clinical Report - Physicians/Mid Levels [facility] Emergency Department [address] [place] [address] Phone #: ext- [phone] 04/18/2021 16:46 Patient: JAH ZAMORA Sex: M : 1985 Age: 35y(Electronically signed by Nash Amado MD 04/19/2021 06:33) Name Value Range Interpretation Code Description Data Marlene rce(s) Supporting Document(s) ID Date Data Source [id number] 04/18/2021 05:13:[address] [facility] Addenda for JAH ZAMORA VisitID: [id number] Date: 11:28pt informed of negative covid test, pt verbalized understanding(Electronically signed by Valerie Donnelly R.N. - 04/21/2021 11:28) Name Value Range Interpretation Code Description Data Marlene rce(s) Supporting Document(s) ID Date Data Source [id number] 04/19/2021 09:36:00 AM EDT [facility] [address] [place] [address] PHONE: [phone] FAX: [phone] Name .................. : NOAH TYSON Acct Number.................. : [id number] ROOM. ................. : [facility] MR Number ................... : [id number] Stay type ............. : E/R Discharge Date......... ... : 04/18/21 Admit Date ... ...... : 04/18/21 Admit Phys .................... : COONEYNORM Date of ....... : 1985 Family Phys ................... : UNKNOWN BEVERLY Phone .................. : [phone] Age ................................ : 35 Film# .................. .:[id number] Sex ................................. : M Unsigned transcriptions are preliminary reports and do not represent a medical or legal document CHEST PORTABLE [id number] COMPLETE:04/18/21 19:46 MARCIO [id number] Reason(s): Congestion PORTABLE CHEST SINGLE VIEW 6:41 [...] rce(s) Supporting Document(s) ID Date Data Source [id number] 04/18/2021 06:22:00 PM EDT [facility] Name Value Range Interpretation Code Description Data Marlene rce(s) Supporting Document(s) SARS coronavirus 2 RNA Not Detected [facility] by [facility]. ID Date Data Source [id number] 04/21/2021 06:20:[address] [facility] Name Value Range Interpretation Code Description Data Marlene rce(s) Supporting Document(s) SARS-CoV-2, KEVEN Not Detected Not Detected [facility] This nucleic acid amplification test was developed and its performancecharacteristics determined by [facility]. Nucleic acidamplification tests include RT-PCR and [...] in this assay. ID Date Data Source [id number] 04/18/2021 07:09:[address] [facility] Name Value Range Interpretation Code Description Data Marlene rce(s) Supporting Document(s) CBC W/AUTOMATED DIFF [facility] COMPLETE BLOOD COUNT Leukocytes [#/volume] in Blood by Automated count 14.1 10^3/uL 4.2 - 11.[address] [facility] Erythrocytes [#/volume] in Blood by Automated count 5.58 10^6/uL 4. 50 - 6.30 [facility] Hemoglobin [Mass/volume] in Blood 15.7 g/dL 14.0 - 16.0 [facility] Hematocrit [Volume Fraction] of Blood by Automated count 47.0 % 4 1.0 - 51.0 [facility] Erythrocyte mean corpuscular volume [Entitic volume] by Auto mated count 84.2 fL 80.0 - 94.0 [facility] Erythrocyte mean corpuscular hemoglobin [Entitic mass] by Automated count 28.1 pg 27.0 - 34.0 [facility] Erythrocyte mean corpuscular hemoglobin concentration [Mass/volume] by Automated count 33.4 g/dL 31.0 - 36.0 [facility] Erythrocyte distribution width [Ratio] by Automated count 13.4 % 11.5 - 14.8 [facility] Platelets [#/volume] in Blood by Automated count 275 10^3/uL 150 - [address] [facility] Platelet mean volume [Entitic volume] in Blood by Automated count 10.2 fL 7.4 - 10.4 [facility] Neutrophils/100 leukocytes in Blood by Automated count 53.0 % 37. 0 - 80.0 [facility] Lymphocytes/100 leukocytes in Blood by Manual count 26.5 % 25.0 - 40.0 [facility] Monocytes/100 leukocytes in Blood by Automated count 10.0 % 3.0 - 8.[address] [facility] Eosinophils/100 leukocytes in Blood by Automated count 9.4 % 0.0 - 7.[address] [facility] Basophils/100 leukocytes in Blood by Automated count 0.5 % 0.0 - 2.0 [facility] %IG 0.6 % 0.0 - 0.0 [facility] %NRBC 0.0 % 0.0 - 0.0 [facility] Neutrophils [#/volume] in Blood by Automated count 7.45 10^3/uL 2.00 - 6.[address] [facility] Lymphocytes [#/volume] in Blood by Automated count 3.73 10^3/uL 0.60 - 3.40 H [facility] Monocytes [#/volume] in Blood by Automated count 1.41 10^3/uL 0.00 - 0.90 H [facility] Eosinophils [#/volume] in Blood by Automated count 1.32 10^3/uL 0.00 - 0.[address] [facility] Basophils [#/volume] in Blood by Automated count 0.07 10^3/uL 0.00 - 0.20 [facility] #IG 0.09 10^3/uL 0.00 - 0.10 [facility] #NRBC 0.00 10^3/uL 0.00 - 0.00 [facility] MANUAL DIFF SEE BELOW [employer] ital Segmented neutrophils/100 leukocytes in Blood by Manual count 63 % 37 - 80 [facility] %LYMPH 20 % 25 - 40 [facility] %MONO 8 % 3 - 8 [facility] %EOS 9 % 0 - 7 [facility] RBC MORPH SEE BELOW [facility] { SICKLE CELL (NORMAL: NONE SEEN ) Smudge cells [Presence] in Blood by Light microscopy 1+ NASH L: NONE SEEN A [facility] Platelet adequacy [Presence] in Blood by Light microscopy NORMAL NORMAL: NORMAL [facility] COMMENT: ID Date Data Source [id number] 04/18/2021 07:00:[address] [facility] Name Value Range Interpretation Code Description Data Marlene rce(s) Supporting Document(s) Influenza virus A Ag [Presence] in Nasopharynx by Immunoassa y NEGATIVE NORMAL: NEGATIVE [facility] Influenza virus B Ag [Presence] in Nasopharynx by Immunoassa y NEGATIVE NORMAL: NEGATIVE [facility] NEGATIVENEGATIVE PROCEDURAL CO NTROL VALID KIT LOT [...] other patient managementdecisions. ID Date Data Source [id number] 04/18/2021 06:53:00 PM EDT [facility] Value Range Interpretation Code Description Data Marlene rce(s) Supporting Document(s) RSV ANTIGEN NEGATIVE NORMAL: NEGATIVE [facility] RSV ANTIGEN REENTER NEGATIVE NORMAL: NEGATIVE [facility] { PROCEDURAL CONTROL VALID ){ KIT LOT # [id number] ){ KIT EXP DATE 10.01.21 ) ID Date Data Source [id number] 04/18/2021 06:51:[address] [facility] Name Value Range Interpretation Code Description Data Marlene rce(s) Supporting Document(s) COMPREHENSIVE METABOLIC PANEL [facility] COMPREHENSIVE METABOLIC PANEL Sodium [Moles/volume] in Serum or Plasma 139 mEq/L 134 - 153 [facility] Potassium [Moles/volume] in Serum or Plasma 4.2 mEq/L 3.6 - 5.0 [facility] Chloride [Moles/volume] in Serum or Plasma 105 mEq/L 98 - 107 [facility] Carbon dioxide, total [Moles/volume] in Serum or Plasma 24 MEQ/L 22 - 30 [facility] Glucose [Mass/volume] in Serum or Plasma 136 MG/DL 70 - [address] [facility] BUN 11 MG/DL 7 - 21 [facility] Creatinine [Mass/volume] in Serum or Plasma 1.1 MG/DL 0.7 - 1.5 [facility] BUN/CREAT 10 8 - 27 [facility] Protein [Mass/volume] in Serum or Plasma 7.1 G/DL 6.3 - 8.2 [facility] Albumin [Mass/volume] in Serum or Plasma 4.5 G/DL 3.9 - 5.0 [facility] Globulin [Mass/volume] in Serum by calculation 2.6 GM/DL 2.4 - 3.2 [facility] A/G RATIO 1.7 0.8 - 2.0 [facility] Calcium [Mass/volume] in Serum or Plasma 9.0 MG/DL 8.4 - 10.2 [facility] Bilirubin.total [Mass/volume] in Serum or Plasma <0.7 MG/DL 0.2 - 1.3 [facility] Alkaline phosphatase [Enzymatic activity/volume] in Serum or Plasma 55 U/L 38 - 126 [facility] Aspartate aminotransferase [Enzymatic activity/volume] in Serum or Plasma 13 U/L 5 - 40 [facility] Alanine aminotransferase [Enzymatic activity/volume] in Seru m or Plasma 20 U/L 7 - 56 [facility] Anion gap 3 in Serum or Plasma 10.0 mmol/L 8.0 - 16.0 [facility] AGE 35 yrs [facility] NON-AA GFR >60 mL/min [employer] ital AFR AMER GFR >60 mL/min [facility] Male GFR In terprentation [...] >32 mL/min Normal ID Date Data Source [id number] 04/18/2021 06:51:[address] [facility] Name Value Range Interpretation Code Description Data Marlene rce(s) Supporting Document(s) Magnesium [Mass/volume] in Serum or Plasma 2.0 MG/DL 1.7 - 2.2 [facility] ID Date Data Source [id number] 04/18/2021 06:42:[address] [facility] Name Value Range Interpretation Code Description Data Marlene rce(s) Supporting Document(s) Lactate [Moles/volume] in Serum or Plasma 2.5 MMOL/L 0.2 - 2.[address] [facility] ID Date Data Source [id number] 04/11/2021 11:48:[address] [facility] [address] [facility] Emergency Department [address] [place] [address] Phone #: ext- [phone] 04/11/2021 11:32 Patient: [...] STAT 12:21 04/11/2021 12:27 Josué [address] [facility] Emergency Department [address] [place] [address] Phone #: ext- [phone] 04/11/2021 11:32 Patient: [...] Peng RN PA;Blood Pressure 12:04/11/2021 12:27 Jackonityefri STEPHEN;Patient Access Registrar 12:04/11/2021 12:27 Josué(continuous) Bry Peng RN PA;Pulse oximeter 12:04/11/2021 12:27 Josué(Continuous) Bry STEPHEN;Vitals 12:04/11/2021 12:27 Josué STEPHEN;[Electronically signed by Josué Peng RN (14:30 04/11/2021)][Electronically signed by Bry Joseph (21:32 04/11/2021)][Electronically locked by Josué Peng RN (14:30 04/11/2021)] Name Value Range Interpretation Code Description Data Marlene rce(s) Supporting Document(s) ID Date Data Source [id number] 04/11/2021 11:48:[address] [facility] [address] [facility] Emergency Department [address] [place] [address] Phone #: ext- [phone] 04/11/2021 11:32 [facility]: [id number] Sex[facility] M : 1985 Age: 35yWeight: 95.2 [...] Dispense 21 tablet.Refills: 0. Substitution permitted.Pharmacy - [facility] [phone] [facility] [address] ; [place] [address]. FaxNumber: [phone]. [address] [facility] Emergency Department [address] [place] [address] Phone #: ext- [phone] 04/11/2021 11:32 Patient: JAH ZAMORA Sex: M : 1985 Age: 35yazithromycin 250 mg tablet -- Take 2 tablets on the first day then one tablet daily for 4 days, totalduration is 5 days. Dispense 6 tablet. Refills: 0. Substitution permitted.Pharmacy - [facility] [id number] [facility] [address] ; [place] [address]. FaxNumber: .albuterol sulfate HFA 90 mcg/actuation aerosol inhaler Inhale 2 puff four times a day -- Dispense 8.5gram. Refills: 0. Substitution permitted.Pharmacy - [facility] [phone] [facility] [address] ; [place] [address]. Phone: .benzonatate 200 mg capsule Take 1 capsule three times a day as needed for 10 days -- Dispense 30capsule. Refills: 0. Substitution permitted.Pharmacy - [facility] [phone] [facility] [address] ; [place] [address]. . -- ZAFAR De Jesus Name Value Range Interpretation Code Description Data Marlene rce(s) Supporting Document(s) ID Date Data Source [id number] 04/11/2021 11:48:00 AM EDT [place] [address] [facility] Emergency Department [address] [place] [address] Phone #: ext- [phone] 04/11/2021 11:32 Patient: [...] rce(s) Supporting Document(s) ID Date Data Source [id number] 04/11/2021 11:48:[address] [facility] [address] [facility] Emergency Department [address] [place] [address] Phone #: ext- [phone] 04/11/2021 11:32 Patient: [id number] Sex: M : 1985 Age: 35y Coronavirus [...] tablet. Refills: 0. Substitution permitted. Pharmacy - [facility] [address] ; [place] [address]. . azithromycin 250 mg tablet -- Take 2 tablets on the first day then one tablet daily for 4 days, total duration is 5 days. Dispense 6 tablet. Refills: 0. Substitution permitted. [facility] [address] [facility] [address] ; [place] [address]. . albuterol sulfate HFA 90 mcg/actuation aerosol inhaler Inhale 2 puff four times a day -- Dispense 8.5 gram. Refills: 0. Substitution permitted. [facility] [phone] - [phone] [facility] [address] ; [place] [address]. . benzonatate 200 mg capsule Take 1 capsule three times a day as needed for 10 days -- Dispense 30 capsule. Refills: 0. Substitution permitted. [address] [facility] Emergency Department [address] [facility], [place] [address] Phone #: ext- [phone] 04/11/2021 11:32 Patient: JAH ZAMORA Sex: M : 1985 Age: 35y Pharmacy - [facility] [phone] [facility] [address] ; [place] [address]. . Follow-up: Follow up with your doctor [...] 19 was first found in people in [facility], in late 2019. In 2020,several cases [...] some cases, this can [address] [facility] Emergency Department [address] [place] [address] Phone #: ext- [phone] 04/11/2021 11:32 Patient: [...] now for any reason [address] [facility] Emergency Department [address] [place] [address] Phone #: ext- [phone] 04/11/2021 11:32 Patient: JAH ZAMORA Sex: M : 1985 Age: 35ythat is not urgent. For the most current CDC travel advisories, visit the CDC website atwww.cdc.gov/coronavirus/2019-ncov/travelers.To help prevent spreading the infection, wash your hands often, or use an alcohol-based hand student services dean.The CDC advises that you shouldn't wear a face mask if you are not sick.To protect yourself from COVID-19: Wash your hands often with soap and clean, running water for at least 20 seconds. If you don't have access to soap and water, use an alcohol-based hand student services dean often. Make sure it has at least 60% alcohol. Don't touch your eyes, nose, or mouth unless you have clean hands. Don't have contact with people who are sick. Follow local instructions about being in public. For example, you may be told to not use public transport for a period of time. [address] [facility] Emergency Department [address] [place] [address] Phone #: ext- [phone] 04/11/2021 11:32 Patient: JAH ZAMORA Sex: M [...] healthcare staff give you. [address] [facility] Emergency Department [address] [place] [address] Phone #: ext- [phone] 04/11/2021 11:32 Patient: [...] with COVID-19 and your symptoms are worse [id number] [employer]. [address] [place] [address], [place] [address]. All rights reserved. This information is not intended as a [address] [facility] Emergency Department [address] [place] [address] Phone #: ext- [phone] 04/11/2021 11:32 Patient: [...] rce(s) Supporting Document(s) ID Date Data Source [id number] 04/11/2021 11:48:[address] [facility] 1 Clinical Report - Nurses [facility] Emergency Department [address] [place] [address] Phone #: ext- [phone] 04/11/2021 11:32 Patient: JAH ZAMORA Sex: M : 1985 Age: 35yTRIAGEArrived by private vehicle. Historian: patient. 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 Acuity: LEVEL 4.Chief Complaint: SORE THROAT and (SOB).11:57 04/11/21.This started last night. No fever, trouble handling secretions, mouth sores, ear pain or sinus pain. Noenlarged lymph nodes or facial pain. 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 SEPSIS SCREEN NEGATIVE. [...] Zoster.Arthritis.Anxiety Reaction. 2 Clinical Report - Nurses [facility] Emergency Department [address] [place] [address] Phone #: ext- [phone] 04/11/2021 11:32 Patient: JAH ZAMORA [facility]#: [id number] Sex: M : 1985 Age: 35y Depression. [...] 2 seconds. 3 Clinical Report - Nurses [facility] Emergency Department [address] [place] [address] Phone #: ext- [phone] 04/11/2021 11:32 Patient: [...] RR: 16. O2 saturation: 94%. --12:06 04/11/21 [facility] 12:42 04/11/2021 Duoneb Neb [place] Nebulizer [...] RR: 18. O2 saturation: 100%. 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 (1320). --13:21 04/11/21 Josué Peng RN 13:16 04/11/2021 Donavon MCCARTHY discontinued upon: receiving physician order. 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 (1328). --13:27 04/11/21 Josué Peng RN.DISPOSITION / DISCHARGE 14:05 04/11/21. BP: 133/85. HR: 103. RR: 16. O2 saturation: 99%. Temp: 98.7 F. Pain level now 7/10. --14:06 04/11/21 [facility] 13:45 04/11/2021 Toradol IM Response: pain is improving. Symptoms have improved the patient feels better. Physician physician office assistant notified. --14:20 04/11/21 Josué Peng RN 4 Clinical Report - Nurses [facility] Emergency Department [address] [place] [address] Phone #: ext- [phone] 04/11/2021 11:32 Patient: JAH ZAMORA Sex: M : 1985 Age: 35y 14:09 04/11/2021 Dexamethasone PO Response: no adverse reaction. Physician physician office assistant notified. --14:19 04/11/21 Josué Peng RN 14:15 04/11/21. Departu re time: 14:15 04/11/2021. Condition at departure: improved. No learning barriers present. Discharge instructions provided and reviewed with the patient. Reviewed medication(s) side effects, precautions, dosing and course information. Prescription(s) sent electronically to pharmacy. Reviewed rest instructions. Reviewed referrals. Provided to follow-up provider. Patient verbalized understanding. Written instructions provided in [place] [employer]. The patient was discharged by the physician physician office assistant. He was discharged home. He left ambulatory and via private vehicle. Patient driving. --14:19 04/11/21 Josué molina RN.Locked/Released at 04/11/2021 14:30 by Josué Peng RN Name Value Range Interpretation Code Description Data Marlene rce(s) Supporting Document(s) ID Date Data Source [id number] 04/11/2021 11:48:[address] [facility] 1 Clinical Report - Physicians/Mid Levels [facility] Emergency Department [address] [place] [address] Phone #: ext- [phone] 04/11/2021 11:32 Patient: [...] upper lungs with deep breathing, pt works [employer] [place], no fever, pt coughing up clear to [...] None. 2 Clinical Report - Physicians/Mid Levels [facility] Emergency Department [address] [place] [address] Phone #: ext- [phone] 04/11/2021 11:32 Patient: [...] 0.00) 3 Clinical Report - Physicians/Mid Levels [facility] Emergency Department [address] [place] [address] Phone #: ext- [phone] 04/11/2021 11:32 Patient: [...] Male GFR Interprentation 20-49 yrs >60 mL/min Bupkmh07-74 yrs >56 mL/min Normal 60-69 yrs >49 mL/min Normal 70-79yrs>42 mL/min Normal 80 and above >35 mL/min Normal Female GFRInterpretation 20-39 yrs >60 mL/min Normal 40-49 yrs >58 mL/minNormal 50-59 yrs >51 mL/min Normal 60-69 yrs >45 mL/min Wrcjpd05-83 yrs >39 mL/min Normal 80 and above [...] (Reference) 4 Clinical Report - Physicians/Mid Levels [facility] Emergency Department [address] [place] [address] Phone #: ext- [phone] 04/11/2021 11:32 Patient: JAH ZAMORA Sex: M : 1985 Age: 35y RAPID STREP NEGATIVE (NORMAL: NEGAT RAPID STREP REENTER NEGATIVE (NORMAL: NEGAT { PROCEDURAL CONTROL VALID ){ KIT LOT # [id number] ){ KIT EXP DATE 07/18/22 )The Strep [...] Medications: 5 Clinical Report - Physicians/Mid [facility] Emergency Department [address] [place] [address] Phone #: ext- [phone] 04/11/2021 11:32 Patient: [id number] Sex: M : 1985 Age: 35y Medrol (Keagan) 4 mg tablets in a dose pack Take 1 tablet as directed for 6 days -- Dispense 21 tablet. Refills: 0. Substitution permitted. Pharmacy - [facility] [address] [facility] [address] [address] ; [place] [address]. Phone: . azithromycin 250 mg tablet -- Take 2 tablets on the first day then one tablet daily for 4 days, total duration is 5 days. Dispense 6 tablet. Refills: 0. Substitution permitted. Pharmacy - [facility] [phone] [facility] [address] ; [place] [address]. . albuterol sulfate HFA 90 mcg/actuation aerosol inhaler Inhale 2 puff four times a day -- Dispense 8.5 gram. Refills: 0. Substitution permitted. Pharmacy - [facility] [address] [facility] [address] ; [place] [address]. . benzonatate 200 mg capsule Take 1 capsule three times a day as needed for 10 days -- Dispense 30 capsule. Refills: 0. Substitution permitted. Pharmacy - [facility] [address] [facility] [address] ; [place] [address]. Phone: . Follow-up: Follow up with your doctor as needed. Reason for referral: evaluation and treatment. Summary of care provided to patient. Understanding of the discharge instructions verbalized by patient.(Electronically signed by ZAFAR De Jesus 04/11/2021 21:32) Name Value Range Interpretation Code Description Data Marlene rce(s) Supporting Document(s) ID Date Data Source [id number] 04/11/2021 03:15:00 PM EDT [facility] [address] [place] [address] PHONE: [phone] FAX: [phone] Name ..............: NOAH TYSON Acct Number ...........................: [id number] ROOM. ............: VT-20 Number ............................: [id number] Stay type.........: E/R Discharge Date...............:04/11/21 Admit Date .....: 04/11/21 Admit Phys .............................: MARIBEL Aiken Date of ..: 1985 Family Phys ...........................: NON STAFF Phone..............: Age.................................:35 Film# ...............:[id number] Sex.................................:M Unsigned transcriptions are preliminary reports and do [place] [id number] COMPLETE:04/11/21 14:22 [facility] [id number] Please See Scanned Results. Name Value Range Interpretation Code Description Data Marlene rce(s) Supporting Document(s) ID Date Data Source [id number] 04/11/2021 02:43:00 [place] [address] PHONE: [phone] FAX: [phone] Name .................. : NOAH TYSON Acct Number.................. : [id number] ROOM. ................. : [address] Number ................... : [id number] Stay type ............. : E/R Discharge Date......... ... : Admit Date ......... : 04/11/21 Admit Phys .................... : MARIBEL Aiken Date of ....... : 1985 Family Phys ................... : NON STAFF Phone .................. : Age ................................ : 35 Film# .................. .:[id number] Sex ................................. : M Unsigned transcriptions are preliminary reports and do not represent a medical or legal document CHEST 2 [id number] COMPLETE:04/11/21 12:21 [id number] Reason(s): Chest Pain FRONTAL AND LATERAL CHEST [...] rce(s) Supporting Document(s) ID Date Data Source [id number] 04/11/2021 01:52:00 PM EDT [facility] Name Value Range Interpretation Code Description Data Marlene rce(s) Supporting Document(s) SARS coronavirus 2 RNA Not Detected [facility] This lab was ordered by [facility] alison and reported by [facility]. ID Date Data Source [id number] 04/12/2021 07:14:[address] [facility] Name Value Range Interpretation Code Description Data Marlene rce(s) Supporting Document(s) SARS-CoV-2, KEVEN Not Detected Not Detected [facility] This nucleic acid amplification test was developed and its performancecharacteristics determined by [facility]. Nucleic acidamplification tests include RT-PCR and [...] assay. SARS-CoV-2, KEVEN 2 DAY TAT Performed [facility] ID Date Data Source [id number] 04/11/2021 01:29:[address] [facility] Name Value Range Interpretation Code Description Data Marlene rce(s) Supporting Document(s) TROPONIN T <0.01 NG/ML 0.00 - 0.10 [facility] TROPONIN T0.1 ng/ml Recommended as the c linical threshold value forTroponin T. ID Date Data Source [id number] 04/11/2021 01:29:[address] [facility] Name Value Range Interpretation Code Description Data Marlene rce(s) Supporting Document(s) COMPREHENSIVE METABOLIC PANEL [facility] COMPREHENSIVE METABOLIC PANEL Sodium [Moles/volume] in Serum or Plasma 142 mEq/L 134 - 153 [facility] Potassium [Moles/volume] in Serum or Plasma 4.4 mEq/L 3.6 - 5.0 [facility] Chloride [Moles/volume] in Serum or Plasma 106 mEq/L 98 - 107 [facility] Carbon dioxide, total [Moles/volume] in Serum or Plasma 25 MEQ/L 22 - 30 [facility] Glucose [Mass/volume] in Serum or Plasma 96 MG/DL 70 - 99 [facility] BUN 17 MG/DL 7 - 21 [facility] Creatinine [Mass/volume] in Serum or Plasma 1.4 MG/DL 0.7 - 1.5 [facility] BUN/CREAT 12 8 - 27 [facility] Protein [Mass/volume] in Serum or Plasma 7.1 G/DL 6.3 - 8.2 [facility] Albumin [Mass/volume] in Serum or Plasma 4.9 G/DL 3.9 - 5.0 [facility] Globulin [Mass/volume] in Serum by calculation 2.2 GM/DL 2.4 - 3.[address] [facility] A/G RATIO 2.2 0.8 - 2.0 [facility] Calcium [Mass/volume] in Serum or Plasma 10.0 MG/DL 8.4 - 10.2 [facility] Bilirubin.total [Mass/volume] in Serum or Plasma <0.7 MG/DL 0.2 - 1.3 [facility] Alkaline phosphatase [Enzymatic activity/volume] in Serum or Plasma 52 U/L 38 - 126 [facility] Aspartate aminotransferase [Enzymatic activity/volume] in Serum or Plasma 14 U/L 5 - 40 [facility] Alanine aminotransferase [Enzymatic activity/volume] in Seru m or Plasma 15 U/L 7 - 56 [facility] Anion gap 3 in Serum or Plasma 11.0 mmol/L 8.0 - 16.0 [facility] AGE 35 yrs [facility] NON-AA GFR >60 mL/min [employer] ital AFR AMER GFR >60 mL/min [facility] Male GFR In terprentation [...] >32 mL/min Normal ID Date Data Source [id number] 04/11/2021 01:05:[address] [facility] Name Value Range Interpretation Code Description Data Marlene rce(s) Supporting Document(s) Influenza virus A Ag [Presence] in Nasopharynx by [facility] y NEGATIVE NORMAL: NEGATIVE [facility] Influenza virus B Ag [Presence] in Nasopharynx by [facility] y NEGATIVE NORMAL: NEGATIVE [facility] NEGATIVENEGATIVE PROCEDURAL CO NTROL VALID KIT LOT [...] other patient managementdecisions. ID Date Data Source [id number] 04/11/2021 01:00:[address] [facility] Name Value Range Interpretation Code Description Data [facility](s) Supporting Document(s) RAPID STREP NEGATIVE NORMAL: NEGATIVE [facility] RAPID STREP REENTER NEGATIVE NORMAL: NEGATIVE [facility] { PROCEDURAL CONTROL VALID ){ KIT LOT # [id number] ){ KIT EXP DATE 07/18/22 )The Strep [...] basis for treatment. ID Date Data Source [id number] 04/11/2021 12:57:[address] [facility] Name Value Range Interpretation Code Description Data [facility] rce(s) Supporting Document(s) CBC W/AUTOMATED DIFF [facility] COMPLETE BLOOD COUNT Leukocytes [#/volume] in Blood by Automated count 8.9 10^3/uL 4.2 - [address] [facility] Erythrocytes [#/volume] in Blood by Automated count 5.50 10^6/uL 4. 50 - 6.30 [facility] Hemoglobin [Mass/volume] in Blood 15.3 g/dL 14.0 - 16.0 [facility] Hematocrit [Volume Fraction] of Blood by Automated count 45.6 % 4 1.0 - 51.0 [facility] Erythrocyte mean corpuscular volume [Entitic volume] by Auto mated count 82.9 fL 80.0 - 94.0 [facility] Erythrocyte mean corpuscular hemoglobin [Entitic mass] by Automated count 27.8 pg 27.0 - 34.0 [facility] Erythrocyte mean corpuscular hemoglobin concentration [Mass/volume] by Automated count 33.6 g/dL 31.0 - 36.0 [facility] Erythrocyte distribution width [Ratio] by Automated count 13.2 % 11.5 - 14.8 [facility] Platelets [#/volume] in Blood by Automated count 254 10^3/uL 150 - [address] [facility] Platelet mean volume [Entitic volume] in Blood by Automated count 10.4 fL 7.4 - 10.4 [facility] Neutrophils/100 leukocytes in Blood by Automated count 33.4 % 37. 0 - 80.[address] [facility] Lymphocytes/100 leukocytes in Blood by Manual count 43.1 % 25.0 - 40.[address] [facility] Monocytes/100 leukocytes in Blood by Automated count 10.8 % 3.0 - 8.[address] [facility] Eosinophils/100 leukocytes in Blood by Automated count 12.0 % 0.0 - 7.[address] [facility] Basophils/100 leukocytes in Blood by Automated count 0.5 % 0.0 - 2.0 [facility] %IG 0.2 % 0.0 - 0.0 H [facility] %NRBC 0.0 % 0.0 - 0.0 [facility] al Neutrophils [#/volume] in Blood by Automated count 2.97 10^3/uL 2.00 - 6.90 [facility] Lymphocytes [#/volume] in Blood by Automated count 3.82 10^3/uL 0.60 - 3.40 [facility] Monocytes [#/volume] in Blood by Automated count 0.96 10^3/uL 0.00 - 0.[address] [facility] Eosinophils [#/volume] in Blood by Automated count 1.06 10^3/uL 0.00 - 0.[address] [facility] Basophils [#/volume] in Blood by Automated count 0.04 10^3/uL 0.00 - 0.20 [facility] #IG 0.02 10^3/uL 0.00 - 0.10 [facility] #NRBC 0.00 10^3/uL 0.00 - 0.00 [facility] MANUAL DIFF NOT INDICATED [facility] RBC MORPH NOT INDICATED [facility] Procedure Social History No Information Vital Signs ID Date Data Source UNK Name Value Range Interpretation Code Description Data Source(s) Systolic blood pressure 136 mm[Hg] 136 mm[Hg] [facility] Diastolic blood pressure 83 mm[Hg] 83 mm[Hg] [facility] ([facility]) Heart rate 69 /min 69 /min [facility] ([facility], [facility]) Respiratory rate 14 /min 14 /min [facility] ( [facility]) Oxygen saturation in Arterial blood by Pulse oximetry 98 % 98 % [facility] ([facility]) Body temperature 97.7 [degF] 97.7 [degF] [facility] ([facility]) Body weight 205.00 [lb_av] 205.00 [lb_av] [facility] ([facility]) Body height 71 [in_i] 71 [in_i] [facility] ([facility]) 5'11" Body mass index (BMI) [Ratio] 28.6 kg/m2 28.6 k g/m2 [facility] ([facility])
[2021-04-27 14:14] LABS: AMPHETAMINES LEVEL URINE NEGATIVE (NEGATIVE); BARBITURATES URINE NEGATIVE (NEGATIVE); BENZODIAZEPINES URINE NEGATIVE (NEGATIVE); CANNABINOIDS URINE NEGATIVE (NEGATIVE); COCAINE METABOLITE URINE NEGATIVE (NEGATIVE); METHADONE URINE NEGATIVE (NEGATIVE); OPIATES URINE NEGATIVE (NEGATIVE); PHENCYCLIDINE URINE NEGATIVE (NEGATIVE)
[2021-04-27 14:28] LABS: ALT/SGPT 46 U/L (12-78); BILIRUBIN,DIRECT 0.2 MG/DL (0.0-0.2); BILIRUBIN,TOTAL 0.7 MG/DL (0.2-1.0); BLOOD UREA NITROGEN 14 MG/DL (7-18); CALCIUM LEVEL 9.1 MG/DL (8.5-10.1); CARBON DIOXIDE LEVEL 27 MEQ/L (21-32); CHLORIDE LEVEL 107 MEQ/L (98-107); CREATININE FOR GFR 1.39 MG/DL (0.70-1.30); GLOMERULAR FILTRATION RATE > 60.0 (>60); GLUCOSE, FASTING 101 MG/DL (70-100); POTASSIUM SERUM 3.5 MEQ/L (3.5-5.1); SALICYLATE LEVEL < 1.7 MG/DL (5.0-30.0); SODIUM LEVEL 139 MEQ/L (136-145); THYROID STIMULATING HORMONE 0.614 uIU/ML (0.358-3.740); TOTAL PROTEIN 7.3 GM/DL (6.4-8.2)
[2021-04-27 14:29] LABS: ACETAMINOPHEN LEVEL < 2.0 UG/ML (10.0-30.0); ETHYL ALCOHOL (ETHANOL) < 0.003 % (0.000-0.010)
[2021-04-27] MEDS ORDERED: GABA-282 PO (17:06)
[2021-04-27] MEDS ORDERED: COMMENTS (17:06)
[2021-04-27] MEDS ORDERED: busPIRone 5 MG TAB PO ONE (19:55)
[2021-04-27] MEDS ORDERED: CYCLOBENZAPRINE 10MG TABLET PO ONE (19:55)
[2021-04-27] MEDS ORDERED: traZODone 100 MG TAB PO ONE (19:55)
[2021-04-27] MEDS ORDERED: GABAPENTIN 300 MG CAP PO ONE (19:55)
--- NOTE | 2021-04-27 20:34 | ECGEPIP ---
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
[2021-04-28] MEDS ORDERED: LEXA1TAB PO (08:23)
[2021-04-28] MEDS ORDERED: BUSP10TA PO (08:23)
[2021-04-28] MEDS ORDERED: TRAZ-252 PO (08:23)
[2021-04-28] MEDS ORDERED: CYCL5TAB PO (08:23)
[2021-04-28] MEDS ORDERED: HOME MED LIST COMPLETE! XX SCH (08:25)
[2021-04-28] MEDS ORDERED: ESCITALOPRAM OXALATE 10 MG TAB (LEXAPRO) PO SCH (09:00)
[2021-04-28] MEDS ORDERED: busPIRone 10 MG TAB PO SCH (09:00)
[2021-04-28] MEDS ORDERED: ESCITALOPRAM OXALATE 10 MG TAB (LEXAPRO) PO ONE (09:00)
[2021-04-28] MEDS ORDERED: busPIRone 10 MG TAB PO ONE (09:00)
[2021-04-28 09:44] LABS: RSV AMPLIFICATION NEGATIVE (NEGATIVE)
[2021-04-28] MEDS ORDERED: MAALOX 30 ML SUSP *UDC PO PRN (18:15)
[2021-04-28] MEDS ORDERED: MOM 30ML SUSPENSION UDC PO PRN (18:15)
[2021-04-28] MEDS ORDERED: ACETAMINOPHEN TAB 650MG DOSE (2X325MG) PO PRN (18:15)
[2021-04-28] MEDS ORDERED: traZODone 50 MG TAB PO PRN (18:15)
--- OUTSIDE RECORDS SUMMARY | 2021-04-28 18:36 | CCD ---
Author Author [facility] Organization [facility] Address Unknown Phone Unavailable Care Team Providers Care Molding Fitter Name Role Phone Betancourt, Yas CUSTOMER ENGAGEMENT SPECIALIST Unavailable Unavailable Betancourt, Yas CUSTOMER ENGAGEMENT SPECIALIST Unavailable Unavailable Betancourt, Yas CUSTOMER ENGAGEMENT SPECIALIST Unavailable Unavailable Betancourt, Yas CUSTOMER ENGAGEMENT SPECIALIST Unavailable Unavailable Betancourt, Yas CUSTOMER ENGAGEMENT SPECIALIST Unavailable Unavailable Betancourt, Yas CUSTOMER ENGAGEMENT SPECIALIST Unavailable Unavailable Betancourt, Yas CUSTOMER ENGAGEMENT SPECIALIST Unavailable Unavailable Betancourt, Yas CUSTOMER ENGAGEMENT SPECIALIST Unavailable Unavailable Betancourt, Yas CUSTOMER ENGAGEMENT SPECIALIST Unavailable Unavailable Betancuort, Yas CUSTOMER ENGAGEMENT SPECIALIST Unavailable Unavailable Betancourt, Yas CUSTOMER ENGAGEMENT SPECIALIST Unavailable Unavailable Betancourt, Yas CUSTOMER ENGAGEMENT SPECIALIST Unavailable Unavailable Betancourt, Yas CUSTOMER ENGAGEMENT SPECIALIST Unavailable Unavailable Didier Palomino MD Unavailable Unavailable Didier Palomino MD Unavailable Unavailable Didier Palomino MD Unavailable Unavailable Didier Palomino MD Unavailable Unavailable Didier Palomino MD Unavailable Unavailable Didier Palomino MD Unavailable Unavailable UNKNOWN, [facility] Unavailable Unavailable Yeimy AMADO MD Unavailable Unavailable [...] is protected by Article 27-F of the [facility] Public Health law. If you continue you may have access to information: Regarding HIV / AIDS; Provided by facilities licensed or operated by the [facility] Office of Mental Health; or Provided by the [facility] Office for People With Developmental Disabilities. If such information is present, then the following [facility] mandated warning applies: This information has [...] law may result in a fine or senior care sentence or both. A general authorization for the release of medical or other information is NOT sufficient authorization for further disc losure. Encounters Encounter Providers Location Date Indications Data Source(s ) Emergency Attender: NASH AMADO MDConsultant: PHIL UNKNOW N 04/18/2021 05:13:00 PM EDT - 04/18/2021 08:09:00 PM EDT [facility] Patient discharged. Emergency Attender: Didier Palomino MDConsultant: STAFF NON 04/11/2021 11:48:00 AM EDT - 04/11/2021 02:20:00 PM EDT [facility] Patient discharged. Outpatient Attender: Yas Boykin adriana 12/28/2020 03:35:00 PM EDT [facility] ([facility], [facility]) Medications Medication Brand Name Start Date Product Form Dose Route Admi nistrative Instructions Pharmacy Instructions Status Indications Reaction Description Data Source(s) Mupirocin 0.02 MG/MG Topical Ointment Mupirocin 12/28/2020 12:00:00 AM EDT active [facility] ([facility], [facility]) Cephalexin 500 MG Oral Tablet Cephalexin 12/28/2020 12:00:00 AM EDT ORAL active [facility] ([facility], [facility]) Ibuprofen 800 MG Oral Tablet Ibuprofen 12/28/2020 12:00:00 AM EDT ORAL active [facility] ([facility], [facility]) Insurance Providers Payer name Policy type / Coverage type Policy ID Covered constitution party ID Covered constitution party's relationship to chavez Policy Chavez Plan Information [facility] ACTIVE DUTY [id number] [facility] HUMANA - O/P [id number] 18 [id number] [facility] HUMANA - O/P [id number] 18 [id number] Problems, Conditions, and Diagnoses Code Display Name Description Problem Type Effective Dates Data Source(s) M99756 Personal history of nicotine dependence Personal history of nicotine dependence Diagnosis 04/18/2021 05:13:00 PM EDT [facility] Z8616 PERSONAL HISTORY OF COVID-19 PERSONAL HISTORY OF COVID -19 Diagnosis 04/18/2021 05:13:00 PM EDT [facility] [id number] CONTACT WITH AND SUSPECTED EXPOSURE TO C OVID-19 CONTACT WITH AND SUSPECTED EXPOSURE TO COVID-19 Diagnosis 04/18/2021 05:13:00 PM EDT [facility] E860 Dehydration Dehydration Diagnosis 04/18/2021 05:13:00 PM EDT [facility] J069 Acute upper respiratory infection, unspe cified Acute upper respiratory infection, unspecified Diagnosis 04/18/2021 05:13:00 PM EDT [facility] R059 Cough, unspecified Cough, unspecified Diagnosis 05:13:00 PM EDT [facility] J40 Bronchitis, not specified as acute or ch ronic Bronchitis, not specified as acute or chronic Diagnosis 04/11/2021 11:48:00 AM EDT [facility] R0600 Dyspnea, unspecified Dyspnea, unspecified Diagnosis 04/11/2021 11:48:00 AM EDT [facility] Surgeries/Procedures Procedure Description Date Indications Data Source(s) OFFICE OUTPATIENT NEW 30 MINUTES 12/28/2020 12:00:[address] [facility], [facility]) Results ID Date Data Source [id number] 04/18/2021 05:13:00 PM EDT [facility] 1 OrderSheet [facility] Emergency Department [address] [place] [address] Phone #: ext- [phone] 04/18/2021 16:46 Patient: [...] Coughlin Norma MD; Oleksandr Coughlin 2 OrderSheet [facility] Emergency Department [address] [place] [address] Phone #: ext- [phone] 04/18/2021 16:46 --------- [...] (X1)DuoNeb 3 mL X2 19:15 04/18/2021 19:27 CdeDoses (Filtered): 6 Nash Amado MD; Sukhwinder (3 mL [id number])GENERAL ORDERSOrder Description Priority Entered Acknowledged Initialed[Electronically signed by Oleksandr Coughlin (20:09 04/18/2021)][Electronically signed by Nash Amado MD (06:33 04/19/2021)][Electronically locked by Oleksandr Coughlin (20:09 04/18/2021)] Name Value Range Interpretation Code Description Data Marlene rce(s) Supporting Document(s) ID Date Data Source [id number] 04/18/2021 05:13:00 PM EDT [facility] 1 Medication Reconciliation Report [facility] Emergency Department [address] [place] [address] Phone #: ext- [phone] 04/18/2021 16:46 Patient: [...] to the patient: 2 Medication Reconciliation Report [facility] Emergency Department [address] [place] [address] Phone #: ext- [phone] 04/18/2021 16:46 Patient: JAH ZAMORA Sex: M : 1985 Age: 35yalbuterol sulfate HFA 90 mcg/actuation aerosol inhaler Inhale 2 puff four times a day as needed for 7 days-- prn wheezing. Dispense 18 gram. Refills: 1. Substitution permitted. Note to Pharmacy - USE RxDISCOUNT CARD: $45.56, BIN:[id number], PCN:ANGELA, Group:[id number], ID:[id number].Pharmacy - [facility] [address] ; [place] [address]. . -- Nash Amado MD Name Value Range Interpretation Code Description Data Marlene rce(s) Supporting Document(s) ID Date Data Source [id number] 04/18/2021 05:13:00 PM EDT [facility] 1 Medication Administration Record [facility] Emergency Department [address] [place] [address] Phone #: ext- [phone] 04/18/2021 16:46 Patient: JAH ZAMORA Sex: M : 1985 Age: 35yWeight: 95.2 kgHeight/Length: 71 inBMI: 29.3ALLERGIES: None Date/Time Medication Administered Medication OrderedStart NS [IV] IV NS 1000 mL Bolus : Bolus 242227:26 04/18/2021 Dose: IV Fluids mL (X1)Oleksandr Coughlin, Bolus: 1000 mL wide open---- Dispensed: 1000 mL bagStop Site: #1 left AC20:00 04/18/2021Oleksandr Coughlin,Start NS [IV] IV NS 1000 mL Bolus : Bolus 476823:11 04/18/2021 Dose: IV Fluids mL (X1)Oleksandr Coughlin, Bolus: 1000 mL wide open---- Dispensed: 1000 mL bagStop Site: #1 left AC20:00 04/18/2021Oleksandr Coughlin,Given DUONEB [NEB TX] DuoNeb 3 mL X2 Doses (Filtered):19:27 04/18/2021 Dose: 2 unit dose Nebulizer Neb TX 6 mL (3 mL X2 Doses)Oleksandr Coughlin,----Stop19:45 04/18/2021Oleksandr Coughlin, Name Value Range Interpretation Code Description Data Marlene rce(s) Supporting Document(s) ID Date Data Source [id number] 04/18/2021 05:13:00 PM EDT [facility] 1 General Instructions [facility] Emergency Department [address] [place] [address] Phone #: ext- [phone] 04/18/2021 16:46 Patient: JHA ZAMORA Sex: M : 1985 Age: 35yMild [...] to Pharmacy - USE RxDISCOUNT CARD: $45.56, BIN:[id number], PCN:ANGELA, Group:[id number], ID:[id number].Pharmacy - [facility] [phone] ; [place] [address]. .Follow-up:Follow up with your doctor Wednesday even if well. Call for an appointment. Reason for referral: evaluation.Summary of care provided to patient via paper.Understanding of the discharge instructions verbalized by patient. 2 General Instructions [facility] Emergency Department [address] [place] [address] Phone #: ext- [phone] 04/18/2021 16:46 Patient: JAH ZAMORA Acc t#: [id number] Sex: M : 1985 Age: 35y ADDITIONAL [...] 100.4F (38C) or higher 3 General Instructions [facility] Emergency Department [address] [place] [address] Phone #: ext- [phone] 04/18/2021 16:46 Patient: JAH ZAMORA Sex: M : 1985 Age: 35yCall 911Call 911 or get medical care right away if you have any of the following: Weakness, dizziness, or fainting Unusual drowsiness or confusion Blood in vomit or stool 1998-8530 [employer] [address] [place] [address]68. All rights reserved. This information is not intended as asubstitute for professional medical care. Always follow your healthcare professional's instructions.Viral Upper Respiratory Illness (Adult) 4 General Instructions [facility] Emergency Department [address] [place] [address] Phone #: ext- [phone] 04/18/2021 16:46 Patient: [...] yourself get too tired. 5 General Instructions [facility] Emergency Department [address] [place] [address] Phone #: ext- [phone] 04/18/2021 16:46 Patient: [...] loosen secretions in the nose and lungs. Sxyf-fxd-pnyzzsu cold medicines will not shorten the length of time you're sick, but they may be helpful for the following symptoms: cough, sore throat, and nasal and sinus congestion. If you take prescription medicines, ask your healthcare provider or pharmacist which medl-dnm-qeosphn medicines are safe to use. (Note: Don't [...] it goes along with a muffled voice [employer]. [address] [place] [address]67. All rights reserved. This information is not intended as a 6 General Instructions [facility] Emergency Department [address] [place] [address] Phone #: ext- [phone] 04/18/2021 16:46 Patient: [...] rce(s) Supporting Document(s) ID Date Data Source [id number] 04/18/2021 05:13:00 PM EDT [facility] 1 Clinical Report - Nurses [facility] Emergency Department [address] [place] [address] Phone #: ext- [phone] 04/18/2021 16:46 Patient: JAH ZAOMRA Sex: M : 1985 Age: 35yTRIAGEArrived by [...] prednisone, was also given tessalon and proair).Treatment SAT MATH TUTOR:(Proair last dose just prior to arrival; Tessalon [...] R.N.PROBLEMS:Arthritis.Anxiety Reaction. 2 Clinical Report - Nurses [facility] Emergency Department [address] [place] [address] Phone #: ext- [phone] 04/18/2021 16:46 Patient: [...] acute distress. 3 Clinical Report - Nurses [facility] Emergency Department [address] [place] [address] Phone #: ext- [phone] 04/18/2021 16:46 Patient: JAH ZAMORA Sex: M [...] Call light 4 Clinical Report - Nurses [facility] Emergency Department [address] [place] [address] Phone #: ext- [phone] 04/18/2021 16:46 Patient: JAH ZAMORA Sex: M [...] Patient verbalized understanding. Written instructions provided in Fijian. No treatment instructions, diet instructions, follow up [...] rce(s) Supporting Document(s) ID Date Data Source [id number] 04/18/2021 05:13:00 PM EDT [facility] 1 Clinical Report - Physicians/Mid Levels [facility] Emergency Department [address] [place] [address] Phone #: ext- [phone] 04/18/2021 16:46 Patient: [...] Oral. 2 Clinical Report - Physicians/Mid Levels [facility] Emergency Department [address] [place] [address] Phone #: ext- [phone] 04/18/2021 16:46 Patient: [...] 36.0) 3 Clinical Report - Physicians/Mid Levels [facility] Emergency Department [address] [place] [address] Phone #: ext- [phone] 04/18/2021 16:46 ------ Patient: JAH ZAMORA Sex: [...] Male GFR Interprentation 20-49 yrs >60 mL/min Tbaogl69-31 yrs >56 mL/min Normal 60-69 yrs >49 mL/min Normal 70-79yrs>42 mL/min Normal 80 and above >35 mL/min Normal Female GFR 4 Clinical Report - Physicians/Mid Levels [facility] Emergency Department [address] [place] [address] Phone #: ext- [phone] 04/18/2021 16:46 Patient: [...] PROCEDURAL CONTROL VALID ){ KIT LOT # [id number] ){ KIT EXP DATE 10.01.21 ) Magnesium: [...] counseled. 5 Clinical Report - Physicians/Mid Levels [facility] Emergency Department [address] [place] [address] Phone #: ext- [phone] 04/18/2021 16:46 Patient: [...] Pharmacy - USE Rx DISCOUNT CARD: $45.56, BIN:[id number], PCN:ANGELA, Group:[id number], ID:[id number]. Pharmacy - [facility] [address] ; [place] [address]. . Follow-up: Follow up with your doctor Wednesday even if well. Call for an appointment. Reason for referral: evaluation. Summary of care provided to patient via paper. Understanding of the discharge instructions verbalized by patient. 6 Clinical Report - Physicians/Mid Levels [facility] Emergency Department [address] [place] [address] Phone #: ext- [phone] 04/18/2021 16:46 Patient: JAH ZAMORA Sex: M : 1985 Age: 35y(Electronically signed by Nash Amado MD 04/19/2021 06:33) Name Value Range Interpretation Code Description Data Marlene rce(s) Supporting Document(s) ID Date Data Source [id number] 04/18/2021 05:13:00 PM EDT [facility] Addenda for JAH ZAMORA VisitID: [id number] Date: 11:28pt informed of negative covid test, pt verbalized understanding(Electronically signed by Valerie Donnelly R.N. - 04/21/2021 11:28) Name Value Range Interpretation Code Description Data Marlene rce(s) Supporting Document(s) ID Date Data Source [id number] 04/19/2021 09:36:00 AM EDT [facility] [address] [place] [address] PHONE: [phone] FAX: [phone] Name .................. : ONAH TYSON Acct Number.................. : [id number] ROOM. ................. : [facility] MR Number ................... : [id number] Stay type ............. : E/R Discharge Date......... ... : 04/18/21 Admit Date ... ...... : 04/18/21 Admit Phys .................... : COONEYNORM Date of ....... : 1985 Family Phys ................... : UNKNOWN BEVERLY Phone .................. : [phone] Age ................................ : 35 Film# .................. .:[id number] Sex ................................. : M Unsigned transcriptions are preliminary reports and do not represent a medical or legal document CHEST PORTABLE [id number] COMPLETE:04/18/21 19:46 MARCIO [id number] Reason(s): Congestion PORTABLE CHEST SINGLE VIEW 6:41 [...] rce(s) Supporting Document(s) ID Date Data Source [id number] 04/18/2021 06:22:00 PM EDT [facility] Name Value Range Interpretation Code Description Data Marlene rce(s) Supporting Document(s) SARS coronavirus 2 RNA Not Detected [facility] by [facility]. ID Date Data Source [id number] 04/21/2021 06:20:00 AM EDT [facility] Name Value Range Interpretation Code Description Data Marlene rce(s) Supporting Document(s) SARS-CoV-2, KEVEN Not Detected Not Detected [facility] This nucleic acid amplification test was developed and its performancecharacteristics determined by [facility]. Nucleic acidamplification tests include RT-PCR and [...] in this assay. ID Date Data Source [id number] 04/18/2021 07:09:00 PM EDT [facility] Name Value Range Interpretation Code Description Data Marlene rce(s) Supporting Document(s) CBC W/AUTOMATED DIFF [facility] COMPLETE BLOOD COUNT Leukocytes [#/volume] in Blood by Automated count 14.1 10^3/uL 4.2 - 11.0 H [facility] Erythrocytes [#/volume] in Blood by Automated count 5.58 10^6/uL 4. 50 - 6.30 [facility] Hemoglobin [Mass/volume] in Blood 15.7 g/dL 14.0 - 16.0 [facility] Hematocrit [Volume Fraction] of Blood by Automated count 47.0 % 4 1.0 - 51.0 [facility] Erythrocyte mean corpuscular volume [Entitic volume] by Auto mated count 84.2 fL 80.0 - 94.0 [facility] Erythrocyte mean corpuscular hemoglobin [Entitic mass] by Automated count 28.1 pg 27.0 - 34.0 [facility] Erythrocyte mean corpuscular hemoglobin concentration [Mass/volume] by Automated count 33.4 g/dL 31.0 - 36.0 [facility] Erythrocyte distribution width [Ratio] by Automated count 13.4 % 11.5 - 14.8 [facility] Platelets [#/volume] in Blood by Automated count 275 10^3/uL 150 - 45 0 [facility] Platelet mean volume [Entitic volume] in Blood by Automated count 10.2 fL 7.4 - 10.4 [facility] Neutrophils/100 leukocytes in Blood by Automated count 53.0 % 37. 0 - 80.0 [facility] Lymphocytes/100 leukocytes in Blood by Manual count 26.5 % 25.0 - 40.0 [facility] Monocytes/100 leukocytes in Blood by Automated count 10.0 % 3.0 - 8.0 H [facility] Eosinophils/100 leukocytes in Blood by Automated count 9.4 % 0.0 - 7.0 H [facility] Basophils/100 leukocytes in Blood by Automated count 0.5 % 0.0 - 2.0 [facility] %IG 0.6 % 0.0 - 0.0 [facility] %NRBC 0.0 % 0.0 - 0.0 [facility] Neutrophils [#/volume] in Blood by Automated count 7.45 10^3/uL 2.00 - 6.90 H [facility] Lymphocytes [#/volume] in Blood by Automated count 3.73 10^3/uL 0.60 - 3.40 H [facility] Monocytes [#/volume] in Blood by Automated count 1.41 10^3/uL 0.00 - 0.90 H [facility] Eosinophils [#/volume] in Blood by Automated count 1.32 10^3/uL 0.00 - 0.70 H [facility] Basophils [#/volume] in Blood by Automated count 0.07 10^3/uL 0.00 - 0.20 [facility] #IG 0.09 10^3/uL 0.00 - 0.10 [facility]ital #NRBC 0.00 10^3/uL 0.00 - 0.00 [facility] MANUAL DIFF SEE BELOW [facility] ital Segmented neutrophils/100 leukocytes in Blood by Manual count 63 % 37 - 80 [facility] %LYMPH 20 % 25 - 40 [facility] %MONO 8 % 3 - 8 [facility] %EOS 9 % 0 - 7 H [facility] RBC MORPH SEE BELOW [facility] { SICKLE CELL (NORMAL: NONE SEEN ) Smudge cells [Presence] in Blood by Light microscopy 1+ NASH L: NONE SEEN A [facility] Platelet adequacy [Presence] in Blood by Light microscopy NORMAL NORMAL: NORMAL [facility] COMMENT: ID Date Data Source [id number] 04/18/2021 07:00:00 PM EDT [facility] Name Value Range Interpretation Code Description Data Marlene rce(s) Supporting Document(s) Influenza virus A Ag [Presence] in Nasopharynx by Immunoassa y NEGATIVE NORMAL: NEGATIVE [facility] Influenza virus B Ag [Presence] in Nasopharynx by Immunoassa y NEGATIVE NORMAL: NEGATIVE [facility] NEGATIVENEGATIVE PROCEDURAL CO NTROL VALID KIT [...] other patient managementdecisions. ID Date Data Source [id number] 04/18/2021 06:53:00 PM EDT [facility] Value Range Interpretation Code Description Data Marlene rce(s) Supporting Document(s) RSV ANTIGEN NEGATIVE NORMAL: NEGATIVE [facility] RSV ANTIGEN REENTER NEGATIVE NORMAL: NEGATIVE [facility] { PROCEDURAL CONTROL VALID ){ KIT LOT # [id number] ){ KIT EXP DATE 10.01.21 ) ID Date Data Source [id number] 04/18/2021 06:51:00 PM EDT [facility] Name Value Range Interpretation Code Description Data Marlene rce(s) Supporting Document(s) COMPREHENSIVE METABOLIC PANEL [facility] COMPREHENSIVE METABOLIC PANEL Sodium [Moles/volume] in Serum or Plasma 139 mEq/L 134 - 153 [facility] Potassium [Moles/volume] in Serum or Plasma 4.2 mEq/L 3.6 - 5.0 [facility] Chloride [Moles/volume] in Serum or Plasma 105 mEq/L 98 - 107 [facility] Carbon dioxide, total [Moles/volume] in Serum or Plasma 24 MEQ/L 22 - 30 [facility] Glucose [Mass/volume] in Serum or Plasma 136 MG/DL 70 - 99 H [facility] BUN 11 MG/DL 7 - 21 [facility] Creatinine [Mass/volume] in Serum or Plasma 1.1 MG/DL 0.7 - 1.5 [facility] BUN/CREAT 10 8 - 27 [facility] Protein [Mass/volume] in Serum or Plasma 7.1 G/DL 6.3 - 8.2 [facility] Albumin [Mass/volume] in Serum or Plasma 4.5 G/DL 3.9 - 5.0 [facility] Globulin [Mass/volume] in Serum by calculation 2.6 GM/DL 2.4 - 3.2 [facility] A/G RATIO 1.7 0.8 - 2.0 [facility] Calcium [Mass/volume] in Serum or Plasma 9.0 MG/DL 8.4 - 10.2 [facility] Bilirubin.total [Mass/volume] in Serum or Plasma <0.7 MG/DL 0.2 - 1.3 [facility] Alkaline phosphatase [Enzymatic activity/volume] in Serum or Plasma 55 U/L 38 - 126 [facility] Aspartate aminotransferase [Enzymatic activity/volume] in Serum or Plasma 13 U/L 5 - 40 [facility] Alanine aminotransferase [Enzymatic activity/volume] in Seru m or Plasma 20 U/L 7 - 56 [facility] Anion gap 3 in Serum or Plasma 10.0 mmol/L 8.0 - 16.0 [facility] AGE 35 yrs [facility] al NON-AA GFR >60 mL/min [facility] ital AFR AMER GFR >60 mL/min [facility] Ho spital Male GFR In terprentation 20-49 [...] >32 mL/min Normal ID Date Data Source [id number] 04/18/2021 06:51:00 PM EDT [facility] Name Value Range Interpretation Code Description Data Marlene rce(s) Supporting Document(s) Magnesium [Mass/volume] in Serum or Plasma 2.0 MG/DL 1.7 - 2.2 [facility] ID Date Data Source [id number] 04/18/2021 06:42:00 PM EDT [facility] Name Value Range Interpretation Code Description Data Marlene rce(s) Supporting Document(s) Lactate [Moles/volume] in Serum or Plasma 2.5 MMOL/L 0.2 - 2.2 H [facility] ID Date Data Source [id number] 04/11/2021 11:48:00 AM EDT [facility] 1 OrderSheet [facility] Emergency Department [address] [place] [address] Phone #: ext- [phone] 04/11/2021 11:32 Patient: JAH ZAMORA Sex: M : 1985 Age: 35yWEIGHT:95.2 kg (S) HEIGHT:71 inches (S) BMI:29.3ALLERGIES: NoneCHIEF COMPLAINT: chest pain, dyspneaDIAGNOSIS: Severe acute respiratory syndrome coronavirusLAB ORDERSOrder Description Priority Entered Acknowledged InitialedCBC w Diff STAT 12:21 12:27 Jsoué STEPHEN;CMP STAT 12:21 04/11/2021 12:27 Josué Peng [...] STAT 12:21 04/11/2021 12:27 Josué 2 OrderSheet [facility] Emergency Department [address] [place] [address] Phone #: ext- [phone] 04/11/2021 11:32 Patient: [...] Peng RN PA;Blood Pressure 12:04/11/2021 12:27 Jackonityefri STEPHEN;Machine Etcher 12:04/11/2021 12:27 Josué(continuous) Bry Peng RN PA;Pulse oximeter 12:04/11/2021 12:27 Josué(Continuous) Bry STEPHEN;Vitals 12:04/11/2021 12:27 Josué STEPHEN;[Electronically signed by Josué ePng RN (14:30 04/11/2021)][Electronically signed by Bry Joseph (21:32 04/11/2021)][Electronically locked by Josué Peng RN (14:30 04/11/2021)] Name Value Range Interpretation Code Description Data Marlene rce(s) Supporting Document(s) ID Date Data Source [id number] 04/11/2021 11:48:00 AM EDT [facility] 1 Medication Reconciliation Report [facility] Emergency Department [address] [place] [address] Phone #: ext- [phone] 04/11/2021 11:32 Patient: [id number] Sex: M : 1985 Age: 35yWeight: 95.2 [...] Dispense 21 tablet.Refills: 0. Substitution permitted.Pharmacy - [facility] [phone] ; [place] [address]. FaxNumber: [phone]. 2 Medication Reconciliation Report [facility] Emergency Department [address] [place] [address] Phone #: ext- [phone] 04/11/2021 11:32 Patient: JAH ZAMORA Sex: M : 1985 Age: 35yazithromycin 250 mg tablet -- Take 2 tablets on the first day then one tablet daily for 4 days, totalduration is 5 days. Dispense 6 tablet. Refills: 0. Substitution permitted.Pharmacy - [facility] [id number] ; [place] [address]. FaxNumber: [phone].albuterol sulfate HFA 90 mcg/actuation aerosol inhaler Inhale 2 puff four times a day -- Dispense 8.5gram. Refills: 0. Substitution permitted.Pharmacy - [facility] [phone] ; [place] [address]. Phone: .benzonatate 200 mg capsule Take 1 capsule three times a day as needed for 10 days -- Dispense 30capsule. Refills: 0. Substitution permitted.Pharmacy - [facility] [phone] ; [place] [address]. . -- ZAFAR De Jesus Name Value Range Interpretation Code Description Data Marlene rce(s) Supporting Document(s) ID Date Data Source [id number] 04/11/2021 11:48:00 AM EDT [place] [address] Medication Administration Record [facility] Emergency Department [address] [place] [address] Phone #: ext- [phone] 04/11/2021 11:32 Patient: [...] rce(s) Supporting Document(s) ID Date Data Source [id number] 04/11/2021 11:48:00 AM EDT [facility] 1 General Instructions [facility] Emergency Department [address] [place] [address] Phone #: ext- [phone] 04/11/2021 11:32 [facility]: [id number] Sex[facility] M : 1985 Age: 35y Coronavirus [...] tablet. Refills: 0. Substitution permitted. Pharmacy - [facility] [address] ; [place] [address]. . azithromycin 250 mg tablet -- Take 2 tablets on the first day then one tablet daily for 4 days, total duration is 5 days. Dispense 6 tablet. Refills: 0. Substitution permitted. [facility] - [facility] [address] ; [place] [address]. . albuterol sulfate HFA 90 mcg/actuation aerosol inhaler Inhale 2 puff four times a day -- Dispense 8.5 gram. Refills: 0. Substitution permitted. [facility] - [facility] [phone] ; [place] [address]. . benzonatate 200 mg capsule Take 1 capsule three times a day as needed for 10 days -- Dispense 30 capsule. Refills: 0. Substitution permitted. 2 General Instructions [facility] Emergency Department [address], [place] [address] Phone #: ext- [phone] 04/11/2021 11:32 Patient: JAH ZAMORA Sex: M : 1985 Age: 35y Pharmacy - [facility] [phone] ; [place] [address]. . Follow-up: Follow up with your doctor [...] 19 was first found in people in [facility], in late 2019. In 2020,several cases of [...] some cases, this can 3 General Instructions [facility] Emergency Department [address] [place] [address] Phone #: ext- [phone] 04/11/2021 11:32 Patient: [...] now for any reason 4 General Instructions [facility] Emergency Department [address] [place] [address] Phone #: ext- [phone] 04/11/2021 11:32 Patient: JAH ZAMORA Sex: M : 1985 Age: 35ythat is not urgent. For the most current CDC travel advisories, visit the CDC website atwww.cdc.gov/coronavirus/2019-ncov/travelers.To help prevent spreading the infection, wash your hands often, or use an alcohol-based hand engineering intern.The CDC advises that you shouldn't wear a face mask if you are not sick.To protect yourself from COVID-19: Wash your hands often with soap and clean, running water for at least 20 seconds. If you don't have access to soap and water, use an alcohol-based hand engineering intern often. Make sure it has at least 60% alcohol. Don't touch your eyes, nose, or mouth unless you have clean hands. Don't have contact with people who are sick. Follow local instructions about being in public. For example, you may be told to not use public transport for a period of time. 5 General Instructions [facility] Emergency Department [address] [place] [address] Phone #: ext- [phone] 04/11/2021 11:32 Patient: JAH ZAMORA Sex: M [...] healthcare staff give you. 6 General Instructions [facility] Emergency Department [address] [place] [address] Phone #: ext- [phone] 04/11/2021 11:32 Patient: [...] with COVID-19 and your symptoms are worse [id number] [employer] [address] [place] [address], [place] [address]. All rights reserved. This information is not intended as a 7 General Instructions [facility] Emergency Department [address] [place] [address] Phone #: ext- [phone] 04/11/2021 11:32 Patient: [...] rce(s) Supporting Document(s) ID Date Data Source [id number] 04/11/2021 11:48:00 AM EDT [facility] 1 Clinical Report - Nurses [facility] Emergency Department [address] [place] [address] Phone #: ext- [phone] 04/11/2021 11:32 Patient: JAH ZAMORA Sex: M : 1985 Age: 35yTRIAGEArrived by private vehicle. Historian: patient. ( last night started with sore throat and chest congestionwith pain in both lower lungs and both upper lungs with deep breathing, pt works [employer] on [place],no fever, pt coughing up clear to yellow phlegm).Triage time: 11:40 04/11/2021. Acuity: LEVEL 4.Chief Complaint: SORE THROAT and (SOB).11:57 04/11/21.This started last night. No fever, trouble handling secretions, mouth sores, ear pain or sinus pain. Noenlarged lymph nodes or facial pain. 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 SEPSIS SCREEN NEGATIVE. [...] Zoster.Arthritis.Anxiety Reaction. 2 Clinical Report - Nurses [facility] Emergency Department [address] [place] [address] Phone #: ext- [phone] 04/11/2021 11:32 Patient: JAH ZAMORA [facility]#: [id number] Sex: M : 1985 Age: 35y Depression. [...] 2 seconds. 3 Clinical Report - Nurses [facility] Emergency Department [address] [place] [address] Phone #: ext- [phone] 04/11/2021 11:32 Patient: [...] RR: 16. O2 saturation: 94%. --12:06 04/11/21 [facility] 12:42 04/11/2021 Duoneb Neb TX Nebulizer [...] RR: 18. O2 saturation: 100%. --13:09 04/11/21 [facility] Patient transported to radiology by wheelchair with mask and special procedures technologist. (1320). --13:21 04/11/21 Josué Peng RN 13:16 04/11/2021 Donavon MCCARTHY discontinued upon: receiving physician order. --13:21 04/11/21 Josué Peng RN Patient returned from radiology by wheelchair with mask and special procedures technologist. (1328). --13:27 04/11/21 Josué Peng RN.DISPOSITION / DISCHARGE 14:05 04/11/21. BP: 133/85. HR: 103. RR: 16. O2 saturation: 99%. Temp: 98.7 F. Pain level now 7/10. --14:06 04/11/21 [facility] 13:45 04/11/2021 Toradol IM Response: pain is improving. Symptoms have improved the patient feels better. Physician nurses medical assistants phlebotomists notified. --14:20 04/11/21 Josué Peng RN 4 Clinical Report - Nurses [facility] Emergency Department [address] [place] [address] Phone #: ext- [phone] 04/11/2021 11:32 Patient: JAH ZAMORA Sex: M : 1985 Age: 35y 14:09 04/11/2021 Dexamethasone PO Response: no adverse reaction. Physician nurses medical assistants phlebotomists notified. --14:19 04/11/21 Josué Peng RN 14:15 04/11/21. Departu re time: 14:15 04/11/2021. Condition at departure: improved. No learning barriers present. Discharge instructions provided and reviewed with the patient. Reviewed medication(s) side effects, precautions, dosing and course information. Prescription(s) sent electronically to pharmacy. Reviewed rest instructions. Reviewed referrals. Provided to follow-up provider. Patient verbalized understanding. Written instructions provided in Fijian. The patient was discharged by the physician nurses medical assistants phlebotomists. He was discharged home. He left ambulatory and via private vehicle. Patient driving. --14:19 04/11/21 Josué molina RN.Locked/Released at 04/11/2021 14:30 by Josué Peng RN Name Value Range Interpretation Code Description Data Marlene rce(s) Supporting Document(s) ID Date Data Source [id number] 04/11/2021 11:48:00 AM EDT [facility] 1 Clinical Report - Physicians/Mid Levels [facility] Emergency Department [address] [place] [address] Phone #: ext- [phone] 04/11/2021 11:32 Patient: [...] upper lungs with deep breathing, pt works [employer] on [place], no fever, pt coughing up clear to [...] None. 2 Clinical Report - Physicians/Mid Levels [facility] Emergency Department [address] [place] [address] Phone #: ext- [phone] 04/11/2021 11:32 Patient: [...] 0.00) 3 Clinical Report - Physicians/Mid Levels [facility] Emergency Department [address] [place] [address] Phone #: ext- [phone] 04/11/2021 11:32 Patient: [...] Male GFR Interprentation 20-49 yrs >60 mL/min Lcwcdd40-50 yrs >56 mL/min Normal 60-69 yrs >49 mL/min Normal 70-79yrs>42 mL/min Normal 80 and above >35 mL/min Normal Female GFRInterpretation 20-39 yrs >60 mL/min Normal 40-49 yrs >58 mL/minNormal 50-59 yrs >51 mL/min Normal 60-69 yrs >45 mL/min Gvxfdf36-55 yrs >39 mL/min Normal 80 and above >32 mL/min NormalTroponin-T: (CHEN: 04/11/2021 12:42) ( [facility] 04/11/2021 13:29) Final results Test Result Flag Units (Reference) TROPONIN T <0.01 NG/ML (0.00 - 0.10) TROPONIN T0.1 ng/ml Recommended as the clinical threshold value forTroponin T.Influenza Nasal A B: (CHEN: 04/11/2021 12:42) ( [facility] 04/11/2021 13:06) Final results Test Result Flag [...] (Reference) 4 Clinical Report - Physicians/Mid Levels [facility] Emergency Department [address] [place] [address] Phone #: ext- [phone] 04/11/2021 11:32 Patient: JAH ZAMORA Sex: M : 1985 Age: 35y RAPID STREP NEGATIVE (NORMAL: NEGAT RAPID STREP REENTER NEGATIVE (NORMAL: NEGAT { PROCEDURAL CONTROL VALID ){ KIT LOT # [id number] ){ KIT EXP DATE 07/18/22 )The Strep [...] Prescription Medications: 5 Clinical Report - Physicians/[facility] Emergency Department [address] [place] [address] Phone #: ext- [phone] 04/11/2021 11:32 Patient: [id number] Sex: M : 1985 Age: 35y Medrol (Keagan) 4 mg tablets in a dose pack Take 1 tablet as directed for 6 days -- Dispense 21 tablet. Refills: 0. Substitution permitted. Pharmacy - [facility] [address] ; [place] [address]. Phone: . azithromycin 250 mg tablet -- Take 2 tablets on the first day then one tablet daily for 4 days, total duration is 5 days. Dispense 6 tablet. Refills: 0. Substitution permitted. Pharmacy - [facility] [phone] ; [place] [address]. . albuterol sulfate HFA 90 mcg/actuation aerosol inhaler Inhale 2 puff four times a day -- Dispense 8.5 gram. Refills: 0. Substitution permitted. Pharmacy - [facility] [address] ; [place] [address]. . benzonatate 200 mg capsule Take 1 capsule three times a day as needed for 10 days -- Dispense 30 capsule. Refills: 0. Substitution permitted. Pharmacy - [facility] [address] ; [place] [address]. Phone: . Follow-up: Follow up with your doctor as needed. Reason for referral: evaluation and treatment. Summary of care provided to patient. Understanding of the discharge instructions verbalized by patient.(Electronically signed by ZAFAR De Jesus 04/11/2021 21:32) Name Value Range Interpretation Code Description Data Marlene rce(s) Supporting Document(s) ID Date Data Source [id number] 04/11/2021 03:15:00 PM EDT [facility] [address] [place] [address] PHONE: [phone] FAX: [phone] Name ..............: ONAH TYSON Acct Number ...........................: [id number] ROOM. ............: VT-20 Number ............................: [id number] Stay type.........: E/R Discharge Date...............:04/11/21 Admit Date .....: 04/11/21 Admit Phys .............................: MARIBEL Aiken Date of ..: 1985 Family Phys ...........................: NON STAFF Phone..............: Age.................................:35 Film# ...............:[id number] Sex.................................:M Unsigned transcriptions are preliminary reports and do [place] represent [place] [id number] COMPLETE:04/11/21 14:22 [facility] [id number] Please See Scanned Results. Name Value Range Interpretation Code Description Data Marlene rce(s) Supporting Document(s) ID Date Data Source [id number] 04/11/2021 02:43:00 [place] [address] PHONE: [phone] FAX: [phone] Name .................. : NOAH TYSON Acct Number.................. : [id number] ROOM. ................. : [address] Number ................... : [id number] Stay type ............. : E/R Discharge Date......... ... : Admit Date ......... : 04/11/21 Admit Phys .................... : MARIBEL Aiken Date of ....... : 1985 Family Phys ................... : NON STAFF Phone .................. : Age ................................ : 35 Film# .................. .:[id number] Sex ................................. : M Unsigned transcriptions are preliminary reports and do not represent a medical or legal document CHEST 2 VIEWS [id number] COMPLETE:04/11/21 12:21 [id number] Reason(s): Chest Pain FRONTAL AND LATERAL CHEST [...] rce(s) Supporting Document(s) ID Date Data Source [id number] 04/11/2021 01:52:00 PM EDT [facility] Name Value Range Interpretation Code Description Data Marlene rce(s) Supporting Document(s) SARS coronavirus 2 RNA Not Detected [facility] This lab was ordered by [facility] alison and reported by [employer]. ID Date Data Source [id number] 04/12/2021 07:14:00 PM EDT [facility] Name Value Range Interpretation Code Description Data Marlene rce(s) Supporting Document(s) SARS-CoV-2, KEVEN Not Detected Not Detected [facility] This nucleic acid amplification test was developed and its performancecharacteristics determined by [facility]. Nucleic acidamplification tests include RT-PCR and [...] assay. SARS-CoV-2, KEVEN 2 DAY TAT Performed [facility] ID Date Data Source [id number] 04/11/2021 01:29:00 PM EDT [facility] Name Value Range Interpretation Code Description Data Marlene rce(s) Supporting Document(s) TROPONIN T <0.01 NG/ML 0.00 - 0.10 [facility] o[facility]ital TROPONIN T0.1 ng/ml Recommended as the c linical threshold value forTroponin T. ID Date Data Source [id number] 04/11/2021 01:29:00 PM EDT [facility] Name Value Range Interpretation Code Description Data Marlene rce(s) Supporting Document(s) COMPREHENSIVE METABOLIC PANEL [facility] COMPREHENSIVE METABOLIC PANEL Sodium [Moles/volume] in Serum or Plasma 142 mEq/L 134 - 153 [facility] Potassium [Moles/volume] in Serum or Plasma 4.4 mEq/L 3.6 - 5.0 [facility] Chloride [Moles/volume] in Serum or Plasma 106 mEq/L 98 - 107 [facility] Carbon dioxide, total [Moles/volume] in Serum or Plasma 25 MEQ/L 22 - 30 [facility] Glucose [Mass/volume] in Serum or Plasma 96 MG/DL 70 - 99 [facility] BUN 17 MG/DL 7 - 21 [facility] al Creatinine [Mass/volume] in Serum or Plasma 1.4 MG/DL 0.7 - 1.5 [facility] BUN/CREAT 12 8 - 27 [facility] al Protein [Mass/volume] in Serum or Plasma 7.1 G/DL 6.3 - 8.2 [facility] Albumin [Mass/volume] in Serum or Plasma 4.9 G/DL 3.9 - 5.0 [facility] Globulin [Mass/volume] in Serum by calculation 2.2 GM/DL 2.4 - 3.2 L [facility] A/G RATIO 2.2 0.8 - 2.0 H [facility] Calcium [Mass/volume] in Serum or Plasma 10.0 MG/DL 8.4 - 10.2 [facility] Bilirubin.total [Mass/volume] in Serum or Plasma <0.7 MG/DL 0.2 - 1.3 [facility] Alkaline phosphatase [Enzymatic activity/volume] in Serum or Plasma 52 U/L 38 - 126 [facility] Aspartate aminotransferase [Enzymatic activity/volume] in Serum or Plasma 14 U/L 5 - 40 [facility] Alanine aminotransferase [Enzymatic activity/volume] in Seru m or Plasma 15 U/L 7 - 56 [facility] Anion gap 3 in Serum or Plasma 11.0 mmol/L 8.0 - 16.0 [facility] AGE 35 yrs [facility] al NON-AA GFR >60 mL/min [facility] ital AFR AMER GFR >60 mL/min [facility] Ho spital Male GFR In terprentation 20-49 [...] >32 mL/min Normal ID Date Data Source [id number] 04/11/2021 01:05:00 PM EDT [facility] Name Value Range Interpretation Code Description Data Marlene rce(s) Supporting Document(s) Influenza virus A Ag [Presence] in Nasopharynx by Immunoassa y NEGATIVE NORMAL: NEGATIVE [facility] Influenza virus B Ag [Presence] in Nasopharynx by Immunoassa y NEGATIVE NORMAL: NEGATIVE [facility] NEGATIVENEGATIVE PROCEDURAL CO NTROL VALID KIT [...] other patient managementdecisions. ID Date Data Source [id number] 04/11/2021 01:00:00 PM EDT [facility] Name Value Range Interpretation Code Description Data [facility] Supporting Document(s) RAPID STREP NEGATIVE NORMAL: NEGATIVE [facility] RAPID STREP REENTER NEGATIVE NORMAL: NEGATIVE [facility] { PROCEDURAL CONTROL VALID ){ KIT LOT # [id number] ){ KIT EXP DATE 07/18/22 )The Strep [...] basis for treatment. ID Date Data Source [id number] 04/11/2021 12:57:00 PM EDT [facility] Name Value Range Interpretation Code Description Data [facility] rce(s) Supporting Document(s) CBC W/AUTOMATED DIFF [facility] COMPLETE BLOOD COUNT Leukocytes [#/volume] in Blood by Automated count 8.9 10^3/uL 4.2 - 1 1.0 [facility] Erythrocytes [#/volume] in Blood by Automated count 5.50 10^6/uL 4. 50 - 6.30 [facility] Hemoglobin [Mass/volume] in Blood 15.3 g/dL 14.0 - 16.0 [facility] Hematocrit [Volume Fraction] of Blood by Automated count 45.6 % 4 1.0 - 51.0 [facility] Erythrocyte mean corpuscular volume [Entitic volume] by Auto mated count 82.9 fL 80.0 - 94.0 [facility] Erythrocyte mean corpuscular hemoglobin [Entitic mass] by Automated count 27.8 pg 27.0 - 34.0 [facility] Erythrocyte mean corpuscular hemoglobin concentration [Mass/volume] by Automated count 33.6 g/dL 31.0 - 36.0 [facility] Erythrocyte distribution width [Ratio] by Automated count 13.2 % 11.5 - 14.8 [facility] Platelets [#/volume] in Blood by Automated count 254 10^3/uL 150 - 45 0 [facility] Platelet mean volume [Entitic volume] in Blood by Automated count 10.4 fL 7.4 - 10.4 [facility] Neutrophils/100 leukocytes in Blood by Automated count 33.4 % 37. 0 - 80.0 L [facility] Lymphocytes/100 leukocytes in Blood by Manual count 43.1 % 25.0 - 40.0 H [facility] Monocytes/100 leukocytes in Blood by Automated count 10.8 % 3.0 - 8.0 H [facility] Eosinophils/100 leukocytes in Blood by Automated count 12.0 % 0.0 - 7.0 H [facility] Basophils/100 leukocytes in Blood by Automated count 0.5 % 0.0 - 2.0 [facility] %IG 0.2 % 0.0 - 0.0 [facility] %NRBC 0.0 % 0.0 - 0.0 [facility] al Neutrophils [#/volume] in Blood by Automated count 2.97 10^3/uL 2.00 - 6.90 [facility] Lymphocytes [#/volume] in Blood by Automated count 3.82 10^3/uL 0.60 - 3.40 H [facility] Monocytes [#/volume] in Blood by Automated count 0.96 10^3/uL 0.00 - 0.90 H [facility] Eosinophils [#/volume] in Blood by Automated count 1.06 10^3/uL 0.00 - 0.70 H [facility] Basophils [#/volume] in Blood by Automated count 0.04 10^3/uL 0.00 - 0.20 [facility] #IG 0.02 10^3/uL 0.00 - 0.10 [facility] ospital #NRBC 0.00 10^3/uL 0.00 - 0.00 [facility] MANUAL DIFF NOT INDICATED [facility] RBC MORPH NOT INDICATED [facility] Ho spital Procedure Social History No Information Vital Signs ID Date Data Source UNK Name Value Range Interpretation Code Description Data Source(s) Systolic blood pressure 136 mm[Hg] 136 mm[Hg] [facility] Diastolic blood pressure 83 mm[Hg] 83 mm[Hg] [facility] ([facility]) Heart rate 69 /min 69 /min [facility] ([facility]) Respiratory rate 14 /min 14 /min [facility] ( [facility]) Oxygen saturation in Arterial blood by Pulse oximetry 98 % 98 % [facility] ([facility]) Body temperature 97.7 [degF] 97.7 [degF] [facility] ([facility]) Body weight 205.00 [lb_av] 205.00 [lb_av] [facility] ([facility]) Body height 71 [in_i] 71 [in_i] [facility] ([facility]) 5'11" Body mass index (BMI) [Ratio] 28.6 kg/m2 28.6 k g/m2 [facility] ([facility])
[2021-04-28 21:23] VITALS: BP 140/83
[2021-04-28] MEDS: busPIRone 10 MG TAB PO SCH (21:28)
[2021-04-29 06:06] VITALS: BP 148/98
[2021-04-29] MEDS: busPIRone 10 MG TAB PO SCH ×2 (08:22→20:00)
[2021-04-29] MEDS ORDERED: ESCITALOPRAM OXALATE 10 MG TAB (LEXAPRO) PO SCH (09:00)
--- NOTE | 2021-04-29 12:42 | MHHPEPDOC ---
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 He reports that he is been stressed over sandra ling with poor advocacy for his mental health and feels that he hasn't been heard for his need to care for his wellbeing. Reports that he feels safe he has been ignoring his depression since 2014. His first appointment to [facility] was in 2008, where he was evaluated for a TBI, thereafter he was seeing behavioral health on a regular basis with States that he acknowledged his depression in 2014, was dealing with anxiety for longer. He acknowledges that he has been ignoring PTSD symptoms that subsequently is affecting his physical health. He reports fleeting suicidal ideations wanting to go to sleep and not wake up, also having intense feelings of anger towards his chain of command. Since states that he feels frustrated over the lack of attention to his physical limitations and inability to perform some of the job limitations due to his "profile". He is being medically chaptered out of the . He reports that initially this was very upsetting to him as he had been working on a promotion in getting college credits in order to do this. Before he was allowed to go for this promotion his chain of command told him that he would be medically released from the due to the PTSD and mental and physical issues. Per ED report Pt self-presents to the ED reporting increased depression and anxiety, s/i no plan, and denies h/i but admits that he has thoughts of causing others physical harm. Pt reports he sees [facility] regularly, and has recently been informed that he will be medically released from the due to PTSD and other mental health issues. 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 Pt reports his PTSD is from his 3 previous deployments and has contributed immensely to pt.s stressors, depression, anxiety, and overall poor mental health. Pt reports he's had poor appetite and finds it difficult to fall asleep. He reports decreased motivation, poor energy, lack of interest and enjoyment, chronic fatigue and pain. Pt reports he sees a therapist and med provider through OP and states he is compliant with treatment and medications, and denies any substance abuse. Pt reports that he has no Hx of suicide attempts or gestures in his past, but he does report having thoughts. Pt reports he sometimes "feels like giving up and would anyone really care?" He states he's had times where he feels like he may be "better off gone" or wishing he could be or fall asleep and not wake up, but he reports he has no plan on how he would harm himself, no intention on harming himself, and has never had more than just thoughts that he would never actually follow through on. Pt also reports he has had some thoughts of causing physical harm to specific leaders of his unit in the , but reports he was not actually homicidal towards them. He also reports he had no thoughts of specific methods on how he would harm anyone, no specific plan, and no intention on acting through on anything in this aspect either. Pt reports being here in the ED has helped him immensely, as he has let his thoughts and feelings "bottle up" without talking about them, and was not in a good place because of this. However, since talking through his problems with TW and additionally ED staff, pt. reports that he is feeling much better and is able to CFS. Pt. states coming in was the correct choice for him because his OP was not available for him until tomorrow morning and he needed to talk before them. Pt reports "I came in today because I was feeling like giving up. If I hadn't come in I still wouldnt be feeling well and could have gotten into a physical fight or ended up beating someone up, but since i feel better and talke d about everything that wont' happen." Pt is advocating to be discharged home, reporting he is safe and can contract for this. He also reports he resides with his whom is supportive and will not leave him alone. Pt reports he also has mental health appointments scheduled tomorrow and states he would be able to go to [facility] at 8am to follow up from today's visit. Pt has no weapons in the home and was able to assist TW with coming up with a safety plan for a potential safe discharge this evening. Psychiatric Review of Systems Depression (2 or more weeks): depressed mood, anhedonia, insomnia/hypersomnia, feelings of excess/guilt, feelings of worthlesness, difficulty concentrating (poor memory issues), appetite changes (fluctuates ), psychomotor changes (slowed down), suicidal thoughts, other (hopelessness and helplessness) Mary (4 or more days of): denies Psychosis: denies PTSD: history of trauma, nightmares and flashbacks, intrusive memories, avoidance of triggers, other (panic attacks) Anxiety: gen/non-specific anxiety, situational anxiety, stressor related anxiety, panic attacks Anxiety/ 6 months or more of: easily fatigued, difficulty concentrating, muscle tension, sleep disturbance Past Psychiatric History Previous Psychiatric Diagnosis: Anxiety, PTSD, Depression Previous Psychiatric Admissions: None Suicide Attempts: Ideations only Psychiatric Follow-up: Behavioral health on post Psychiatric medications:Lexapro 10 mg trazodone 50 mg. Past Medical History Medical Problems chronic pain -everywhere chronic fatigue sleep issues No REM 7.15 of light sleep Has bilateral knee pain, chronic back pain, chronic shoulder pain, chronic back pain PT regular Chiropractor x 3 week Yoga x 2 weeks favors right side CBT for PTSD Pain Management - Combat acupuncture Allergies: No known drug allergies Head Injury: Yes Seizures: No Hospitalizations: No Surgeries: Yes (surgery as baby - unknown) Family Medical/Psychiatric HX Medical Problems Maternal Grandmother - Breast Cancer - Mother - Fibromyalgia Psychiatric Disorders: No Addiction: Yes (paternal grandfather - ETOH and smoker) Suicide Attemps/Completions: No Addiction History nicotine (history of smoking, quit smoking x 3 weeks ago), alcohol (history) Social History Childhood: Born [place], [place]. Grew up in [place]. Had both parents growing up. Was independent child. 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 Joined [employer] in 2007 (22 years old) Abuse/Trauma: PTSD from deployments Current Living Situation: Living with and 2 dogs. 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 Social Support: Legal: None Marital: , has a daughter but daughter lives with mother Mental Status Examination General Appearance: well groomed, appears stated age, hospital scubs/clothing Build: overweight, tall Demeanor: average Eye Contact: average Activity: average Behavior: cooperative Speech: clear, reg/rate,rhythm,volume Mood: depressed Affect: flat Thought Process: logical/linear Thought Content (Delusions): none reported Thought Content (Other): none reported Thought Content (Aggressive): none reported Perception (Hallucinations): none reported Perception (Other): none reported Cognition (Impairment of): none reported Cognition(Intelligence Est.): above average Oriented: Awake, Alert, Oriented times three Insight: fair Judgment: Fair Psychosis: Denies Diagnoses Major depressive disorder, single episode, moderate Unspecified anxiety disorder PTSD A-FIB/CHADSVASC A-FIB History Current/History of A-Fib/PAF?: No Current PO Anticoag Therapy: No Assessment 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 He states some days I would like to go to sleep and not wake up. "Patient reports being very frustrated with a toxic environment within his squadron. He has a long history of PTSD going back to 2008 where he was deployed in [place]. He has been regularly seeing behavioral health but because he is required to be working, he finds that he is often tasked to do things that he physically cannot do, is against his "profile "and this increases his frustration, anxiety and stress level. Patient to be admitted to inpatient psychiatry for 5 to 7 days we will restart his home medications. Lexapro will be increased to 20 mg daily, will increase trazodone 200 mg per his report of poor sleep. Patient to be afforded individual and group therapy, medication management, milieu therapy, and a safe environment. Patient to be discharged when he is stable he will have follow-up with [facility] Initial Treatment Plan 1. Patient was admitted on a [9.39] status. 2. Complete history was obtained. 3. With patients permission, family will be contacted and database will be expanded. 4. Patients medication regimen will be reviewed and changed accordingly. 5. Patient will be provided with protected environment. 6. Patient will be treated with individual, group, and milieu therapies. 7. Patient will receive supportive psych-education. 8. Discharge planning will commence immediately. 9. Outpatient follow-up treatment will be strongly recommended. 10. The initial treatment plan will focus initially on: * Depression. * Risk for suicide. ESTIMATED LENGTH OF STAY: 5-7 DAYS. TIME SPENT COUNSELING AND COORDINATING INITIAL CARE: 60 minutes. Tobacco Cessation Screen If Patient is a Smoker Patient quit smoking 3 weeks ago N/A-No Antipsychotics Vital Signs Vital Signs Date Time Temp Pulse Resp B/P (MAP) Pulse Ox O2 Delivery O2 Flow Rate FiO2 04/29/21 06:06 97.8 79 18 148/98 (115) 97 Room Air Medications Scheduled Buspirone HCl (Buspirone HCl) 10 Mg Tablet, 10 MG PO BID, (Reported) Escitalopram Oxalate (Lexapro) 10 Mg Tablet, 10 MG PO DAILY, (Reported) Gabapentin (Gabapentin) 300 Mg Capsule, 300 MG PO QHS, (Reported) Trazodone HCl (Trazodone HCl) 50 Mg Tablet, 50 MG PO QPM, (Reported) Scheduled PRN Cyclobenzaprine HCl (Cyclobenzaprine HCl) 5 Mg Tablet, 5 MG PO QPM PRN for BACK PAIN, (Reported) Miscellaneous Medications [Comments] , (Reported) CONFIRMED WITH JOSE 04/28 Allergies Coded Allergies: No Known Allergies (Unverified , 01/02/21) ROBER RADFORD [employer]SI[employer] TEACHER Apr 29, 2021 12:34
[2021-04-29 16:22] VITALS: BP 136/76
--- NOTE | 2021-04-29 19:15 | HPEPDOC ---
General Date of Admission Apr 28, 2021 at 18:15 Date of Service: Apr 29, 2021 Chief Complaint The patient is a 35-year-old male admitted with a reason for visit of Unspecified Depressive Disorder. 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 He has been medically examined here for medical history and physical. Today patient complains of neck pain, back pain, bilateral knee pain. Reports that his pain is worse than usual as he was not given his gabapentin and cyclobenzaprine yesterday. Does not have any other complaints. Home Medications Scheduled Buspirone HCl (Buspirone HCl) 10 Mg Tablet, 10 MG PO BID, (Reported) Escitalopram Oxalate (Lexapro) 10 Mg Tablet, 10 MG PO DAILY, (Reported) Gabapentin (Gabapentin) 300 Mg Capsule, 300 MG PO QHS, (Reported) Trazodone HCl (Trazodone HCl) 50 Mg Tablet, 50 MG PO QPM, (Reported) Scheduled PRN Cyclobenzaprine HCl (Cyclobenzaprine HCl) 5 Mg Tablet, 5 MG PO QPM PRN for BACK PAIN, (Reported) Miscellaneous Medications [Comments] , (Reported) CONFIRMED WITH GARCIA 04/28 Allergies Coded Allergies: No Known Allergies (Unverified , 01/02/21) Past Medical History Medical History PTSD, anxiety, depression History of traumatic brain injury while deployed chronic pain -Has bilateral knee pain, chronic back pain, chronic shoulder pain, chronic back pain (gets PT, yoga, Pin[place] Garcia, combat acupuncture) chronic fatigue sleep issues CBT for PTSD Family History Maternal Grandmother - Breast Cancer - Mother - Fibromyalgia paternal grandfather - ETOH abuse A-FIB/CHADSVASC A-FIB History Current/History of A-Fib/PAF?: No Review of Systems Constitutional: Denies: Chills, Fever, Night Sweats Eyes: Denies: Pain, Vision change ENT: Reports: Head Aches; Denies: Ear Pain, Dysphagia Skin: Denies: Rash, Lesions, Breakdown Pulmonary: Denies: Dyspnea, Cough Cardiovascular: Denies: Chest Pain, Palpitations, Orthopnea, Paroxysmal Noc. Dyspnea, Lt Headedness Gastrointestinal: Denies: Nausea, Vomiting, Abdominal Pain, Diarrhea Genitourinary: Denies: Dysuria, Frequency, Incontinence, Retention Hematologic: Denies: Bruising, Bleeding Excessively Musculoskeletal: Reports: Neck Pain, Back Pain, Shoulder Pain, Joint Pain, Spasms Neurological: Denies: Weakness, Numbness, Change in speech, Confusion Physical Examination General Exam: Positive: Alert, Cooperative, No Acute Distress Eye Exam: Positive: PERRLA, Conjunctiva & lids normal, EOMI; Negative: Sclera icteric ENT Exam: Positive: Atraumatic, Mucous membr. 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 He has been medically examined here for medical history and physical. Generalized body pains and joint pains We will start the patient on Toradol Patient has already been ordered gabapentin and cyclobenzaprine will continue Depression/PTSD/anxiety As per psychiatry Plan / VTE VTE Prophylaxis Ordered?: No (Fully ambulatory) Karishma Rizzo MD Apr 29, 2021 13:38
[2021-04-29] MEDS: traZODone 100 MG TAB PO SCH (20:00)
[2021-04-29] MEDS: GABAPENTIN 300 MG CAP PO SCH (20:00)
[2021-04-29] MEDS: CYCLOBENZAPRINE 10MG TABLET PO SCH (20:00)
[2021-04-29] MEDS: KETOROLAC TROMETHAMINE 10 MG TAB PO SCH (22:40)
[2021-04-30 06:33] VITALS: BP 140/79
[2021-04-30] MEDS: ESCITALOPRAM OXALATE 10 MG TAB (LEXAPRO) PO SCH (08:04)
[2021-04-30] MEDS: busPIRone 10 MG TAB PO SCH ×2 (08:04→20:04)
[2021-04-30] MEDS: KETOROLAC TROMETHAMINE 10 MG TAB PO SCH ×3 (08:05→20:04)
[2021-04-30] MEDS: hydrOXYzine 50 MG TAB PO SCH ×3 (12:10→23:57)
[2021-04-30 16:16] VITALS: BP 141/89
--- NOTE | 2021-04-30 17:18 | MHIPNPDOC ---
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 He reports that he is been stressed over dealing with poor advocacy for his mental health and feels that he hasn't been heard for his need to care for his wellbeing. Reports that he feels safe he has been ignoring his depression since 2014. [place] [facility] appointment [facility] was in [facility], where he was evaluated for a TBI, thereafter he was seeing behavioral health on a regular basis with States that he acknowledged his depression in 2014, was dealing with anxiety for longer. He acknowledges that he has been ignoring PTSD symptoms that subsequently is affecting his physical health. He reports fleeting suicidal ideations wanting to go to sleep and not wake up, also having intense feelings of anger towards his chain of command. Since states that he feels frustrated over the lack of attention to his physical limitations and inability to perform some of the job limitations due to his "profile". He is being medically chaptered out of the . He reports that initially this was very upsetting to him as he had been working on a promotion in getting college credits in order to do this. Before he was allowed to go for this promotion his chain of command told him that he would be medically released from the due to the PTSD and mental and physical issues. Per ED report Pt self-presents to the ED reporting increased depression and anxiety, s/i no plan, and denies h/i but admits that he has thoughts of causing others physical harm. Pt reports he sees [facility] regularly, and has recently been informed that he will be medically released from the due to PTSD and other mental health issues. 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 Pt reports his PTSD is from his 3 previous deployments and has contributed immensely to pt.s stressors, depression, anxiety, and overall poor mental health. Pt reports he's had poor appetite and finds it difficult to fall asleep. He reports decreased motivation, poor energy, lack of interest and enjoyment, chronic fatigue and pain. Pt reports he sees a therapist and med provider through OP and states he is compliant with treatment and medications, and denies any substance abuse. Pt reports that he has no Hx of suicide attempts or gestures in his past, but he does report having thoughts. Pt reports he sometimes "feels like giving up and would anyone really care?" He states he's had times where he feels like he may be "better off gone" or wishing he could be or fall asleep and not wake up, but he reports he has no plan on how he would harm himself, no intention on harming himself, and has never had more than just thoughts that he would never actually follow through on. Pt also reports he has had some thoughts of causing physical harm to specific leaders of his unit in the , but reports he was not actually homicidal towards them. He also reports he had no thoughts of specific methods on how he would harm anyone, no specific plan, and no intention on acting through on anything in this aspect either. Pt reports being here in the ED has helped him immensely, as he has let his thoughts and feelings "bottle up" without talking about them, and was not in a good place because of this. However, since talking through his problems with TW and additionally ED staff, pt. reports that he is feeling much better and is able to CFS. Pt. states coming in was the correct choice for him because his OP was not available for him until tomorrow morning and he needed to talk before them. Pt reports "I came in today because I was feeling like giving up. If I hadn't come in I still wouldnt be feeling well and could have gotten into a physical fight or ended up beating someone up, but since i feel better and talked about everything that wont' happen." Pt is advocating to be discharged home, reporting he is safe and can contract for this. He also reports he resides with his whom is supportive and will not leave him alone. Pt reports he also has mental health appointments scheduled tomorrow and states he would be able to go to [facility] at 8am to follow up from today's visit. Pt has no weapons in the home and was able to assist TW with coming up with a safety plan for a potential safe discharge this evening. VITAL SIGNS: See below. NEW TEST RESULTS: none CURRENT MEDICATIONS: See below. 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 General Appearance: well groomed, appears stated age, hospital scrubs/clothing Build: overweight, tall Demeanor: average Eye Contact: average Activity: average Behavior: cooperative Speech: clear, reg/rate,rhythm,volume Mood: depressed Affect: flat Thought Process: logical/linear Thought Content (Delusions): none reported Thought Content (Other): none reported Thought Content (Aggressive): none reported Perception (Hallucinations): none reported Perception (Other): none reported Cognition (Impairment of): none reported Cognition(Intelligence Est.): above average Oriented: Awake, Alert, Oriented times three Insight: fair Judgment: Fair Psychosis: Denies DIAGNOSES: Major depressive disorder, single episode, moderate Unspecified anxiety disorder PTSD ASSESSMENT: Patient reports that he had improved sleep although he stated that during the night he was having a nightmare kicked the wall and hurt his toe, remains depressed rates his depression 4 out of 10. He states he has less anxiety today. Denies that he has suicidal or homicidal thoughts during the interview. Reports that trazodone was effective last night. Complains of knee and lower back pain. States I do feel mildly calmer today. MANAGEMENT PLAN: Continuing all medications as ordered, prazosin 2 mg at at bedtime per his report of nightmares TIME SPENT: 25 minutes. Vital Signs Vital Signs Date Time Temp Pulse Resp B/P (MAP) Pulse Ox O2 Delivery O2 Flow Rate FiO2 04/30/21 16:16 98.9 83 18 141/89 (106) 97 Room Air Current Medications Current Medications Medications (Trade) Dose Ordered Sig/Nirali Route PRN Reason Start Time Stop Time Status Last Admin Dose Admin Acetaminophen (Tylenol Tab) 650 mg Q6HP PRN PO HEADACHE or MILD DISCOMFORT 04/28/21 18:15 Al Hydrox/Mg Hydrox/Simethicone (Mylanta) 30 ml Q4HP PRN PO HEARTBURN/INDIGESTION 04/28/21 18:15 Buspirone HCl (Buspar) 10 mg BID PO 04/28/21 09:00 04/28/21 18:19 DC 04/28/21 09:35 Buspirone HCl (Buspar) 10 mg BID PO 04/28/21 21:00 04/30/21 08:04 Cyclobenzaprine HCl (Flexeril) 10 mg QHS PO 04/29/21 21:00 04/29/21 20:00 Escitalopram Oxalate (Lexapro) 10 mg DAILY PO 04/28/21 09:00 04/28/21 18:19 DC 04/28/21 09:35 Escitalopram Oxalate (Lexapro) 10 mg DAILY PO 04/29/21 09:00 04/29/21 12:03 DC 04/29/21 08:22 Escitalopram Oxalate (Lexapro) 20 mg DAILY PO 04/30/21 09:00 04/30/21 08:04 Gabapentin (Neurontin) 300 mg QHS PO 04/29/21 21:00 04/29/21 20:00 Home Med (Home Med List Complete!) ASDIRECTED XX 04/28/21 08:25 04/28/21 08:25 DC Hydroxyzine HCl (Atarax) 50 mg Q6H PO 04/30/21 12:00 04/30/21 12:10 Ketorolac Tromethamine (ToRADol) 10 mg TID PO 04/29/21 21:00 05/04/21 20:59 04/30/21 15:33 Magnesium Hydroxide (Milk Of Magnesia) 30 ml DAILYPRN PRN PO CONSTIPATION 04/28/21 18:15 Prazosin HCl (Minipress) 2 mg QHS PO 04/30/21 21:00 Trazodone HCl (Desyrel) 50 mg QHSP PRN PO INSOMNIA 04/28/21 18:15 04/29/21 12:03 DC 04/28/21 21:20 Trazodone HCl (Desyrel) 100 mg QHS PO 04/29/21 21:00 04/29/21 20:00 Allergies Coded Allergies: No Known Allergies (Unverified , 01/02/21) ROBER RADFORD NP Apr 30, 2021 17:18
[2021-04-30] MEDS: GABAPENTIN 300 MG CAP PO SCH (20:04)
[2021-04-30] MEDS: CYCLOBENZAPRINE 10MG TABLET PO SCH (20:04)
[2021-04-30] MEDS: traZODone 100 MG TAB PO SCH (20:04)
[2021-04-30] MEDS: PRAZOSIN 1 MG CAP PO SCH (20:05)
[2021-05-01] MEDS: hydrOXYzine 50 MG TAB PO SCH ×3 (06:19→17:08)
[2021-05-01 06:47] VITALS: BP 148/78
[2021-05-01] MEDS: ESCITALOPRAM OXALATE 10 MG TAB (LEXAPRO) PO SCH (08:21)
[2021-05-01] MEDS: busPIRone 10 MG TAB PO SCH ×2 (08:21→20:20)
[2021-05-01] MEDS: KETOROLAC TROMETHAMINE 10 MG TAB PO SCH ×3 (08:22→20:20)
[2021-05-01] MEDS ORDERED: LEXA1TAB2 PO (09:45)
[2021-05-01] MEDS ORDERED: HYDR50TA70 PO (09:45)
[2021-05-01] MEDS ORDERED: TRAZ-257 PO (09:45)
[2021-05-01] MEDS ORDERED: KETO10TAB PO (09:45)
[2021-05-01] MEDS ORDERED: PRAZ2CAP PO (09:45)
[2021-05-01] MEDS ORDERED: CYCL-707 PO (09:45)
--- NOTE | 2021-05-01 10:03 | MHIPNPDOC ---
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 He reports that he is been stressed over dealing with poor advocacy for his mental health and feels that he hasn't been heard for his need to care for his wellbeing. Reports that he feels safe he has been ignoring his depression since 2014. [place] first appointment [facility] was in [place], where he was evaluated for a TBI, thereafter he was seeing behavioral health on a regular basis with States that he acknowledged his depression in 2014, was dealing with anxiety for longer. He acknowledges that he has been ignoring PTSD symptoms that subsequently is affecting his physical health. He reports fleeting suicidal ideations wanting to go to sleep and not wake up, also having intense feelings of anger towards his chain of command. Since states that he feels frustrated over the lack of attention to his physical limitations and inability to perform some of the job limitations due to his "profile". He is being medically chaptered out of the . He reports that initially this was very upsetting to him as he had been working on a promotion in getting college credits in order to do this. Before he was allowed to go for this promotion his chain of command told him that he would be medically released from the due to the PTSD and mental and physical issues. Per ED report Pt self-presents to the ED reporting increased depression and anxiety, s/i no plan, and denies h/i but admits that he has thoughts of causing others physical harm. Pt reports he sees [facility] regularly, and has recently been informed that he will be medically released from the due to PTSD and other mental health issues. 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 Pt reports his PTSD is from his 3 previous deployments and has contributed immensely to pt.s stressors, depression, anxiety, and overall poor mental health. Pt reports he's had poor appetite and finds it difficult to fall asleep. He reports decreased motivation, poor energy, lack of interest and enjoyment, chronic fatigue and pain. Pt reports he sees a therapist and med provider through OP and states he is compliant with treatment and medications, and denies any substance abuse. Pt reports that he has no Hx of suicide attempts or gestures in his past, but he does report having thoughts. Pt reports he sometimes "feels like giving up and would anyone really care?" He states he's had times where he feels like he may be "better off gone" or wishing he could be or fall asleep and not wake up, but he reports he has no plan on how he would harm himself, no intention on harming himself, and has never had more than just thoughts that he would never actually follow through on. Pt also reports he has had some thoughts of causing physical harm to specific leaders of his unit in the , but reports he was not actually homicidal towards them. He also reports he had no thoughts of specific methods on how he would harm anyone, no specific plan, and no intention on acting through on anything in this aspect either. Pt reports being here in the ED has helped him immensely, as he has let his thoughts and feelings "bottle up" without talking about them, and was not in a good place because of this. However, since talking through his problems with TW and additionally ED staff, pt. reports that he is feeling much better and is able to CFS. Pt. states coming in was the correct choice for him because his OP was not available for him until tomorrow morning and he needed to talk before them. Pt reports "I came in today because I was feeling like giving up. If I hadn't come in I still wouldnt be feeling well and could have gotten into a physical fight or ended up beating someone up, but since i feel better and talked about everything that wont' happen." Pt is advocating to be discharged home, reporting he is safe and can contract for this. He also reports he resides with his whom is supportive and will not leave him alone. Pt reports he also has mental health appointments scheduled tomorrow and states he would be able to go to [facility] at 8am to follow up from today's visit. Pt has no weapons in the home and was able to assist TW with coming up with a safety plan for a potential safe discharge this evening. VITAL SIGNS: See below. NEW TEST RESULTS: none CURRENT MEDICATIONS: See below. 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 No suicidal or homicidal ideations but continues to have lingering frustration with chain of command. General Appearance: well groomed, appears stated age, hospital scrubs/clothing Build: overweight, tall Demeanor: average Eye Contact: average Activity: average Behavior: cooperative Speech: clear, reg/rate,rhythm,volume Mood: euthymic, less depressed Affect: neutral, congruent with mood Thought Process: logical/linear Thought Content (Delusions): none reported Thought Content (Other): none reported Thought Content (Aggressive): none reported Perception (Hallucinations): none reported Perception (Other): none reported Cognition (Impairment of): none reported Cognition(Intelligence Est.): above average Oriented: Awake, Alert, Oriented times three Insight: Good Judgment: Good Psychosis: Denies DIAGNOSES: Major depressive disorder, single episode, moderate Unspecified anxiety disorder PTSD ASSESSMENT: Patient reports he is feeling better. Rating his depression 4/10 here as compared to 9/10 at home, anxiety was 6/10 here at the hospital as compared to 11/10 at home. He talked about how he felt he was not being listened to in the and his profile was not being followed. Upon discharge he is considering legal action. Patient was frustrated the chain of command did not notify his that he was here at the hospital and was also being cut-off and interrupted. Patient wants to be discharged. His mood and affect seem to be improved. He feels a little tired but but also feels he is in a "good place" and "manageable" with his current medications. Patient denies suicidal ideations and homicidal ideations. MANAGEMENT PLAN: Continuing all medications as ordered, prazosin 2 mg at at bedtime per his report of nightmares TIME SPENT: 25 minutes. Vital Signs Vital Signs Date Time Temp Pulse Resp B/P (MAP) Pulse Ox O2 Delivery O2 Flow Rate FiO2 05/01/21 06:47 98.4 88 19 148/78 (101) 99 Room Air Current Medications Current Medications Medications (Trade) Dose Ordered Sig/Nirali Route PRN Reason Start Time Stop Time Status Last Admin Dose Admin Acetaminophen (Tylenol Tab) 650 mg Q6HP PRN PO HEADACHE or MILD DISCOMFORT 04/28/21 18:15 Al Hydrox/Mg Hydrox/Simethicone (Mylanta) 30 ml Q4HP PRN PO HEARTBURN/INDIGESTION 04/28/21 18:15 Buspirone HCl (Buspar) 10 mg BID PO 04/28/21 09:00 04/28/21 18:19 DC 04/28/21 09:35 Buspirone HCl (Buspar) 10 mg BID PO 04/28/21 21:00 05/01/21 08:21 Cyclobenzaprine HCl (Flexeril) 10 mg QHS PO 04/29/21 21:00 04/30/21 20:04 Escitalopram Oxalate (Lexapro) 10 mg DAILY PO 04/28/21 09:00 04/28/21 18:19 DC 04/28/21 09:35 Escitalopram Oxalate (Lexapro) 10 mg DAILY PO 04/29/21 09:00 04/29/21 12:03 DC 04/29/21 08:22 Escitalopram Oxalate (Lexapro) 20 mg DAILY PO 04/30/21 09:00 05/01/21 08:21 Gabapentin (Neurontin) 300 mg QHS PO 04/29/21 21:00 04/30/21 20:04 Home Med (Home Med List Complete!) ASDIRECTED XX 04/28/21 08:25 04/28/21 08:25 DC Hydroxyzine HCl (Atarax) 50 mg Q6H PO 04/30/21 12:00 05/01/21 06:19 Ketorolac Tromethamine (ToRADol) 10 mg TID PO 04/29/21 21:00 05/04/21 20:59 05/01/21 08:22 Magnesium Hydroxide (Milk Of Magnesia) 30 ml DAILYPRN PRN PO CONSTIPATION 04/28/21 18:15 Prazosin HCl (Minipress) 2 mg QHS PO 04/30/21 21:00 04/30/21 20:05 Trazodone HCl (Desyrel) 50 mg QHSP PRN PO INSOMNIA 04/28/21 18:15 04/29/21 12:03 DC 04/28/21 21:20 Trazodone HCl (Desyrel) 100 mg QHS PO 04/29/21 21:00 04/30/21 20:04 Allergies Coded Allergies: No Known Allergies (Unverified , 01/02/21) ROBER RADFORD NP May 01, 2021 10:02
--- NOTE | 2021-05-01 10:26 | REP ---
INDICATION: left big toe edema, ecchymosis, kicked a wall. COMPARISON: None. TECHNIQUE: Four views FINDINGS: The joint spaces are symmetric and relatively well maintained. There is no evidence of acute fracture or destructive osseous lesion. IMPRESSION: No acute osseous abnormality <Electronically signed by Jay Vidal > 05/01/21 1021
[2021-05-01 18:39] VITALS: BP 146/28
[2021-05-01 20:19] VITALS: BP 146/28
[2021-05-01] MEDS: CYCLOBENZAPRINE 10MG TABLET PO SCH (20:19)
[2021-05-01] MEDS: GABAPENTIN 300 MG CAP PO SCH (20:19)
[2021-05-01] MEDS: PRAZOSIN 1 MG CAP PO SCH (20:19)
[2021-05-01] MEDS: traZODone 100 MG TAB PO SCH (20:20)
[2021-05-02] MEDS: hydrOXYzine 50 MG TAB PO SCH ×2 (05:41)
[2021-05-02 06:27] VITALS: BP 128/86
[2021-05-02] MEDS: busPIRone 10 MG TAB PO SCH (08:31)
[2021-05-02] MEDS: ESCITALOPRAM OXALATE 10 MG TAB (LEXAPRO) PO SCH (08:31)
[2021-05-02] MEDS: KETOROLAC TROMETHAMINE 10 MG TAB PO SCH (08:33)
--- NOTE | 2021-05-02 15:34 | MHDSPDOC ---
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 He reports that he is been stressed over dealing with poor advocacy for his mental health and feels that he hasn't been heard for his need to care for his wellbeing. Reports that he feels safe he has been ignoring his depression since 2014. His first appointment to [facility] was in 2008, where he was evaluated for a TBI, thereafter he was seeing behavioral health on a regular basis with States that he acknowledged his depression in 2014, was dealing with anxiety for longer. He acknowledges that he has been ignoring PTSD symptoms that subsequent ly is affecting his physical health. He reports fleeting suicidal ideations wanting to go to sleep and not wake up, also having intense feelings of anger towards his chain of command. Since states that he feels frustrated over the lack of attention to his physical limitations and inability to perform some of the job limitations due to his "profile". He is being medically chaptered out of the . He reports that initially this was very upsetting to him as he had been working on a promotion in getting college credits in order to do this. Before he was allowed to go for this promotion his chain of command told him that he would be medically released from the due to the PTSD and mental and physical issues. Per ED report Pt self-presents to the ED reporting increased depression and anxiety, s/i no plan, and denies h/i but admits that he has thoughts of causing others physical harm. Pt reports he sees [facility] regularly, and has recently been informed that he will be medically released from the due to PTSD and other mental health issues. 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 Pt reports his PTSD is from his 3 previous deployments and has contributed immensely to pt.s stressors, depression, anxiety, and overall poor mental health. Pt reports he's had poor appetite and finds it difficult to fall asleep. He reports decreased motivation, poor energy, lack of interest and enjoyment, chronic fatigue and pain. Pt reports he sees a therapist and med provider through OP and states he is compliant with treatment and medications, and denies any substance abuse. Pt reports that he has no Hx of suicide attempts or gestures in his past, but he does report having thoughts. Pt reports he sometimes "feels like giving up and would anyone really care?" He states he's had times where he feels like he may be "better off gone" or wishing he could be or fall asleep and not wake up, but he reports he has no plan on how he would harm himself, no intention on harming himself, and has never had more than just thoughts that he would never actually follow through on. Pt also reports he has had some thoughts of causing physical harm to specific leaders of his unit in the , but reports he was not actually homicidal towards them. He also reports he had no thoughts of specific methods on how he would harm anyone, no specific plan, and no intention on acting through on anything in this aspect either. Pt reports being here in the ED has helped him immensely, as he has let his thoughts and feelings "bottle up" without talking about them, and was not in a good place because of this. However, since talking through his problems with TW and additionally ED staff, pt. reports that he is feeling much better and is able to CFS. Pt. states coming in was the correct choice for him because his OP was not available for him until tomorrow morning and he needed to talk before them. Pt reports "I came in today because I was feeling like giving up. If I hadn't come in I still wouldnt be feeling well and could have gotten into a physical fight or ended up beating someone up, but since i feel better and talked about everything that wont' happen." Pt is advocating to be discharged home, reporting he is safe and can contract for this. He also reports he resides with his whom is supportive and will not leave him alone. Pt reports he also has mental health appointments scheduled tomorrow and states he would be able to go to [facility] at 8am to follow up from today's visit. Pt has no weapons in the home and was able to assist TW with coming up with a safety plan for a potential safe discharge this evening. VITAL SIGNS: See below. CONSULTANTS INVOLVED: See Medical H + P by Hospitalist TREATMENT AND PROGRESS ON THE UNIT: Patient was admitted to the [facility] on a legal status was afforded the following treatment modalities: 1) Individual Therapy 2) Group Therapy 3) Medication Management 4) Milieu Therapy 5) Safe Environment HOSPITAL COURSE: Patient was admitted to [facility] on a legal status. Patient was admitted for suicidal and homicidal ideations. Patient was restarted on his home medications with an increase of his Lexapro to 20 mg daily, additionally he was given hydroxyzine 50 mg twice daily as needed for anxiety upon discharge, and prazosin 2 mg at bedtime for nightmares - patient has a documented history of posttraumatic stress disorder. The pt found medications beneficial and tolerated them well. Mood, anxiety, and intrusive thoughts improved with treatment. Pt attended groups daily during stay. Pts symptoms improved with treatment. Patient reports he is feeling better. Yesterday he was rating his depression 4/10 here as compared to 9/10 at home, anxiety was 6/10 here at the hospital as compared to 11/10 at home. Patient was very engaged in individual therapy he discusses how he felt about not being listened to in the and his profile was not being followed. Upon discharge he is considering legal action. Patient was frustrated the chain of command in not recognizing his limitations physically and mentally. Patient requested to be discharged. His mood and affect seem to be improved. He f feels he is in a "good place" and "manageable" with his current medications. Patient denies suicidal ideations and homicidal ideations. On day of discharge pt. denied depression, anxiety, insomnia, SI/HI, hallucinations, delusions. Pt was discharged home with follow-up with for term behavioral health. Pt felt safe for discharge. DISCHARGE ASSESSMENT: In today's interview, patient is alert and oriented, pt.s dress is appropriate. Hygiene and grooming is well-kempt. Smiles on approach and is pleasant and engaged in the interview. Denies depression and anxiety. Denies suicidal and homicidal ideation, planning or intent. Denies and is not observed with rickey, psychotic symptoms of delusions, bizarre thinking, obsessions, paranoia, ruminations illogical thoughts, flight of ideas or having poor insight and judgement. Reinforced with patient need to abstain from alcohol and drugs. At discharge patient has normal mentation, declines further hospitalization on a voluntary status and meets criteria for discharge today. Discussed indications of medications, potential benefits and risks, alternatives (including no treatment) and questions were encouraged and answered. Patient encouraged to return to hospital if symptoms worsen or change and encouraged to call unit if he/she/they needs to speak to provider for questions regarding medications or care. 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 Denies suicidal/homicidal ideation, planning or intent. Abstract reasoning, and computation: fair Description of associations: denies, none observed Description of abnormal or psychotic thoughts: denies, none observed. Judgment: fair Insight: fair Orientation: alert and oriented to person, place, time and situation Recent and remote memory: intact Attention span and concentration: good Language: expansive Fund of knowledge: average Mood: Euthymic Mood Affect: reactive Suicide Risk Assessment: 1) Does the patient wish to be ? No 2) Since your admission, have you had any actual thought of killing yourself? No 3) Since your admission, have you been thinking about how you might do this? No 4) Since your admission, have you had these thoughts and had some intention of acting on them? No 5) Since your admission, have you started to work out or worked out the details of how to kill yourself? No 5A) Do you intent to carry out this plan? No and NA 6) Have you ever done anything, started anything, or prepared to do anything with any intent to ? No 6A) How long since your admission did you do any of these? NA MEDICATIONS ON DISCHARGE: See Medication Reconciliation PLAN/FOLLOWUP ARRANGEMENTS: Ora peña [facility] The amount of time spent in the coordination of care for this patient was approximately 25 minutes. ETOH/Disorder Med Rx ETOH/DRUG DISORDER RX: N/A Vital Signs/I&Os Vital Signs Date Time Temp Pulse Resp B/P (MAP) Pulse Ox O2 Delivery O2 Flow Rate FiO2 05/02/21 06:27 97.8 98 20 128/86 (100) 97 Room Air Medications Scheduled Buspirone HCl (Buspirone HCl) 10 Mg Tablet, 10 MG PO BID, (Reported) Cyclobenzaprine HCl (Cyclobenzaprine HCl) 10 Mg Tablet, 10 MG PO QHS for Back Spasm, #7 Escitalopram Oxalate (Lexapro) 20 Mg Tablet, 20 MG PO DAILY for Depression, #7 Gabapentin (Gabapentin) 300 Mg Capsule, 300 MG PO QHS for 5 Days, #5 (Reported) Ketorolac Tromethamine (Ketorolac Tromethamine) 10 Mg Tablet, 10 MG PO TID for Pain for 7 Days, #21 Prazosin Hcl (Prazosin HCl) 2 Mg Capsule, 2 MG PO QHS for Nightmares for 7 Days, #7 Trazodone HCl (Trazodone HCl) 100 Mg Tablet, 100 MG PO QHS for Sleep, #7 Scheduled PRN Hydroxyzine HCl (Hydroxyzine HCl) 50 Mg Tablet, 50 MG PO BIDP PRN for ANXIETY, #14 Allergies Coded Allergies: No Known Allergies (Unverified , 01/02/21) ROBER RADFORD [employer] May 02, 2021 15:27
== END 2021-05-02 09:55 | disposition home or self-care (01) | DRG 885 ==
LOC: M ED 12:42 → M ED INP 04-28 18:15 → M PSY 04-28 20:19
PROVIDERS: ADMIT Psychiatry & Neurology Psychiatry; ATTEND Psychiatry & Neurology Psychiatry
DX: F32.1 Major depressive disorder, single episode, moderate (principal); R45.851 Suicidal ideations; R45.850 Homicidal ideations; F41.9 Anxiety disorder, unspecified; Z79.899 Other long term (current) drug therapy; G89.29 Other chronic pain

== ENCOUNTER 2021-06-05 13:13 | Emergency (ER) | payer OTHER ==
[~2021-06-05] VITALS: Ht 180.3 cm; Wt 109.3 kg
[~2021-06-05 13:13] MED LIST changes: +BUSP10TA PO; +BUSP5TA PO; +CELE10TA PO; +COMMENTS; +CYCL-707 PO; +CYCL5TAB PO; +GABA-282 PO; +GABA-283 PO; +HYDR50TA70 PO; +KETO10TAB PO; +LEXA1TAB PO; +LEXA1TAB2 PO; +PRAZ2CAP PO; +TRAZ-252 PO; +TRAZ-257 PO; +TRAZ1TAB12 PO
[2021-06-05 13:53] LABS: HEMATOCRIT 45.9 % (42.0-52.0); HEMOGLOBIN 14.9 g/dl (13.5-17.5); MEAN CORPUSCULAR HEMOGLOBIN 27.1 pg (27.0-33.0); MEAN CORPUSCULAR HGB CONC 32.5 g/dl (32.0-36.5); MEAN CORPUSCULAR VOLUME 83.5 fl (80.0-96.0); PLATELET COUNT, AUTOMATED 232 10^3/uL (150-450); WHITE BLOOD COUNT 10.5 10^3/uL (4.0-10.0)
[2021-06-05 14:14] LABS: AMPHETAMINES LEVEL URINE NEGATIVE (NEGATIVE); BARBITURATES URINE NEGATIVE (NEGATIVE); BENZODIAZEPINES URINE NEGATIVE (NEGATIVE); CANNABINOIDS URINE NEGATIVE (NEGATIVE); COCAINE METABOLITE URINE NEGATIVE (NEGATIVE); METHADONE URINE NEGATIVE (NEGATIVE); OPIATES URINE NEGATIVE (NEGATIVE); PHENCYCLIDINE URINE NEGATIVE (NEGATIVE)
[2021-06-05 14:27] LABS: ACETAMINOPHEN LEVEL < 2.0 UG/ML (10.0-30.0); ALBUMIN 3.7 GM/DL (3.2-5.2); ALT/SGPT 50 U/L (12-78); BILIRUBIN,DIRECT 0.1 MG/DL (0.0-0.2); BILIRUBIN,TOTAL 0.3 MG/DL (0.2-1.0); BLOOD UREA NITROGEN 15 MG/DL (7-18); CALCIUM LEVEL 8.9 MG/DL (8.5-10.1); CARBON DIOXIDE LEVEL 27 MEQ/L (21-32); CHLORIDE LEVEL 108 MEQ/L (98-107); CREATININE FOR GFR 1.34 MG/DL (0.70-1.30); ETHYL ALCOHOL (ETHANOL) < 0.003 % (0.000-0.010); GLOMERULAR FILTRATION RATE > 60.0 (>60); GLUCOSE, FASTING 132 MG/DL (70-100); POTASSIUM SERUM 4.1 MEQ/L (3.5-5.1); SALICYLATE LEVEL < 1.7 MG/DL (5.0-30.0); SODIUM LEVEL 142 MEQ/L (136-145); TOTAL PROTEIN 7.1 GM/DL (6.4-8.2)
[2021-06-05 15:47] LABS: RSV AMPLIFICATION NEGATIVE (NEGATIVE)
[2021-06-05] MEDS ORDERED: LORazepam 2 MG TAB PO PRN (19:00)
[2021-06-05] MEDS ORDERED: THIAMINE 100 MG TAB PO SCH (21:00)
[2021-06-05] MEDS ORDERED: LEXA1TAB2 PO (23:03)
[2021-06-05] MEDS ORDERED: HYDR50TA70 PO (23:03)
[2021-06-05] MEDS ORDERED: PRAZ2CAP PO (23:03)
[2021-06-05] MEDS ORDERED: GABA-282 PO (23:03)
[2021-06-05] MEDS ORDERED: TRAZ-257 PO (23:03)
[2021-06-05] MEDS ORDERED: CYCL10TA20 PO (23:03)
[2021-06-05] MEDS ORDERED: HOME MED LIST COMPLETE! XX SCH (23:05)
[2021-06-06] MEDS ORDERED: FOLIC ACID 1 MG TAB PO SCH (09:00)
[2021-06-06] MEDS ORDERED: MULTIVITAMINS/MINERALS THERAP 1 TAB PO SCH (09:00)
[2021-06-06 11:11] VITALS: BP 130/74
== END 2021-06-06 11:15 ==
LOC: M ED 13:13
DX: R45.851 Suicidal ideations (principal); F43.10 Post-traumatic stress disorder, unspecified; F41.0 Panic disorder [episodic paroxysmal anxiety]; G89.29 Other chronic pain; M54.50 Low back pain, unspecified; F17.200 Nicotine dependence, unspecified, uncomplicated; Z79.899 Other long term (current) drug therapy